=== PATIENT | male | born 1945 | race Caucasian/White ===

== ENCOUNTER 2017-01-11 13:09 | Inpatient (IN) | payer MEDICARE, MEDICAID ==
--- NOTE | 2017-01-11 13:17 | ED.PDOC ---
History of Present Illness - General Chief Complaint: General Stated Complaint: recurrent falls Time Seen by Provider: 01/11/17 13:16 Source: patient Exam Limitations: no limitations - History of Present Illness Initial Comments: Omid Castro 71 y/o male half-way resident at [facility] brought by ems after he fell on his left side at half-way and unable to get up ,He stated had fell 2-3 x this week at [facility].Denies head ,neck injuries.No weakness,no blurry vision but his arms had been twitching after he fell. Timing/Duration: 1-3 hours Severity: moderate Improving Factors: nothing Worsening Factors: nothing Associated Symptoms: shortness of breath Allergies/Adverse Reactions: Allergies Celecoxib [From Celebrex] Allergy (Verified 01/11/17 13:46) Metformin Allergy (Verified 01/11/17 13:46) NSAIDs Allergy (Verified 09/26/15 14:55) Home Medications: Ambulatory Orders Ascorbic Acid [Vitamin C] 500 mg PO BID 02/17/14 Furosemide [Lasix] 40 mg PO BID 02/17/14 HYDROcodone 7.5MG/APAP 325MG [[place] 7.5/325] 1 tab PO Q4H PRN 02/17/14 Metoprolol Tartrate 25 mg PO BID 02/17/14 Potassium Chloride [K-Tab] 40 meq PO DAILY 10/05/14 Albuterol Inhaler [Ventolin Hfa Inhaler] 2 puff INH Q6H PRN 09/26/15 Buspirone HCl 5 mg PO TID 09/26/15 Calcium Carbonate-Cholecalcife [Calcium 600+D3 600-400 mg-Unit] 1 tab PO DAILY 09/26/15 Ferrous Sulfate [Iron] 325 mg PO DAILY 09/26/15 Fluticasone-Salmeterol [Advair Hfa] 2 inh IN BID 09/26/15 Nitroglycerin 0.4 mg Tab [Nitrostat] 1 ea SL PRN 09/26/15 Warfarin Sodium [Coumadin] 4 mg PO MOTUWETHFR 09/26/15 Warfarin Sodium [Coumadin] 6 mg PO SUSA 09/26/15 predniSONE 10 mg PO QAM 09/26/15 Duloxetine HCl [Cymbalta] 60 mg PO BEDTIME 01/11/17 Gabapentin [Neurontin] 300 mg PO Q8H 01/11/17 Ipratropium/Albuterol [Duoneb] 3 ml NEB QID PRN 01/11/17 Lactobacillus [Acidophilus] 2 cap PO TID 01/11/17 Loperamide HCl 2 mg PO PRN 01/11/17 Urea 40 % EX DAILY 01/11/17 Review of Systems - Review of Systems Constitutional: States: no symptoms reported EENTM: States: no symptoms reported Respiratory: States: see HPI Cardiology: States: no symptoms reported Gastrointestinal/Abdominal: States: no symptoms reported Genitourinary: States: no symptoms reported Musculoskeletal: States: see HPI Skin: States: no symptoms reported Neurological: States: no symptoms reported Past Medical History (General) - Patient Medical History Hx Seizures: No Hx Stroke: No Hx Dementia: No Hx Asthma: No Hx of COPD: Yes Hx Cardiac Disorders: Yes - A-fib, heart failure Hx Congestive Heart Failure: No Hx Pacemaker: No Hx Hypertension: Yes Hx Thyroid Disease: No Hx Diabetes: No Hx Gastroesophageal Reflux: Yes Hx Renal Disease: No Hx Cancer: No Hx of HIV: No Hx Hepatitis C: No Hx MRSA: No Hx Other PMH: Yes - sleep apnea on cpap MRSA Source:: Wound Surgical History: cholecystectomy, other - cataracts;toe amputations both feet- frostbite - Vaccination History Hx Tetanus, Diphtheria Vaccination: Yes Hx Influenza Vaccination: Yes - 2013 Hx Pneumococcal Vaccination: Yes - 2013 - Social History Hx Tobacco Use: Yes Years Tobacco Use: 55 Cigarettes Packs Per Day: 20 Hx Chewing Tobacco Use: No - does not chew anymore Hx Alcohol Use: No Hx Substance Use: No Hx Substance Use Treatment: No Hx Depression: Yes Hx Physical Abuse: No Hx Emotional Abuse: No Hx Suspected Abuse: No - Female History Patient : No Family Medical History - Family History Mother Family History: No Known Name: mom Age (years): 56 Living Status: Still Living Cause of : cancer Hx Family Asthma: No Hx Family Congestive Heart Failure: No Hx Family Hypertension: No Hx Family Stroke: No Hx Cardiac Disease: No Hx Family Diabetes: No Hx Family Cancer: Yes Physical Exam - Physical Exam General Appearance: Alert, No apparent distress, Other - speech fluent Eye Exam: bilateral normal Ears, Nose, Throat: normal pharynx Neck: full range of motion Respiratory: no respiratory distress, decreased breath sounds Cardiovascular/Chest: normal peripheral pulses, no murmur, irregularly irregular Peripheral Pulses: radial,right: 2+, radial,left: 2+ Gastrointestinal/Abdominal: normal bowel sounds, non tender, soft, no organomegaly Extremity: non-tender, pedal edema, other - all toes amputated Neurologic: no motor/sensory deficits, alert, oriented x 3, other - negative pronator drift Skin Exam: warm/dry Lymphatic: no adenopathy Progress - Progress Progress: 01/11/17 13:39 Last Vital Signs Temp 99.5 F 01/11/17 13:20 Pulse 80 01/11/17 13:20 Resp 24 01/11/17 13:20 BP 134/70 01/11/17 13:20 Pulse Ox 73 L 01/11/17 13:20 - Results/Orders Results/Orders: Laboratory Tests 01/11/17 01/11/17 01/11/17 13:46 13:55 14:50 WBC 14.5 H RBC 5.97 Hgb 17.4 Hct 54.1 H MCV 90.6 MCH 29.1 MCHC 32.1 L RDW 14.8 H Plt Count 174 MPV 9.3 Absolute Neuts (auto) 12.20 H Absolute Lymphs (auto) 1.30 Absolute Monos (auto) 0.90 H Absolute Eos (auto) 0.00 Absolute Basos (auto) 0.10 Neutrophils % 83.8 H Lymphocytes % 9.0 L Monocytes % 6.4 Eosinophils % 0.2 L Basophils % 0.6 PT INR PTT (SP) D-Dimer, Quantitative Sodium Potassium Chloride Carbon Dioxide Anion Gap BUN Creatinine BUN/Creatinine Ratio Random Glucose Serum Osmolality Lactic Acid Uric Acid 7.4 H Calcium Magnesium 2.2 Total Bilirubin AST ALT Alkaline Phosphatase Troponin I B-Natriuretic Peptide Serum Total Protein Albumin Globulin Albumin/Globulin Ratio Urine Color Yellow Urine Appearance Clear Urine pH 5.0 Ur Specific [place] 1.015 Urine Protein Negative Urine Glucose (UA) Negative Urine Ketones Negative Urine Blood Trace-intact H Urine Nitrite Negative Urine Bilirubin Negative Urine Urobilinogen 0.2 Ur Leukocyte Esterase Negative Urine RBC 0-1 Urine WBC 0 Ur Epithelial Cells 1-3 Urine Bacteria 0 01/11/17 01/11/17 01/11/17 14:50 14:50 14:50 WBC RBC Hgb Hct MCV MCH MCHC RDW Plt Count MPV Absolute Neuts (auto) Absolute Lymphs (auto) Absolute Monos (auto) Absolute Eos (auto) Absolute Basos (auto) Neutrophils % Lymphocytes % Monocytes % Eosinophils % Basophils % PT 18.4 H INR 1.640 PTT (SP) 39.9 H D-Dimer, Quantitative 380 H* Sodium 143 Potassium 4.6 Chloride 102 Carbon Dioxide 36 H Anion Gap 9.6 L BUN 36 H Creatinine 2.13 H BUN/Creatinine Ratio 16.9 Random Glucose 112 H Serum Osmolality 294.1 Lactic Acid Uric Acid Calcium 9.5 Magnesium Total Bilirubin 0.3 AST 17 ALT 17 Alkaline Phosphatase 70 Troponin I 0.04 B-Natriuretic Peptide 95.0 Serum Total Protein 7.2 Albumin 3.9 Globulin 3.3 Albumin/Globulin Ratio 1.2 Urine Color Urine Appearance Urine pH Ur Specific [place] Urine Protein Urine Glucose (UA) Urine Ketones Urine Blood Urine Nitrite Urine Bilirubin Urine Urobilinogen Ur Leukocyte Esterase Urine RBC Urine WBC Ur Epithelial Cells Urine Bacteria 01/11/17 16:56 WBC RBC Hgb Hct MCV MCH MCHC RDW Plt Count MPV Absolute Neuts (auto) Absolute Lymphs (auto) Absolute Monos (auto) Absolute Eos (auto) Absolute Basos (auto) Neutrophils % Lymphocytes % Monocytes % Eosinophils % Basophils % PT INR PTT (SP) D-Dimer, Quantitative Sodium Potassium Chloride Carbon Dioxide Anion Gap BUN Creatinine BUN/Creatinine Ratio Random Glucose Serum Osmolality Lactic Acid 0.6 Uric Acid Calcium Magnesium Total Bilirubin AST ALT Alkaline Phosphatase Troponin I B-Natriuretic Peptide Serum Total Protein Albumin Globulin Albumin/Globulin Ratio Urine Color Urine Appearance Urine pH Ur Specific [place] Urine Protein Urine Glucose (UA) Urine Ketones Urine Blood Urine Nitrite Urine Bilirubin Urine Urobilinogen Ur Leukocyte Esterase Urine RBC Urine WBC Ur Epithelial Cells Urine Bacteria Allergies Celecoxib [From Celebrex] Allergy (Verified 01/11/17 13:46) Metformin Allergy (Verified 01/11/17 13:46) NSAIDs Allergy (Verified 09/26/15 14:55) Clinical Data Height 6 ft 1 in Weight 294 lb Visit Reason RECURRENT FALLS,HX COPD,A-FIB General Patient Data Advance Directives No Resuscitation Status Full Code Date of Arrival on Unit: Time of Arrival on Unit: Mode of Arrival Stretcher Accompanied By Alone Precaution/Isolation: Vital Signs Temp Pulse Resp BP Pulse Ox 99.5 F 79 22 132/84 92 L 01/11/17 13:20 01/11/17 17:00 01/11/17 17:00 01/11/17 17:00 01/11/17 17:00 I&O 01/10/17 01/11/17 01/12/17 06:59 06:59 06:59 Intake Total 50 Balance 50 Intake: IV 50 Rocephin 1 GM In NS 50ml 50 MINI-BAG+ 50 ML @ 100 mls /hr IVPB Q24H [facility] Rx#: [id number] Other: Weight 294 lb Weight Measurement Method Stated by Patient Nursing Care Orders 01/11/17 13:40 SVN/Updraft Therapy .ONCE 01/11/17 16:22 SVN/Updraft Therapy .ONCE Laboratory Orders 01/11/17 16:56 BLOOD CULTURE Stat Comment: ISIAH Source: Blood Quantity: 2 Specimen: Send someone from the department to collect Specimen Description: Respiratory Orders 01/11/17 16:00 ABG [Arterial Blood Gas] Stat Comment: Specimen: Send someone from the department to collect Site: Arterial CO-OX: Without CO-OX EKG STAT Comment: 01/11/17 17:58 ABG [Arterial Blood Gas] Stat Comment: Specimen: Send someone from the department to collect Site: Arterial CO-OX: With CO-OX 01/12/17 09:00 Updrafts Daily Comment: Medication(s): duoneb Updrafts Daily Comment: Medication(s): duoneb Medications Orders 01/11/17 16:30 cefTRIAXone SODIUM [Rocephin] 1 gm Sodium Chl 0.9% 50Ml Min-Bag+ [NS 50ml MINI -BAG+] 50 ml IVPB Q24H 01/11/17 13:40 SVN/Updraft Therapy .ONCE 01/11/17 16:00 ABG [Arterial Blood Gas] Stat EKG STAT 01/11/17 16:22 SVN/Updraft Therapy .ONCE 01/11/17 16:30 cefTRIAXone SODIUM [Rocephin] 1 gm Sodium Chl 0.9% 50Ml Min-Bag+ [NS 50ml MINI -BAG+] 50 ml IVPB Q24H 01/11/17 16:56 BLOOD CULTURE Stat 01/11/17 17:58 ABG [Arterial Blood Gas] Stat 01/12/17 09:00 Updrafts Daily Updrafts Daily Laboratory Results WBC 14.5 K/mm3 (4.8-10.8) H 01/11/17 14:50 RBC 5.97 M/mm3 (4.70-6.10) 01/11/17 14:50 Hgb 17.4 gm/dL (14.0-18.0) 01/11/17 14:50 Hct 54.1 % (42.0-52.0) H 01/11/17 14:50 MCV 90.6 fl (80.0-94.0) 01/11/17 14:50 MCH 29.1 pg (27.0-31.0) 01/11/17 14:50 MCHC 32.1 g/dL (33.0-37.0) L 01/11/17 14:50 RDW 14.8 % (11.5-14.5) H 01/11/17 14:50 Plt Count 174 K/mm3 (130-400) 01/11/17 14:50 MPV 9.3 fl (7.40-10.4) 01/11/17 14:50 Absolute Neuts (auto) 12.20 K/uL (1.8-6.8) H 01/11/17 14:50 Absolute Lymphs (auto) 1.30 K/uL (1.0-3.4) 01/11/17 14:50 Absolute Monos (auto) 0.90 K/uL (0.2-0.8) H 01/11/17 14:50 Absolute Eos (auto) 0.00 K/uL (0.0-0.4) 01/11/17 14:50 Absolute Basos (auto) 0.10 K/uL (0.0-0.1) 01/11/17 14:50 Neutrophils % 83.8 % (42.0-78.0) H 01/11/17 14:50 Lymphocytes % 9.0 % (20.0-50.0) L 01/11/17 14:50 Monocytes % 6.4 % (2.0-9.0) 01/11/17 14:50 Eosinophils % 0.2 % (1.0-5.0) L 01/11/17 14:50 Basophils % 0.6 % (0.0-2.0) 01/11/17 14:50 PT 18.4 SECONDS (9.4-12.5) H 01/11/17 14:50 INR 1.640 01/11/17 14:50 PTT (SP) 39.9 SECONDS (25.1-36.5) H 01/11/17 14:50 D-Dimer, Quantitative 380 ng/mL (0-230) H* 01/11/17 14:50 Sodium 143 mmol/L (135-145) 01/11/17 14:50 Potassium 4.6 mmol/L (3.6-5.0) 01/11/17 14:50 Chloride 102 mmol/L (101-111) 01/11/17 14:50 Carbon Dioxide 36 mmol/L (21-31) H 01/11/17 14:50 Anion Gap 9.6 (12-18) L 01/11/17 14:50 BUN 36 mg/dL (7-18) H 01/11/17 14:50 Creatinine 2.13 mg/dL (0.6-1.3) H 01/11/17 14:50 BUN/Creatinine Ratio 16.9 (10-20) 01/11/17 14:50 Random Glucose 112 mg/dL (70-105) H 01/11/17 14:50 Serum Osmolality 294.1 mOsm/L (275-295) 01/11/17 14:50 Lactic Acid 0.6 mmol/L (0.5-2.2) 01/11/17 16:56 Uric Acid 7.4 mg/dL (2.6-7.2) H 01/11/17 13:46 Calcium 9.5 mg/dL (8.4-10.2) 01/11/17 14:50 Magnesium 2.2 mg/dL (1.8-2.5) 01/11/17 13:46 Total Bilirubin 0.3 mg/dL (0.2-1.0) 01/11/17 14:50 AST 17 IU/L (10-42) 01/11/17 14:50 ALT 17 IU/L (10-60) 01/11/17 14:50 Alkaline Phosphatase 70 IU/L (42-121) 01/11/17 14:50 Troponin I 0.04 ng/mL (0.01-0.05) 01/11/17 14:50 B-Natriuretic Peptide 95.0 pg/ml (0-100) 01/11/17 14:50 Serum Total Protein 7.2 gm/dL (6.4-8.2) 01/11/17 14:50 Albumin 3.9 g/dl (3.2-5.5) 01/11/17 14:50 Globulin 3.3 gm/dL (2.3-3.5) 01/11/17 14:50 Albumin/Globulin Ratio 1.2 (1.1-1.9) 01/11/17 14:50 Urine Color Yellow (Yellow) 01/11/17 13:55 Urine Appearance Clear (Clear) 01/11/17 13:55 Urine pH 5.0 (4.5-7.8) 01/11/17 13:55 Ur Specific [place] 1.015 (1.005-1.030) 01/11/17 13:55 Urine Protein Negative mg/dL 01/11/17 13:55 Urine Glucose (UA) Negative mg/dL (Negative) 01/11/17 13:55 Urine Ketones Negative mg/dL (NEGATIVE) 01/11/17 13:55 Urine Blood Trace-intact (Negative) H 01/11/17 13:55 Urine Nitrite Negative 01/11/17 13:55 Urine Bilirubin Negative (NEGATIVE) 01/11/17 13:55 Urine Urobilinogen 0.2 mg/dL (0.2-1.0) 01/11/17 13:55 Ur Leukocyte Esterase Negative (Negative) 01/11/17 13:55 Urine RBC 0-1 /hpf 01/11/17 13:55 Urine WBC 0 /hpf 01/11/17 13:55 Ur Epithelial Cells 1-3 /hpf 01/11/17 13:55 Urine Bacteria 0 01/11/17 13:55 Abnormal Lab Results 01/11/17 01/11/17 01/11/17 13:46 13:55 14:50 WBC 14.5 H Hct 54.1 H MCHC 32.1 L RDW 14.8 H Absolute Neuts (auto) 12.20 H Absolute Monos (auto) 0.90 H Neutrophils % 83.8 H Lymphocytes % 9.0 L Eosinophils % 0.2 L PT PTT (SP) D-Dimer, Quantitative Carbon Dioxide Anion Gap BUN Creatinine Random Glucose Uric Acid 7.4 H Urine Blood Trace-intact H 01/11/17 01/11/17 14:50 14:50 WBC Hct MCHC RDW Absolute Neuts (auto) Absolute Monos (auto) Neutrophils % Lymphocytes % Eosinophils % PT 18.4 H PTT (SP) 39.9 H D-Dimer, Quantitative 380 H* Carbon Dioxide 36 H Anion Gap 9.6 L BUN 36 H Creatinine 2.13 H Random Glucose 112 H Uric Acid Urine Blood - EKG/XRAY/CT EKG: Sinus, nonspecific ST T wave Chg Comments: Heart rate-70;PAC,IRBBB,low voltage qrs XRAY: chest - interstitial prominence/infiltrate Departure - Departure Clinical Impression: COPD exacerbation, Renal insufficiency, CO2 retention Respiratory failure Qualifiers: Chronicity: acute on chronic Respiratory failure complication: hypoxia and hypercapnia Qualified Code(s): J96.21 - Acute and chronic respiratory failure with hypoxia Time of Disposition: 18:31 Disposition: Admit Patient Condition: Fair Departure Forms: Patient Portal Self Enrollment Referrals: Collin Correia MD [Family Provider] - 1-2 Weeks Home Medications: Ambulatory Orders Ascorbic Acid [Vitamin C] 500 mg PO BID 02/17/14 Furosemide [Lasix] 40 mg PO BID 02/17/14 HYDROcodone 7.5MG/APAP 325MG [[place] 7.5/325] 1 tab PO Q4H PRN 02/17/14 Metoprolol Tartrate 25 mg PO BID 02/17/14 Potassium Chloride [K-Tab] 40 meq PO DAILY 10/05/14 Albuterol Inhaler [Ventolin Hfa Inhaler] 2 puff INH Q6H PRN 09/26/15 Buspirone HCl 5 mg PO TID 09/26/15 Calcium Carbonate-Cholecalcife [Calcium 600+D3 600-400 mg-Unit] 1 tab PO DAILY 09/26/15 Ferrous Sulfate [Iron] 325 mg PO DAILY 09/26/15 Fluticasone-Salmeterol [Advair Hfa] 2 inh IN BID 09/26/15 Nitroglycerin 0.4 mg Tab [Nitrostat] 1 ea SL PRN 09/26/15 Warfarin Sodium [Coumadin] 4 mg PO MOTUWETHFR 09/26/15 Warfarin Sodium [Coumadin] 6 mg PO SUSA 09/26/15 predniSONE 10 mg PO QAM 09/26/15 Duloxetine HCl [Cymbalta] 60 mg PO BEDTIME 01/11/17 Gabapentin [Neurontin] 300 mg PO Q8H 01/11/17 Ipratropium/Albuterol [Duoneb] 3 ml NEB QID PRN 01/11/17 Lactobacillus [Acidophilus] 2 cap PO TID 01/11/17 Loperamide HCl 2 mg PO PRN 01/11/17 Urea 40 % EX DAILY 01/11/17 Decision To Admit - Decistion To Admit Decision to Admit Reason: Admit from ER Decision to Admit Date: 01/11/17 - D/W Ramy Scuhltz-ANP/Hospitalist Decision to Admit Time: 18:31
[2017-01-11] MEDS ORDERED: IPRATROPIUM/ALBUTEROL 3 ML VIAL NEB ONE ×2 (13:40→16:22)
--- NOTE | 2017-01-11 14:49 | RAD ---
EXAM DESCRIPTION: Pelvis CLINICAL HISTORY: 71 years Male, pain COMPARISON: None. FINDINGS: Single AP view the pelvis shows no displaced pelvic fracture. There are degenerative changes in both hips, but the hip joints are anatomically aligned. Degenerative disc disease is noted at L4-5. A small calcification projects over the left side of the sacrum. IMPRESSION: Degenerative changes, but no acute pelvic abnormality. Small left-sided pelvic calcification probably representing a phlebolith. If clinically suspicious of a ureteral calculus, noncontrast CT is suggested. Electronically signed by: Rios Flores MD 01/11/2017 2:48 PM [facility]
--- NOTE | 2017-01-11 14:50 | RAD ---
EXAM DESCRIPTION: Chest,1 View CLINICAL HISTORY: short of breath,low sats COMPARISON: September 26, 2015 FINDINGS: The heart is at the upper limits of normal size, stable. Mediastinal contours are otherwise unremarkable. Bilateral perihilar interstitial opacities are noted, extending into the lung bases. No airspace consolidation or pleural effusion. The bronchovascular markings are within normal limits, and the lungs are not hyperinflated. There is no pneumothorax or acute fracture. IMPRESSION: Bilateral interstitial prominence, nonspecific. Differential considerations include vascular congestion versus viral or other atypical infection. No additional abnormality to explain patient symptoms. Stable borderline heart size. Electronically signed by: Rios Flores MD 01/11/2017 2:49 PM [facility]
--- NOTE | 2017-01-11 14:52 | CT ---
EXAM DESCRIPTION: Head CLINICAL HISTORY: jerking in his arms,bilateral weakness COMPARISON: None Available. TECHNIQUE: Contiguous axial images of the brain were obtained without the administration of intravenous contrast. This exam was performed according to our departmental dose-optimization program, which includes automated exposure control, adjustment of the mA and/or kV according to patient size and/or use of iterative reconstruction technique. FINDINGS: Multiple images are degraded by motion which limits evaluation for a subtle intracranial hemorrhage. No gross intracranial hemorrhage is visualized. A repeat examination when patient is able to cooperate recommended if feasible. There is atherosclerosis. The ventricular system is nondilated. There is no midline shift. There is no discrete skull fracture. IMPRESSION: Multiple images are degraded by motion which limits evaluation for a subtle intracranial hemorrhage. No gross intracranial hemorrhage is visualized. A repeat examination when patient is able to cooperate recommended if feasible. Electronically signed by: Saul Reed MD 01/11/2017 2:50 PM [facility]
[2017-01-11] MEDS ORDERED: AZITHROMYCIN IV 500 MG in SODIUM CHLORIDE 0.9% 250ML 250 ML IVPB ONE (16:25)
[2017-01-11] MEDS ORDERED: PANTOPRAZOLE SODIUM TAB 40 MG PO ONE (16:26)
[2017-01-11] MEDS ORDERED: cefTRIAXone SODIUM 1 GM in SODIUM CHL 0.9% 50ML MIN-BAG+ 50 ML IVPB SCH (16:30)
[2017-01-11] MEDS ORDERED: cefTRIAXone SODIUM 1 GM VIAL ONE (16:51)
[2017-01-11] MEDS ORDERED: SODIUM CHL 0.9% 50ML MIN-BAG+ 50 ML IVPB ONE ×2 (16:51→21:55)
[2017-01-11] MEDS ORDERED: SODIUM CHLORIDE 0.9% 250ML 250 ML ONE (17:31)
[2017-01-11] MEDS ORDERED: AZITHROMYCIN IV 500 MG VIAL IVPB ONE (17:31)
--- NOTE | 2017-01-11 20:04 | HP ---
SUPERVISING PHYSICIAN: Buddy Gonzalez M.D. CHIEF COMPLAINT: Multiple falls. HISTORY OF PRESENT ILLNESS: Mr. Porras is a 71 year-old male patient that resides at [facility]. He was brought to the Emergency Department by EMS after he had sustained a same level fall on his left side and was unable to get up. He noted to the EMS that he had been falling 2 to 3 times a week. He denied any injuries, neck pain or back pain. He does have a history of obstructive sleep apnea as well as chronic obstructive pulmonary disease and multiple episodes of previous admissions for pneumonia. Initial workup in the E. R. included laboratory studies that showed a leukocytosis of 14,500 with a left shift. His coagulation studies showed an elevated carbon dioxide of 36 with renal function showing BUN of 36, creatinine 2.13. The patient does also have a history of stage IV chronic kidney disease. His lactic acid was within normal limits at 0.06, magnesium was normal at 2.2 as well as his troponin was within normal limits at 0.04 and BNP was 95. Due to the same level fall, he had multiple x-rays that included a pelvis x-ray and a CT of the head. Per radiology interpretation the pelvis x-ray showed small left sided calcifications representing phleboliths. Other than that, no acute pelvic abnormalities. The CT of the head without contrast was limited per radiology interpretation due to the patient's movement, but no gross intracranial hemorrhages were visualized. He had a chest x-ray that showed bilateral interstitial prominences per radiology interpretation. His initial vital signs in the Emergency Department showed that his O2 saturations were 70 on room air and improved somewhat, but only to 87% with nasal cannula. He was afebrile with temperature 99.5, but he was having some mild increased respiratory effort with respirations anywhere from 18 to 24. ABGs were then completed showing that he was in respiratory acidosis with a pH of 7.26, PCO2 of 76 and he was showing significant hypoxemia with a PO2 of 59 satting 88% and bicarb of 33.6 with his ABGs being collected on room air. He does wear a CPAP at night and apparently has not been wearing it as such as he is directed. Dr. Gregory yesterday started him on BiPAP and ABGs 30 minutes after being on BiPAP showed a pH of 7.3 with PCO2 that was somewhat improved down to 65 with PO2 up to 80 satting 95% with BiPAP at 50% FiO2. The patient showed good response to BiPAP and breathing treatments. Given that he was showing bilateral pneumonia was initiated on treatment for exacerbation of chronic obstructive pulmonary disease with healthcare acquired pneumonia suspected initially started on antibiotics to include Rocephin and Azithromycin as well as given breathing treatments. He did improve in his respiratory effort after which time Dr. Gregory requested the patient be admitted to the hospital for ongoing treatment of underlying pneumonia, aggressive pulmonary hygiene and respiratory support. The patient was admitted in stable condition. Most of the history of current illness and past medical history was obtained from previous medical records as the patient was unable to provide input into his health status while being on BiPAP. PAST MEDICAL HISTORY: 1. Atrial fibrillation on chronic anticoagulation therapy with Coumadin. 2. High blood pressure. 3. Chronic tobacco abuse. 4. History of stage IV chronic kidney disease. 5. Chronic obstructive pulmonary disease with chronic hypoxemia. 6. Multiple episodes of hospitalization secondary to pneumonia both in 2013 and 2013. 7. History of deep venous thrombosis in the left lower extremity. 8. History of cellulitis of both lower extremities. 9. 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 10. Obstructive sleep apnea on CPAP. PAST SURGICAL HISTORY: 1. Tonsillectomy. 2. Cholecystectomy. 3. Hemorrhoidectomy. 4. Amputation of multiple toes on both lower extremities secondary to frostbite. CURRENT MEDICATIONS: Please see updated list of medications from the half-way per electronic medical record and nurse review. Current medications listed at time of admission include: 1. Prednisone 10 mg daily. 2. Coumadin 6 mg Thursday and Thursday. 3. Coumadin 4 mg Thursday through Thursday. 4. Urea 40% daily. 5. K-Tab 40 mEq daily. 6. Nitroglycerin 1 sublingual p.r.n. 7. Metoprolol 25 mg b.i.d. 8. Loperamide 2 mg daily. 9. Acidophilus 2 tablets 3 times a day. 10. DuoNeb treatments q.i.d. as needed. 11. [place] 7.5/325 1 tablet every 4 hours as needed. 12. Gabapentin 300 mg every 8 hours. 13. Lasix 40 mg b.i.d. 14. Advair 2 puffs inhaled b.i.d. 15. Iron sulfate 325 mg daily. 16. Cymbalta 60 mg at bedtime. 17. Calcium supplement 1 caplet daily. 18. Buspirone 5 mg 3 times a day. 19. Vitamin C 500 mg twice daily. 20. Albuterol inhaler as needed. ALLERGIES: METFORMIN, NSAIDs AND CELEBREX. FAMILY HISTORY: Noncontributory. SOCIAL HISTORY: Mr. Porras lives at [facility]. He is having served in the [email or web address] and [employer]. He does have a history of 75 pack per year history of smoking. The patient is currently smoking heavily. He denies any alcohol or illicit drug use. REVIEW OF SYSTEMS: Unobtainable secondary to the patient's being noncooperative. PHYSICAL EXAMINATION: VITAL SIGNS: On admission to the Emergency Department showed temperature 99.5, pulse 80, satting 73% on room air, blood pressure 134/70, respirations was 18 to 24 with some labored noted. After breathing treatment and nasal cannula he was somewhat improved to 87% and then after placed on BiPAP with 50% showing 94% saturations. Admission weight 103.35 kg. GENERAL: The patient is very unkempt. He is resting comfortably on BiPAP. He will answer questions when prompted but easily goes back to sleep. Noted on admission prior to BiPAP placement, the patient was with normal speech pattern and cooperative. HEENT: Tympanic membranes were partially occluded with cerumen bilaterally. Oropharynx was pink and moist. There was notable bilateral conjunctival redness with drainage. NECK: Supple with full range of motion, non-tender with no jugular venous distention. CHEST: Lung sounds were distant and diminished bilaterally towards the bases, but no obvious wheezing or rhonchi were noted. The patient utilizing BiPAP was showing no distress. CARDIOVASCULAR: Heart was slightly irregular rate and rhythm but no appreciable murmurs, gallops, or rubs with heart tones being distant. ABDOMEN: Obese but soft, non-tender with positive bowel sounds. EXTREMITIES: There was no notable cyanosis, clubbing or edema. Lower extremities were notable for bilateral multiple toe amputations. NEUROLOGIC: Difficult to fully assess neurological assessment although the patient when taken off BiPAP will answer questions appropriately. Shows no obvious motor deficits but shows to be weak. He is alert and oriented times three but easily drifts off to sleep once placed back on BiPAP. LABORATORY: CBC showed a leukocytosis of 14,500 with hemoglobin 17.4, hematocrit 54.1, platelet count 174,000. Differential did show a left shift. Coagulation studies showed a PT of 18.4 with INR of 1.64, PTT was 39.9. D- dimer was 380. Chemistries showed normal electrolytes, although carbon dioxide was noted to be elevated at 36, BUN was 36, creatinine 2.13. Review of past laboratory studies show that he has a baseline creatinine of about 2 to 2.3, glucose 112, lactic acid was 0.6, calcium 9.5. Liver functions showed to be within normal limits. Magnesium 2.2, troponin 0.04. BNP was normal at 95. Urinalysis showed just a trace of intact blood, otherwise within normal limits. Initial blood gas on room air showed a pH of 7.26, PCO2 of 76.7, PO2 of 59, bicarb was 33.6, O2 was 88.2 on room air. Repeat ABG on room air after 30 minutes on 50% FiO2 on BiPAP showed a pH of 7.3 with PCO2 of 65, PO2 was 80, bicarb was 31.2, saturations were showing 95.8%. MICROBIOLOGY: Blood cultures are pending. RADIOLOGY: Pelvic x-ray shows a small left sided pelvic calcification probably representing a phlebolith per radiology interpretation. No acute pelvic abnormalities were noted. Chest x-ray single view chest shows bilateral perihilar interstitial opacities. Consideration for vascular congestion versus viral or other atypical infection per radiology interpretation. EKG 12-lead shows sinus arrhythmia with a right bundle branch block and a left anterior fascicular block with no acute changes compared to previous EKG on 05/08. ASSESSMENT: 1. Acute exacerbation of chronic obstructive pulmonary disease with hypercapnia and a moderate hypoxemia. 2. Respiratory acidosis requiring noninvasive ambulatory support with BiPAP secondary to #1. 3. Bilateral pneumonia healthcare acquired as the patient does reside at a snf care facility as evidenced by radiographic studies resulting in #1 and #2. 4. History of obstructive sleep apnea utilizing CPAP. 5. Bilateral conjunctivitis most likely viral felt to be secondary from CPAP usage. 6. Chronic kidney disease stage IV showing some exacerbation secondary to some mild dehydration. 7. Chronic tobacco abuse. 8. Hypertension. 9. History of atrial fibrillation on chronic Coumadin therapy with a subtherapeutic Coumadin level. 10. History of deep venous thrombosis of the left lower extremity. 11. History of multiple episodes of pneumonia in the past in 2013 and 2013 requiring hospitalization. 12. History of cellulitis of both lower extremities. 13. Obesity as noted by body mass index of 38.8. PLAN: The patient will be admitted to the hospital for initiation of antibiotic therapy and treatment of underlying pneumonia, and his exacerbation of chronic obstructive pulmonary disease with respiratory acidosis. He will be continued on BiPAP as tolerated and slowly titrated to nasal cannula if possible. Will utilize aggressive pulmonary hygiene with q.i.d. DuoNeb treatments. Will continue antibiotic therapy tonight given that he does have a history of previous pneumonia and resides in a extermination inspector care facility, will start him on Cefepime and Zyvox. He was given a dose of Rocephin and Azithromycin in the Emergency Department. Given his degree of respiratory failure, will utilize some Solu-Medrol as well, initially load him up with 125 mg and continue with 80 mg every 6 hours for 3 doses, and reevaluate tomorrow clinically. Review of his records does show that he is on chronic prednisone therapy. Will give him some IV fluids to help with dehydration with half normal saline at 80 an hour and monitor closely. He does have a normal BNP but given the findings on x-ray, cannot fully rule out underlying possible vascular congestion, although there is no mention of history of congestive heart failure in his history. Will plan to repeat laboratory studies in the morning as well as a chest x-ray. Will resume his home medications once those have been update and verified in the electronic medical records. Given his history of past DVTs , will start him on DVT prophylaxis despite him being on Coumadin as he is subtherapeutic, will go ahead and start him on some Lovenox as per protocol. Will anticipate his length of stay to be at least 2 to 3 days. Until clinically stable and able to be discharged to continue with outpatient treatment plan, will continue to follow the patient closely and treat appropriately. #[id number] and [id number] [facility]
[2017-01-11] MEDS ORDERED: ACETAMINOPHEN 325 MG TAB PO PRN (20:35)
[2017-01-11] MEDS ORDERED: ONDANSETRON INJ 4 MG/2 ML VIAL IV PRN (20:35)
[2017-01-11] MEDS ORDERED: ALBUTEROL SULFATE 2.5 MG/3 ML VIAL NEB PRN (20:35)
[2017-01-11] MEDS ORDERED: methylPREDNISolone SODIUM SUC 125 MG/2 ML VIAL IV ONE (20:41)
[2017-01-11] MEDS: IPRATROPIUM/ALBUTEROL 3 ML VIAL INH SCH (21:40)
[2017-01-11] MEDS ORDERED: LINEZOLID IV 300 ML IVPB ONE (21:52)
[2017-01-11] MEDS ORDERED: CEFEPIME 2 GM VIAL IVPB ONE (21:52)
[2017-01-11] MEDS: GENTAMICIN 0.3% OPHTH SOL 1 DROP BOTH_EYES SCH (22:01)
[2017-01-11] MEDS: SODIUM CHLORIDE 0.45% 1000ML 1,000 ML IVS PRN (22:02)
[2017-01-11] MEDS: CEFEPIME 2 GM in SODIUM CHL 0.9% 50ML MIN-BAG+ 50 ML IVPB SCH (22:02)
[2017-01-11] MEDS: ENOXAPARIN SODIUM 40 MG/0.4 ML SYG SUBCU SCH (22:03)
[2017-01-11] MEDS: IV SET AND CAP CHANGE INJ INJ SCH (22:12)
[2017-01-11] MEDS: LINEZOLID IV 600 MG in PREMIX BAG 1 BAG IVPB SCH (22:13)
--- NOTE | 2017-01-12 02:32 | PCM.CORE ---
Physician DVT/VTE - Prophylaxis Currently: Patient already on anticoagulation therapy - Nurse DVT Assessment & Total Each Risk Factor Represents 3 Points: Medical PT with Hx of ID, CHF, Severe infection/sepsis Each Risk Factor Represents 2 Points: Age 60-74 Each Risk Factor Represents 1 Point: Medical PT at Bed Rest Each Risk Factor is 1 Point: Obesity (BMI >25), Serious Lung disease (pnemonia < 1month, COPD, emphysema,etc) DVT Assessment Score: 8 - 5 or more Very High Risk Treatments: Early Ambulation *, Sequential Compression Device Pharmacological: Warfarin daily
[2017-01-12] MEDS ORDERED: PANTOPRAZOLE SODIUM IV 40 MG VIAL IV SCH (06:30)
--- NOTE | 2017-01-12 08:05 | RAD ---
EXAM DESCRIPTION: Chest,1 View CLINICAL HISTORY: 71 years,Male,Pneumonia COMPARISON: January 11, 2017 FINDINGS: Bilateral mild interstitial changes in indistinctness of the pulmonary vascularity. No focal consolidations or effusions. Heart size and pulmonary vascularity are normal. Bony elements are unremarkable for age. IMPRESSION: Stable exam demonstrating bilateral mild interstitial changes. This could be due to mild edema or pulmonary venous congestion. But could be baseline for the patient. Electronically signed by: Moses Denson MD 01/12/2017 8:04 AM [facility]
[2017-01-12] MEDS: IPRATROPIUM/ALBUTEROL 3 ML VIAL INH SCH ×4 (08:53→20:16)
[2017-01-12] MEDS ORDERED: methylPREDNISolone SODIUM SUC 125 MG/2 ML VIAL IV SCH (09:00)
[2017-01-12] MEDS ORDERED: CEFEPIME 2 GM VIAL IVPB ONE ×2 (09:02→20:15)
[2017-01-12] MEDS ORDERED: SODIUM CHL 0.9% 50ML MIN-BAG+ 50 ML IVPB ONE ×2 (09:02→20:14)
[2017-01-12] MEDS: GENTAMICIN 0.3% OPHTH SOL 1 DROP BOTH_EYES SCH ×4 (09:39→21:10)
[2017-01-12] MEDS: CEFEPIME 2 GM in SODIUM CHL 0.9% 50ML MIN-BAG+ 50 ML IVPB SCH ×2 (09:39→20:58)
[2017-01-12] MEDS ORDERED: LINEZOLID IV 600 MG in PREMIX BAG 1 BAG IVPB SCH (10:00)
[2017-01-12] MEDS ORDERED: LINEZOLID IV 300 ML IVPB ONE (10:20)
[2017-01-12] MEDS: LINEZOLID IV 600 MG in PREMIX BAG 1 BAG IVPB SCH (10:22)
[2017-01-12] MEDS: SODIUM CHLORIDE 0.45% 1000ML 1,000 ML IVS PRN (13:32)
[2017-01-12] MEDS ORDERED: NICOTINE PATCH 14 MG TD PRN (14:22)
[2017-01-12] MEDS ORDERED: NEPAFENAC 0.3% OP SCH (14:30)
[2017-01-12] MEDS ORDERED: DIFLUPREDNATE 0.05% OP SCH (14:30)
[2017-01-12] MEDS ORDERED: HYDROcodone 7.5MG/APAP 325MG 1 EA TAB PO PRN (14:32)
--- NOTE | 2017-01-12 14:47 | PN ---
DATE: 01/12/17 SUBJECTIVE: Earlier this morning after spending the night on BiPAP respiratory supplementation and assistance, the patient remained very lethargic and somewhat obtunded. The patient with a recent history of elevated C02 and borderline respiratory failure required continued rest and support in order to provide for adequate ventilation and improvement in his respiratory and metabolic status. He was unable to eat much breakfast this morning. At lunch time, he was much more alert and was taken off the BiPAP for a period of time so that he could eat. When he came off the BiPAP even on 5 liters of nasal cannula, he was still in the low 80s as far as percentage pulse oximetry. The patient's coloration did show some degree of cyanosis at that time as well. He improved again when he was placed back on the BiPAP and will require ongoing support while medications including antibiotics, bronchodilators, and anti- inflammatory medications and pulmonary hygiene will have a change to improve his respiratory condition. He admits to smoking and is having a zhang time committing to stopping smoking. He stopped smoking as he came into the hospital. Nicotine patch will be applied if he requests. OBJECTIVE: VITAL SIGNS: See vital signs. Pulse oximetry 95% on BiPAP. Blood pressure 112/70. Afebrile. Weight 132.2 kg. LUNGS: Diminished breath sounds. HEART: Tones are somewhat distant as well. Ventilatory effort is somewhat improved while BiPAP is being administered. LABORATORY: White count has dropped from 14,500 to 9,600. Hemoglobin 16.8. Repeat blood gas is pending. Blood gas this morning showed pH 7.23 with respiratory acidosis with PC02 79, P02 78, bicarb 31.9. Chemistries show BUN 34 , creatinine 2, potassium 4.7, lactic acid 0.6. Urinalysis showed a trace of hematuria. Blood cultures negative at this point. Chest x-ray does reveal severe chronic obstructive pulmonary disease with some residual changes, probable baseline, yet the possibility of pulmonary venous congestion or edema with some interstitial changes versus an inflammatory process to be observed and treated for. ASSESSMENT: 1. Acute exacerbation of chronic obstructive pulmonary disease with hypercapnia and a moderate hypoxemia. 2. Respiratory acidosis requiring noninvasive ambulatory support with BiPAP secondary to #1. 3. Bilateral pneumonia healthcare acquired as the patient does reside at a terminal press operator care facility as evidenced by radiographic studies resulting in #1 and #2. 4. History of obstructive sleep apnea utilizing CPAP. 5. Bilateral conjunctivitis most likely viral felt to be secondary from CPAP usage. 6. Chronic kidney disease stage IV showing some exacerbation secondary to some mild dehydration. 7. Chronic tobacco abuse. 8. Hypertension. 9. History of atrial fibrillation on chronic Coumadin therapy with a subtherapeutic Coumadin level. 10. History of deep venous thrombosis of the left lower extremity. 11. History of multiple episodes of pneumonia in the past in 2013 and 2013 requiring hospitalization. 12. History of cellulitis of both lower extremities. 13. Obesity as noted by body mass index of 38.8. PLAN: The patient did have his ABG performed this morning after being on BiPAP most of the night and even then, he was still with severe respiratory acidosis and hypercapnic and hypoxic state. Repeat evaluation at 4:30 this afternoon after an additional course of BiPAP therapy while the patient is more alert and having been able to eat his lunch will be checked again to see if there is any ongoing treatment through the treatment being offered. We will continue with basic supportive care. Try a nicotine patch if he feels like he needs it. He may need to be evaluated for candidacy for BiPAP administration instead of CPAP back at [facility]. [facility][id number] [facility]
[2017-01-12] MEDS: METOPROLOL SUCCINATE XL 25 MG TAB PO SCH (15:15)
[2017-01-12] MEDS: GABAPENTIN 300 MG CAP PO SCH ×2 (15:15→22:30)
[2017-01-12] MEDS: busPIRone HCL 5 MG TAB PO SCH ×2 (15:15→20:59)
[2017-01-12] MEDS: POTASSIUM CHLORIDE 20 MEQ TAB PO SCH (15:15)
[2017-01-12] MEDS: BIFIDOBACTERIUM INFANTIS 4 MG CAP PO SCH ×2 (15:15→20:59)
[2017-01-12] MEDS: WARFARIN SODIUM 5 MG TAB PO SCH (15:15)
[2017-01-12] MEDS: methylPREDNISolone SODIUM SUC 40 MG/ML VIAL IV SCH (16:45)
[2017-01-12] MEDS: FUROSEMIDE 40 MG TAB PO SCH (17:26)
[2017-01-12] MEDS: FLUTICASONE INH SCH (20:20)
[2017-01-12] MEDS: SALMETEROL INH SCH (20:20)
[2017-01-12] MEDS: [UNRECOGNIZED DRUG - OTHER] INH SCH (20:20)
[2017-01-12] MEDS: ENOXAPARIN SODIUM 40 MG/0.4 ML SYG SUBCU SCH ×2 (20:59→21:05)
[2017-01-12] MEDS: DULoxetine HCL 30 MG CAP PO SCH (20:59)
[2017-01-12] MEDS: ASCORBIC ACID 500 MG TAB PO SCH (21:00)
[2017-01-13] MEDS: SODIUM CHLORIDE 0.9% (FLUSH) 10 ML SYG IV PRN ×3 (00:28→16:04)
[2017-01-13] MEDS: methylPREDNISolone SODIUM SUC 40 MG/ML VIAL IV SCH ×3 (00:28→16:04)
[2017-01-13] MEDS: SODIUM CHLORIDE 0.45% 1000ML 1,000 ML IVS PRN (03:14)
[2017-01-13] MEDS ORDERED: PANTOPRAZOLE SODIUM TAB 40 MG PO ONE (05:08)
[2017-01-13] MEDS: GABAPENTIN 300 MG CAP PO SCH ×3 (06:30→21:45)
[2017-01-13] MEDS: PANTOPRAZOLE SODIUM TAB 40 MG PO SCH (06:30)
[2017-01-13] MEDS ORDERED: SODIUM CHL 0.9% 50ML MIN-BAG+ 50 ML IVPB ONE ×2 (08:13→20:10)
[2017-01-13] MEDS ORDERED: CEFEPIME 2 GM VIAL IVPB ONE ×2 (08:14→20:10)
[2017-01-13] MEDS: POTASSIUM CHLORIDE 20 MEQ TAB PO SCH (08:43)
[2017-01-13] MEDS: METOPROLOL SUCCINATE XL 25 MG TAB PO SCH (08:45)
[2017-01-13] MEDS: BIFIDOBACTERIUM INFANTIS 4 MG CAP PO SCH (08:46)
[2017-01-13] MEDS: busPIRone HCL 5 MG TAB PO SCH ×3 (08:46→21:44)
[2017-01-13] MEDS: GENTAMICIN 0.3% OPHTH SOL 1 DROP BOTH_EYES SCH ×4 (08:46→21:44)
[2017-01-13] MEDS: ASCORBIC ACID 500 MG TAB PO SCH ×2 (08:46→21:45)
[2017-01-13] MEDS: FUROSEMIDE 40 MG TAB PO SCH ×2 (08:46→16:05)
[2017-01-13] MEDS: CEFEPIME 2 GM in SODIUM CHL 0.9% 50ML MIN-BAG+ 50 ML IVPB SCH ×2 (08:47→21:46)
[2017-01-13] MEDS: IPRATROPIUM/ALBUTEROL 3 ML VIAL INH SCH ×4 (09:05→21:47)
[2017-01-13] MEDS: [UNRECOGNIZED DRUG - OTHER] INH SCH (09:05)
[2017-01-13] MEDS: FLUTICASONE INH SCH (09:05)
[2017-01-13] MEDS: SALMETEROL INH SCH (09:05)
--- NOTE | 2017-01-13 11:41 | PN ---
SUPERVISING PHYSICIAN: Jai Alarcon MD DATE: 01/13/17 SUBJECTIVE: The patients is sitting up in his bed. He drinking coffee. He has no complaints of chest pain, nausea, vomiting. He did say that he has shortness of breath, but the dyspnea is no worse than his baseline. We did talk about smoking cessation and he has agreed that as long as he has his coffee , he is going to stop smoking. OBJECTIVE: VITAL SIGNS: Afebrile. Pulse 82. Blood pressure 138/74. Respiratory rate 24. O2 saturation has dropped as low as 88%, but at rest, he typically runs around 90% on 2 liters nasal cannula. LUNGS: Expiratory wheezing throughout, but more prominent in the apices, somewhat diminished at the bases. He is slightly tachypneic. CARDIAC: Regular rate and rhythm. ABDOMEN: Rounded, but soft. He is obese. Bowel sounds are positive. EXTREMITIES: His toes have been amputated on both feet. He does have some eschar with no drainage or fluctuance at the distal portion of his left foot. NEUROLOGIC: Awake, alert and oriented times three. LABORATORY: WBC 14.6, hemoglobin 15.7, hematocrit 49. Neutrophils 94.7%. Sodium 136, potassium 5.1, chloride 100, carbon dioxide 29, anion gap 12.1, BUN 45, creatinine 2.49. His baseline creatinine is between 2.5 and 3. Glucose has been running between 112 and 146. Calcium 8.4. Preliminary blood cultures show no growth after 24 hours. All other labs and films have been reviewed via the EMR. ASSESSMENT: 1. Acute exacerbation of chronic obstructive pulmonary disease with hypercapnia and a moderate hypoxemia. 2. Respiratory acidosis requiring noninvasive support with BiPAP secondary to #1. 3. Bilateral pneumonia, healthcare acquired, as the patient does reside at a termite control service representative care facility. 4. History of obstructive sleep apnea, presently on BiPAP at the long term. 5. Bilateral conjunctivitis, most likely viral, felt to be secondary to CPAP usage. 6. Chronic kidney disease, stage IV, showing some exacerbation initially on admission, now improved. 7. Chronic tobacco abuse. 8. Hypertension. 9. History of atrial fibrillation on chronic Coumadin therapy. He was admitted with a subtherapeutic INR. 10. History of deep venous thrombosis of the left lower extremity. 11. History of multiple episodes of pneumonia in the past in 2013 and 2014 requiring hospitalization. 12. 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 13. Obesity as noted by body mass index of 38.8. PLAN: We will continue present supportive care. His creatinine has improved quite a bit and he is actually below his baseline creatinine. I have given him an extra dose of Coumadin today and we will recheck his INR in the morning along with his routine labs. His fluids have been discontinued as he is taking p.o. well. Initially, it was thought he had BiPAP at [facility], but the respiratory department at [facility] has informed us that he is on CPAP at [facility] we will continue that on discharge. We discussed smoking cessation and he is willing to quit at this time. I have also decreased his steroids so he can be tapered to p.o. steroids on discharge. His potassium was slightly elevated this morning and I held his potassium today. He also has quite a bit of eschar on his left distal foot and he sees Dr. Watters, streetsweeper operator, and he will followup with him after discharge. Otherwise, we will need to check his potassium in the morning and we will adjust his potassium dosage as needed. Otherwise, we will continue to monitor the patient closely and follow as needed. Dr. Alarcon is the collaborating physician and available for consultation. #[id number] [facility]
[2017-01-13] MEDS ORDERED: WARFARIN SODIUM 2.5 MG TAB PO ONE (12:00)
[2017-01-13] MEDS: WARFARIN SODIUM 5 MG TAB PO SCH (12:31)
[2017-01-13] MEDS: FLUTICASONE/SALMETEROL 250/50 14 PUFF/17 GM INH INH SCH ×2 (12:35→21:47)
[2017-01-13] MEDS: MOXIFLOXACIN HCL OP SCH ×2 (14:44→21:57)
[2017-01-13] MEDS: LACTOBACILLUS 1 TAB PO SCH ×2 (14:46→21:45)
[2017-01-13] MEDS ORDERED: SODIUM CHLORIDE 0.45% 1000ML 0 ML IVS ONE (15:44)
[2017-01-13] MEDS ORDERED: METOPROLOL TARTRATE 25 MG TAB PO SCH (21:00)
[2017-01-13] MEDS: DULoxetine HCL 30 MG CAP PO SCH (21:44)
[2017-01-13] MEDS: SODIUM CHLORIDE 0.9% (FLUSH) 10 ML SYG IV SCH (21:45)
[2017-01-13] MEDS: ENOXAPARIN SODIUM 40 MG/0.4 ML SYG SUBCU SCH (21:48)
[2017-01-14] MEDS: methylPREDNISolone SODIUM SUC 40 MG/ML VIAL IV SCH (00:17)
[2017-01-14] MEDS: SODIUM CHLORIDE 0.9% (FLUSH) 10 ML SYG IV PRN (00:18)
[2017-01-14] MEDS: PANTOPRAZOLE SODIUM TAB 40 MG PO SCH (06:48)
[2017-01-14] MEDS: GABAPENTIN 300 MG CAP PO SCH ×3 (06:48→22:40)
--- NOTE | 2017-01-14 07:20 | RAD ---
EXAM: Single view chest. INDICATION: COPD. COMPARISON: Chest x-ray: 01/12/2017. FINDINGS: There is pulmonary vascular congestion. The heart is at the upper limit of normal in size. There is no pneumothorax or pleural effusion. The bones are unchanged. IMPRESSION: Pulmonary vascular congestion Electronically signed by: Monroe Aldridge MD 01/14/2017 7:18 AM [employer] Workstation: [id number]
[2017-01-14] MEDS ORDERED: predniSONE 20 MG TAB ONE (07:32)
[2017-01-14] MEDS ORDERED: SODIUM CHL 0.9% 50ML MIN-BAG+ 50 ML IVPB ONE ×2 (07:32→20:10)
[2017-01-14] MEDS ORDERED: CEFEPIME 2 GM VIAL IVPB ONE ×2 (07:33→20:11)
[2017-01-14] MEDS: METOPROLOL TARTRATE 25 MG TAB PO SCH ×2 (07:58→18:10)
[2017-01-14] MEDS: IPRATROPIUM/ALBUTEROL 3 ML VIAL INH SCH ×4 (08:08→20:46)
[2017-01-14] MEDS: FLUTICASONE/SALMETEROL 250/50 14 PUFF/17 GM INH INH SCH ×2 (08:08→20:46)
[2017-01-14] MEDS: CEFEPIME 2 GM in SODIUM CHL 0.9% 50ML MIN-BAG+ 50 ML IVPB SCH ×2 (09:11→21:25)
[2017-01-14] MEDS: GENTAMICIN 0.3% OPHTH SOL 1 DROP BOTH_EYES SCH ×4 (09:12→21:24)
[2017-01-14] MEDS: SODIUM CHLORIDE 0.9% (FLUSH) 10 ML SYG IV SCH ×2 (09:12→21:26)
[2017-01-14] MEDS: busPIRone HCL 5 MG TAB PO SCH ×3 (09:12→21:23)
[2017-01-14] MEDS: predniSONE 20 MG TAB PO SCH (09:13)
[2017-01-14] MEDS: FUROSEMIDE 40 MG TAB PO SCH ×2 (09:13→18:09)
[2017-01-14] MEDS: LACTOBACILLUS 1 TAB PO SCH ×3 (09:13→21:24)
[2017-01-14] MEDS: MOXIFLOXACIN HCL OP SCH (09:13)
[2017-01-14] MEDS: ASCORBIC ACID 500 MG TAB PO SCH ×2 (09:14→21:27)
[2017-01-14] MEDS: NYSTATIN SUSPENSION 5 ML UD MT SCH ×3 (12:06→21:26)
[2017-01-14] MEDS: WARFARIN SODIUM 5 MG TAB PO SCH (12:07)
[2017-01-14] MEDS: DULoxetine HCL 30 MG CAP PO SCH (21:23)
[2017-01-14] MEDS: ENOXAPARIN SODIUM 40 MG/0.4 ML SYG SUBCU SCH (21:25)
[2017-01-14] MEDS: IV SET AND CAP CHANGE INJ INJ SCH (21:42)
[2017-01-15] MEDS: PANTOPRAZOLE SODIUM TAB 40 MG PO SCH (06:51)
[2017-01-15] MEDS: GABAPENTIN 300 MG CAP PO SCH (06:51)
--- NOTE | 2017-01-15 07:06 | RAD ---
EXAM: Single view chest. INDICATION: COPD. COMPARISON: Chest x-ray: 01/14/2017. FINDINGS: Cardiac silhouette: At the upper limit of normal in size Erum: Mild pulmonary vascular congestion Lobar consolidation: None. Pleural effusion: None. Pneumothorax: None. Other: None. Bones: Unremarkable. Other: None. IMPRESSION: Mild pulmonary vascular congestion Electronically signed by: Monroe Aldridge MD 01/15/2017 7:04 AM [facility] Workstation: [id number]
[2017-01-15] MEDS ORDERED: SODIUM CHL 0.9% 50ML MIN-BAG+ 50 ML IVPB ONE (07:21)
[2017-01-15] MEDS ORDERED: CEFEPIME 2 GM VIAL IVPB ONE (07:22)
[2017-01-15] MEDS: METOPROLOL TARTRATE 25 MG TAB PO SCH (07:47)
[2017-01-15] MEDS: FLUTICASONE/SALMETEROL 250/50 14 PUFF/17 GM INH INH SCH (08:16)
[2017-01-15] MEDS: IPRATROPIUM/ALBUTEROL 3 ML VIAL INH SCH ×2 (08:16→11:54)
[2017-01-15] MEDS: predniSONE 20 MG TAB PO SCH (08:55)
[2017-01-15] MEDS: busPIRone HCL 5 MG TAB PO SCH (08:55)
[2017-01-15] MEDS: ASCORBIC ACID 500 MG TAB PO SCH (08:55)
[2017-01-15] MEDS: LACTOBACILLUS 1 TAB PO SCH (08:56)
[2017-01-15] MEDS: NYSTATIN SUSPENSION 5 ML UD MT SCH ×2 (08:56→13:06)
[2017-01-15] MEDS: GENTAMICIN 0.3% OPHTH SOL 1 DROP BOTH_EYES SCH ×2 (08:56→12:24)
[2017-01-15] MEDS: FUROSEMIDE 40 MG TAB PO SCH (08:56)
[2017-01-15] MEDS: SODIUM CHLORIDE 0.9% (FLUSH) 10 ML SYG IV SCH (08:57)
[2017-01-15] MEDS: CEFEPIME 2 GM in SODIUM CHL 0.9% 50ML MIN-BAG+ 50 ML IVPB SCH (08:58)
--- NOTE | 2017-01-15 09:37 | PN ---
SUPERVISING PHYSICIAN: Jai Alarcon MD DATE: 01/14/17 SUBJECTIVE: The patient is doing much better than previous days, although he still requires ongoing aggressive pulmonary hygiene and BiPAP intermittently. He has had no chest pain, nausea, vomiting. He does continue to have some shortness of breath. Again, discussion about smoking cessation has taken place. . OBJECTIVE: VITAL SIGNS: Afebrile, temperature 98.2. Pulse 73. Blood pressure 131/72. Respiratory rate 21. saturation 93% on nasal cannula at rest on 4 liters. Weight 123.1 kg.. CHEST: Lung sounds remain diminished throughout but no rhonchi, rales, or wheezes noted. CARDIAC: Regular rate and rhythm. ABDOMEN: Obese, soft, non-tender with positive bowel sounds. EXTREMITIES: Toes [id number] on both feet with eschar noted on the left foot but no obvious drainage or fluctuation noted to the distal portion of the left foot. There is no obvious cyanosis, clubbing, or edema.. NEUROLOGIC: Awake, alert and oriented times three. LABORATORY: White count down to 12,800 with hemoglobin of 16.2, hematocrit 50.5 with platelet count 173,000. Differential continues to show a left shift. PT is up to 22.3 with INR 1.99. Chemistries show normal electrolytes with potassium 4.6, BUN 53, creatinine 2.56, calcium 8.4, magnesium 2.1 yesterday. MICROBIOLOGY: Sputum culture preliminary showed high growth of yeast. Blood cultures remain negative after 3 days. RADIOLOGY: Pulmonary vascular congestion is noted per radiology interpretation. ASSESSMENT: 1. Acute exacerbation of chronic obstructive pulmonary disease with hypercapnia and moderate hypoxemia requiring BiPAP assistance. 2. Respiratory acidosis requiring noninvasive support with BiPAP secondary to #1, showing improvement after initiation of parenteral antibiotics and aggressive pulmonary hygiene. 3. Bilateral pneumonia, healthcare acquired, as the patient does reside at a alf care facility on parenteral antibiotics to include Ceftin. 4. History of obstructive sleep apnea utilizing BiPAP at the senior living at night. 5. Bilateral conjunctivitis, most likely viral felt to be secondary to CPAP usage with the patient having recently had cataract removals. 6. Chronic kidney disease, stage IV, showing exacerbation admission but improving slightly but continues to be elevated secondary to negative fluid balance with loop diuretics. 7. Chronic tobacco abuse. 8. Hypertension. 9. History of atrial fibrillation on chronic Coumadin therapy with continues subtherapeutic INR showing improvement with continuation of Coumadin. 10. History of deep venous thrombosis of the left lower extremity. 11. History of multiple episodes of pneumonia in the past in 2013 and 2014 requiring hospitalization. 12. 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 13. Obesity as noted by body mass index of 38.8. PLAN: We will continue to utilize aggressive pulmonary hygiene with the chest physiotherapy as this is showing significant improvement in his respiratory effort. He is able to remain on BiPAP only at night and tolerating nasal cannula during the day. He will be on CPAP at discharge, therefore an additional night of CPAP only trialed to see how well he will do once discharge is warranted. His steroids have been tapered down to p.o. prednisone. Will anticipate discharge tomorrow if he does well on CPAP tonight with continuation of antibiotic therapy once discharged. Until discharge, we will continue to monitor closely and treat appropriately #[id number] [facility]
[2017-01-15 10:33] VITALS: O2SAT 92
[2017-01-15] MEDS: WARFARIN SODIUM 5 MG TAB PO SCH (12:23)
[2017-01-15 12:39] VITALS: BP 149/82; TEMP 98.4
== END 2017-01-15 13:46 | DRG 190 ==
LOC: ER 13:09 → MS 20:03 → OBSVTOIN 20:03
PROVIDERS: ADMIT Nurse Practitioner Family; ATTEND Nurse Practitioner Family
DX: J44.0 Chronic obstructive pulmonary disease with (acute) lower respiratory infection (principal); J18.9 Pneumonia, unspecified organism; E87.2 Acidosis; N18.4 Chronic kidney disease, stage 4 (severe); J44.1 Chronic obstructive pulmonary disease with (acute) exacerbation; R09.02 Hypoxemia; G47.33 Obstructive sleep apnea (adult) (pediatric); B30.9 Viral conjunctivitis, unspecified; T88.8XXA Other specified complications of surgical and medical care, not elsewhere classified, initial encounter; F17.210 Nicotine dependence, cigarettes, uncomplicated; I12.9 Hypertensive chronic kidney disease with stage 1 through stage 4 chronic kidney disease, or unspecified chronic kidney disease; E86.0 Dehydration; Z79.01 Long term (current) use of anticoagulants; E66.9 Obesity, unspecified; Y95 Nosocomial condition; Z86.718 Personal history of other venous thrombosis and embolism; Z68.38 Body mass index [BMI] 38.0-38.9, adult

== ENCOUNTER 2017-01-16 22:27 | Emergency (ER) | payer MEDICARE, MEDICAID ==
--- NOTE | 2017-01-16 23:16 | ED.PDOC ---
History of Present Illness - General Chief Complaint: Respiratory Problem Stated Complaint: shortness of breath Time Seen by Provider: 01/16/17 23:02 Source: patient Exam Limitations: no limitations - History of Present Illness Initial Comments: Omid Porras 71 y/o male recently discharged from this hospital for copd exacerbation was placed on bipap during his hospitalization [id number] stated that he is still SOB since he was discharge from the hospital.Has history of copd,chronic respiratory failure recently placed on home oxygen. Severity: moderate Worsening Factors: other - copd Associated Symptoms: shortness of breath, other - see hpi Allergies/Adverse Reactions: Allergies Celecoxib [From Celebrex] Allergy (Verified 01/11/17 13:46) Metformin Allergy (Verified 01/11/17 13:46) NSAIDs Allergy (Verified 09/26/15 14:55) Home Medications: Ambulatory Orders Ascorbic Acid [Vitamin C] 500 mg PO BID 02/17/14 Furosemide [Lasix] 40 mg PO BID 02/17/14 HYDROcodone 7.5MG/APAP 325MG [[place] 7.5/325] 1 tab PO Q4H PRN 02/17/14 Metoprolol Tartrate 25 mg PO BID 02/17/14 Potassium Chloride [K-Tab] 40 meq PO DAILY 10/05/14 Albuterol Inhaler [Ventolin Hfa Inhaler] 2 puff INH Q6H PRN 09/26/15 Buspirone HCl 5 mg PO TID 09/26/15 Calcium Carbonate-Cholecalcife [Calcium 600+D3 600-400 mg-Unit] 1 tab PO DAILY 09/26/15 Ferrous Sulfate [Iron] 325 mg PO DAILY 09/26/15 Fluticasone-Salmeterol [Advair Hfa 115-21 Mcg/Act] 2 inh IN BID 09/26/15 Nitroglycerin 0.4 mg Tab [Nitrostat] 1 ea SL PRN 09/26/15 Warfarin Sodium [Coumadin] 4 mg PO MOTUWETHFR 09/26/15 Warfarin Sodium [Coumadin] 6 mg PO SUSA 09/26/15 predniSONE 10 mg PO QAM 09/26/15 Balsam Ivette-Rill[place] Oil [Venelex] 1 oin EX DAILY 01/11/17 Duloxetine HCl [Cymbalta] 60 mg PO BEDTIME 01/11/17 Gabapentin [Neurontin] 300 mg PO Q8H 01/11/17 Ipratropium/Albuterol [Duoneb] 3 ml NEB QID PRN 01/11/17 Lactobacillus [Acidophilus] 2 cap PO TID 01/11/17 Loperamide HCl 2 mg PO PRN 01/11/17 Urea 40 % EX DAILY 01/11/17 Albuterol Sulfate Nebs [Proventil Nebs] 2.5 mg NEB PRN PRN vial 01/15/17 Cefdinir [Omnicef] 300 mg PO BID #20 cap 01/15/17 Gentamicin 0.3% Ophth Ana [Garamycin Opthalmic Solution] 2 drop BOTH_EYES QID drops 01/15/17 Nicotine Patch 14 mg [Habitrol Patch 14mg] 1 ea TD Q24H PRN #10 patch 01/15/17 Nystatin Suspension 5 ml MT QID ud 01/15/17 predniSONE 40 mg PO DAILY 5 Days tab 01/15/17 Review of Systems - Review of Systems Constitutional: States: no symptoms reported EENTM: States: no symptoms reported Respiratory: States: see HPI Cardiology: States: see HPI Gastrointestinal/Abdominal: States: no symptoms reported Genitourinary: States: no symptoms reported Musculoskeletal: States: no symptoms reported Skin: States: no symptoms reported Past Medical History (General) - Patient Medical History Hx Seizures: No Hx Stroke: No Hx Dementia: No Hx Asthma: No Hx of COPD: Yes Hx Cardiac Disorders: Yes - A-fib, heart failure Hx Congestive Heart Failure: Yes - Unspecified per history Hx Pacemaker: No Hx Hypertension: Yes Hx Thyroid Disease: No Hx Diabetes: No Hx Gastroesophageal Reflux: Yes Hx Renal Disease: No Hx Cancer: No Hx of HIV: No Hx Hepatitis C: No Hx MRSA: No MRSA Source:: Unknown Surgical History: cholecystectomy, other - cataracts,toe amputations both feet- frostbite - Vaccination History Hx Tetanus, Diphtheria Vaccination: Yes Hx Influenza Vaccination: Yes - 2013 Hx Pneumococcal Vaccination: Yes - 2013 - Social History Hx Tobacco Use: Yes - "quit 6 days ago" Hx Chewing Tobacco Use: No - does not chew anymore Hx Alcohol Use: No Hx Substance Use: No Hx Substance Use Treatment: No Hx Depression: Yes Hx Physical Abuse: No Hx Emotional Abuse: No Hx Suspected Abuse: No - Activities of Daily Living Jail/Assisted Living (if applicable):: [facility] - Female History Patient : No Family Medical History - Family History Mother Family History: No Known Name: mom Living Status: Cause of : cancer-brain Hx Family Asthma: No Hx Family Congestive Heart Failure: No Hx Family Hypertension: No Hx Family Stroke: No Hx Cardiac Disease: No Hx Family Diabetes: No Hx Family Cancer: Yes - mom-brain Father Living Status: Age at (years of age): 101 Cause of : old age Physical Exam - Physical Exam General Appearance: Alert, Anxious, No apparent distress Eye Exam: bilateral normal - with corrective glasses Ears, Nose, Throat: hearing grossly normal, normal ENT inspection, normal pharynx Neck: non-tender, supple, normal inspection Respiratory: no respiratory distress, decreased breath sounds Cardiovascular/Chest: no murmur, tachycardia, irregularly irregular Peripheral Pulses: radial,right: 1+, radial,left: 1+ Gastrointestinal/Abdominal: non tender, soft, no organomegaly Back Exam: no CVA tenderness, no vertebral tenderness Extremity: no calf tenderness, pedal edema - 2+, other - toe amputations Neurologic: alert, oriented x 3 Progress - Progress Progress: 01/17/17 03:01 Last Vital Signs Temp 99.4 F 01/16/17 23:00 Pulse 70 01/17/17 00:00 Resp 22 01/17/17 00:00 BP 140/66 01/17/17 00:00 Pulse Ox 93 L 01/17/17 00:00 Laboratory Tests 01/16/17 01/16/17 01/17/17 23:25 23:28 01:30 WBC 11.1 H RBC 6.04 Hgb 17.5 Hct 53.8 H MCV 89.0 MCH 28.9 MCHC 32.5 L RDW 14.9 H Plt Count 147 MPV 9.4 Absolute Neuts (auto) 9.00 H Absolute Lymphs (auto) 0.80 L Absolute Monos (auto) 1.20 H Absolute Eos (auto) 0.10 Absolute Basos (auto) 0.00 Neutrophils % 80.9 H Lymphocytes % 7.3 L Monocytes % 10.9 H Eosinophils % 0.6 L Basophils % 0.3 PT 39.8 H* INR 3.570 H* PTT (SP) 47.8 H Sodium 137 Potassium 4.3 Chloride 94 L Carbon Dioxide 35 H Anion Gap 12.3 BUN 40 H Creatinine 2.08 H BUN/Creatinine Ratio 19.2 Random Glucose 111 H Serum Osmolality 284.3 Calcium 8.5 Magnesium 2.2 Total Bilirubin 0.4 Direct Bilirubin 0.1 Indirect Bilirubin 0.3 AST 35 ALT 58 Alkaline Phosphatase 61 Creatine Kinase 159 CK-MB (CK-2) 3.1 CK-MB (CK-2) % Not Reportable Troponin I 0.06 H 0.07 H* B-Natriuretic Peptide 107.0 H Serum Total Protein 6.5 Albumin 3.5 Urine Color Yellow Urine Appearance Clear Urine pH 6.5 Ur Specific [place] 1.015 Urine Protein 30 Urine Glucose (UA) Negative Urine Ketones Negative Urine Blood Moderate H Urine Nitrite Negative Urine Bilirubin Negative Urine Urobilinogen 0.2 Ur Leukocyte Esterase Negative Urine RBC 1-3 Urine WBC 0 Ur Epithelial Cells 0-1 Urine Bacteria Rare - EKG/XRAY/CT EKG: Atrial, Fibrillation Comments: HR 91 irbb,pvc lae XRAY: chest - mild atelectasis Departure - Departure Clinical Impression: Acute and chronic respiratory failure with hypercapnia, NSTEMI (non-ST elevation myocardial infarction), Non compliance with medical treatment, COPD exacerbation, Renal insufficiency Time of Disposition: 03:23 Disposition: Transfer to Hospital Condition: Fair Departure Forms: Patient Portal Self Enrollment Referrals: CARLOS SALDANA [Primary Care Provider] - 1-2 Weeks Home Medications: Ambulatory Orders Ascorbic Acid [Vitamin C] 500 mg PO BID 02/17/14 Furosemide [Lasix] 40 mg PO BID 02/17/14 HYDROcodone 7.5MG/APAP 325MG [[place] 7.5/325] 1 tab PO Q4H PRN 02/17/14 Metoprolol Tartrate 25 mg PO BID 02/17/14 Potassium Chloride [K-Tab] 40 meq PO DAILY 10/05/14 Albuterol Inhaler [Ventolin Hfa Inhaler] 2 puff INH Q6H PRN 09/26/15 Buspirone HCl 5 mg PO TID 09/26/15 Calcium Carbonate-Cholecalcife [Calcium 600+D3 600-400 mg-Unit] 1 tab PO DAILY 09/26/15 Ferrous Sulfate [Iron] 325 mg PO DAILY 09/26/15 Fluticasone-Salmeterol [Advair Hfa 115-21 Mcg/Act] 2 inh IN BID 09/26/15 Nitroglycerin 0.4 mg Tab [Nitrostat] 1 ea SL PRN 09/26/15 Warfarin Sodium [Coumadin] 4 mg PO MOTUWETHFR 09/26/15 Warfarin Sodium [Coumadin] 6 mg PO SUSA 09/26/15 predniSONE 10 mg PO QAM 09/26/15 Balsam Ivette-Rill[place] Oil [Venelex] 1 oin EX DAILY 01/11/17 Duloxetine HCl [Cymbalta] 60 mg PO BEDTIME 01/11/17 Gabapentin [Neurontin] 300 mg PO Q8H 01/11/17 Ipratropium/Albuterol [Duoneb] 3 ml NEB QID PRN 01/11/17 Lactobacillus [Acidophilus] 2 cap PO TID 01/11/17 Loperamide HCl 2 mg PO PRN 01/11/17 Urea 40 % EX DAILY 01/11/17 Albuterol Sulfate Nebs [Proventil Nebs] 2.5 mg NEB PRN PRN vial 01/15/17 Cefdinir [Omnicef] 300 mg PO BID #20 cap 01/15/17 Gentamicin 0.3% Ophth Ana [Garamycin Opthalmic Solution] 2 drop BOTH_EYES QID drops 01/15/17 Nicotine Patch 14 mg [Habitrol Patch 14mg] 1 ea TD Q24H PRN #10 patch 01/15/17 Nystatin Suspension 5 ml MT QID ud 01/15/17 predniSONE 40 mg PO DAILY 5 Days tab 01/15/17 Transfer to Outside Facility - Transfer Information Accepting Provider:: D/W DR. Reese Mast Md Accepting Facility: [facility] Reason for Transfer: required specialist not available
[2017-01-16] MEDS ORDERED: IPRATROPIUM/ALBUTEROL 3 ML VIAL NEB ONE (23:21)
[2017-01-16] MEDS ORDERED: BUMETANIDE 0.25 MG/ML VIAL IV ONE (23:24)
--- NOTE | 2017-01-16 23:54 | RAD ---
EXAM DESCRIPTION: Chest,1 View CLINICAL HISTORY: 71 years Male pain COMPARISON: 01/15/2017. FINDINGS: Stable cardiomediastinal silhouette. Mild atelectasis or infiltrate at the lung bases greater on the right. No definite pleural effusions. No pneumothorax. IMPRESSION: Mild atelectasis or infiltrate at the lung bases greater on the right. Electronically signed by: Antoni Huynh MD 01/16/2017 11:53 PM LAY UP OPERATOR
[2017-01-17 00:25] VITALS: O2SAT 93
[2017-01-17] MEDS ORDERED: PROMETHAZINE HCL INJ 25 MG/ML VIAL IM ONE (02:44)
[2017-01-17 04:31] VITALS: BP 171/59; TEMP 99.2
== END 2017-01-17 03:50 | disposition short-term general hospital (02) ==
LOC: ER 22:27
DX: I21.4 Non-ST elevation (NSTEMI) myocardial infarction (principal); J96.22 Acute and chronic respiratory failure with hypercapnia; J44.1 Chronic obstructive pulmonary disease with (acute) exacerbation; N28.9 Disorder of kidney and ureter, unspecified; Z91.19 Patient's noncompliance with other medical treatment and regimen; I48.91 Unspecified atrial fibrillation; I11.0 Hypertensive heart disease with heart failure; I50.9 Heart failure, unspecified; Z87.891 Personal history of nicotine dependence; Z79.899 Other long term (current) drug therapy; Z79.01 Long term (current) use of anticoagulants
CPT/HCPCS: 36415; 71010; 80048; 80076; 81001; 82550; 82553; 83880; 84484; 85025; 85610; 85730; 93005; 94640; J3490; J7620

== ENCOUNTER 2017-01-31 15:51 | Emergency (ER) | payer MEDICARE, MEDICAID ==
--- NOTE | 2017-01-31 16:04 | ED.PDOC ---
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 IN 2013 Timing/Duration: days - 2 DAYS OF INTERMITTANT ANTERIOR CHEST PAIN WITH SOME RADIATION TOWARD THE NECK GOT SOME RELEIF FROM NITRO GIVEN BY EMT, changing over time Allergies/Adverse Reactions: Allergies Celecoxib [From Celebrex] Allergy (Verified 01/11/17 13:46) Metformin Allergy (Verified 01/11/17 13:46) NSAIDs Allergy (Verified 09/26/15 14:55) Home Medications: Ambulatory Orders Ascorbic Acid [Vitamin C] 500 mg PO BID 02/17/14 Furosemide [Lasix] 40 mg PO BID 02/17/14 HYDROcodone 7.5MG/APAP 325MG [[place] 7.5/325] 1 tab PO Q4H PRN 02/17/14 Metoprolol Tartrate 25 mg PO BID 02/17/14 Potassium Chloride [K-Tab] 40 meq PO DAILY 10/05/14 Albuterol Inhaler [Ventolin Hfa Inhaler] 2 puff INH Q6H PRN 09/26/15 Buspirone HCl 5 mg PO TID 09/26/15 Calcium Carbonate-Cholecalcife [Calcium 600+D3 600-400 mg-Unit] 1 tab PO DAILY 09/26/15 Ferrous Sulfate [Iron] 325 mg PO DAILY 09/26/15 Fluticasone-Salmeterol [Advair Hfa 115-21 Mcg/Act] 2 inh IN BID 09/26/15 Nitroglycerin 0.4 mg Tab [Nitrostat] 1 ea SL PRN 09/26/15 Warfarin Sodium [Coumadin] 4 mg PO MOTUWETHFR 09/26/15 Warfarin Sodium [Coumadin] 6 mg PO SUSA 09/26/15 predniSONE 10 mg PO QAM 09/26/15 Balsam Ivette-Hammon Oil [Venelex] 1 oin EX DAILY 01/11/17 Duloxetine HCl [Cymbalta] 60 mg PO BEDTIME 01/11/17 Gabapentin [Neurontin] 300 mg PO Q8H 01/11/17 Ipratropium/Albuterol [Duoneb] 3 ml NEB QID PRN 01/11/17 Lactobacillus [Acidophilus] 2 cap PO TID 01/11/17 Loperamide HCl 2 mg PO PRN 01/11/17 Urea 40 % EX DAILY 01/11/17 Albuterol Sulfate Nebs [Proventil Nebs] 2.5 mg NEB PRN PRN vial 01/15/17 Cefdinir [Omnicef] 300 mg PO BID #20 cap 01/15/17 Gentamicin 0.3% Ophth Ana [Garamycin Opthalmic Solution] 2 drop BOTH_EYES QID drops 01/15/17 Nicotine Patch 14 mg [Habitrol Patch 14mg] 1 ea TD Q24H PRN #10 patch 01/15/17 Nystatin Suspension 5 ml MT QID ud 01/15/17 predniSONE 40 mg PO DAILY 5 Days tab 01/15/17 Past Medical History (General) - Patient Medical History Hx Seizures: No Hx Stroke: No Hx Dementia: No Hx Asthma: No Hx of COPD: Yes Hx Cardiac Disorders: Yes - A-fib, heart failure Hx Congestive Heart Failure: Yes - Unspecified per history Hx Pacemaker: No Hx Hypertension: Yes Hx Thyroid Disease: No Hx Diabetes: No Hx Gastroesophageal Reflux: Yes Hx Renal Disease: No Hx Cancer: No Hx of HIV: No Hx Hepatitis C: No Hx MRSA: No MRSA Source:: Unknown - Vaccination History Hx Tetanus, Diphtheria Vaccination: Yes Hx Influenza Vaccination: Yes - 2013 Hx Pneumococcal Vaccination: Yes - 2013 - Social History Hx Tobacco Use: Yes - "quit 6 days ago" Hx Chewing Tobacco Use: No - does not chew anymore Hx Alcohol Use: No Hx Substance Use: No Hx Substance Use Treatment: No Hx Depression: Yes Hx Physical Abuse: No Hx Emotional Abuse: No Hx Suspected Abuse: No - Female History Patient : No Family Medical History - Family History Father Living Status: Age at (years of age): 101 Cause of : old age Mother Family History: No Known Name: mom Age (years): 56 Living Status: Cause of : cancer-brain Hx Family Asthma: No Hx Family Congestive Heart Failure: No Hx Family Hypertension: No Hx Family Stroke: No Hx Cardiac Disease: No Hx Family Diabetes: No Hx Family Cancer: Yes - mom-brain Physical Exam - Physical Exam General Appearance: Obvious distress Eyes, Ears, Nose, Throat Exam: normal ENT inspection, TMs normal Neck: non-tender, full range of motion, supple Respiratory: chest non-tender, rhonchi Cardiovascular/Chest: regular rate, rhythm, no edema, no gallop, no JVD, no murmur Peripheral Pulses: radial,right: 1+, radial,left: 1+, femoral,right: 1+, femoral ,left: 1+ Gastrointestinal/Abdominal: normal bowel sounds, non tender, soft - BRUISES NOTED IN THE RIGHT FLANK Extremity: normal range of motion, non-tender - BRUISES NOTED IN THE FLANK COUMADIN TOXICITY Progress - Results/Orders Results/Orders: RESULTS REVIEWED LEUCOCYTOSIS INFECTION VS STERIODS TROP NEG EKG NEG VS HYPOXIA BP LOW NO FEVER CHEST X RAY PATCHY INFILTRATE PT IS GETTING IV FLUIDS IV CEFEPIME IV STEROIDS DUO NEB WILL START VASOPRESSOR SUPPORT IF FLUID FAIL TO MAINTAIN PERFUSION PRESSURE EKG NSR RIGHT AXIS DEVIATION POOR R WAVE PROGRESSION IN ANTEROSEPTAL LEADS NO ACUTE INJURY OR ISCHEMIA NOTED CHEST X RAY LLL PATCHY CONSOLIDATION ALSO SOME IN THE RIGHT SIDE WELL PROBLEM LIST NON CARDIAC CHEST PAIN COUMADIN TOXICITY ACUTE ON CHRONIC KIDNEY INJURY HISTORY OF ATRIAL FIBRILLATION MULTILOBAR PNEUMONIA COPD HYPOXIA HYPOTENSION 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 Laboratory Tests 01/31/17 01/31/17 01/31/17 16:43 16:43 16:43 WBC 15.2 H RBC 4.65 L Hgb 13.1 L Hct 40.5 L MCV 87.2 MCH 28.1 MCHC 32.2 L RDW 15.0 H Plt Count 209 MPV 8.8 Absolute Neuts (auto) 12.20 H Absolute Lymphs (auto) 1.60 Absolute Monos (auto) 1.10 H Absolute Eos (auto) 0.10 Absolute Basos (auto) 0.20 H Neutrophils % 80.3 H Lymphocytes % 10.4 L Monocytes % 7.2 Eosinophils % 0.9 L Basophils % 1.2 PT 36.1 H* INR 3.230 PTT (SP) 42.5 H Sodium 142 Potassium 4.8 Chloride 105 Carbon Dioxide 27 Anion Gap 14.8 BUN 104 H* Creatinine 3.74 H BUN/Creatinine Ratio 27.8 H Random Glucose 99 Serum Osmolality 315.8 H Lactic Acid Calcium 8.6 Total Bilirubin 1.2 H AST 23 ALT 35 Alkaline Phosphatase 48 Troponin I Serum Total Protein 6.4 Albumin 2.9 L Globulin 3.5 Albumin/Globulin Ratio 0.8 L 01/31/17 01/31/17 16:44 17:31 WBC RBC Hgb Hct MCV MCH MCHC RDW Plt Count MPV Absolute Neuts (auto) Absolute Lymphs (auto) Absolute Monos (auto) Absolute Eos (auto) Absolute Basos (auto) Neutrophils % Lymphocytes % Monocytes % Eosinophils % Basophils % PT INR PTT (SP) Sodium Potassium Chloride Carbon Dioxide Anion Gap BUN Creatinine BUN/Creatinine Ratio Random Glucose Serum Osmolality Lactic Acid 0.8 Calcium Total Bilirubin AST ALT Alkaline Phosphatase Troponin I 0.06 H Serum Total Protein Albumin Globulin Albumin/Globulin Ratio Departure - Departure Clinical Impression: Chest pain, Pneumonia, Acute kidney failure Time of Disposition: 17:55 - DISCUSSED WITH DR HOGAN AT [facility] Disposition: Transfer to Hospital Departure Forms: ED Discharge - Pt. Copy, Patient Portal Self Enrollment Instructions: DI for Pneumonia -- Adult, DI for Chest Pain Referrals: CARLOS SALDANA [Primary Care Provider] - 1-2 Weeks Home Medications: Ambulatory Orders Ascorbic Acid [Vitamin C] 500 mg PO BID 02/17/14 Furosemide [Lasix] 40 mg PO BID 02/17/14 HYDROcodone 7.5MG/APAP 325MG [[place] 7.5/325] 1 tab PO Q4H PRN 02/17/14 Metoprolol Tartrate 25 mg PO BID 02/17/14 Potassium Chloride [K-Tab] 40 meq PO DAILY 10/05/14 Albuterol Inhaler [Ventolin Hfa Inhaler] 2 puff INH Q6H PRN 09/26/15 Buspirone HCl 5 mg PO TID 09/26/15 Calcium Carbonate-Cholecalcife [Calcium 600+D3 600-400 mg-Unit] 1 tab PO DAILY 09/26/15 Ferrous Sulfate [Iron] 325 mg PO DAILY 09/26/15 Fluticasone-Salmeterol [Advair Hfa 115-21 Mcg/Act] 2 inh IN BID 09/26/15 Nitroglycerin 0.4 mg Tab [Nitrostat] 1 ea SL PRN 09/26/15 Warfarin Sodium [Coumadin] 4 mg PO MOTUWETHFR 09/26/15 Warfarin Sodium [Coumadin] 6 mg PO SUSA 09/26/15 predniSONE 10 mg PO QAM 09/26/15 Balsam Ivette-Hammon Oil [Venelex] 1 oin EX DAILY 01/11/17 Duloxetine HCl [Cymbalta] 60 mg PO BEDTIME 01/11/17 Gabapentin [Neurontin] 300 mg PO Q8H 01/11/17 Ipratropium/Albuterol [Duoneb] 3 ml NEB QID PRN 01/11/17 Lactobacillus [Acidophilus] 2 cap PO TID 01/11/17 Loperamide HCl 2 mg PO PRN 01/11/17 Urea 40 % EX DAILY 01/11/17 Albuterol Sulfate Nebs [Proventil Nebs] 2.5 mg NEB PRN PRN vial 01/15/17 Cefdinir [Omnicef] 300 mg PO BID #20 cap 01/15/17 Gentamicin 0.3% Ophth Ana [Garamycin Opthalmic Solution] 2 drop BOTH_EYES QID drops 01/15/17 Nicotine Patch 14 mg [Habitrol Patch 14mg] 1 ea TD Q24H PRN #10 patch 01/15/17 Nystatin Suspension 5 ml MT QID ud 01/15/17 predniSONE 40 mg PO DAILY 5 Days tab 01/15/17
[2017-01-31] MEDS ORDERED: MORPHINE SULFATE INJ 10 MG/ML VIAL ONE (16:11)
[2017-01-31] MEDS ORDERED: MORPHINE SULFATE INJ 10 MG/ML VIAL IV ONE (16:14)
[2017-01-31] MEDS ORDERED: IPRATROPIUM/ALBUTEROL 3 ML VIAL NEB ONE ×3 (16:14→16:21)
--- NOTE | 2017-01-31 16:55 | RAD ---
EXAM DESCRIPTION: Chest,1 View CLINICAL HISTORY: 71 years, Male, CP COMPARISON: Chest x-ray dated 01/16/2017 FINDINGS: A single frontal portable chest radiograph was performed. The lungs are well expanded with airspace opacities in both lower lungs extending to the left mid lung. Airspace opacity in the left midlung has slightly increased since the prior study. The costophrenic sulci are sharp. The cardiac silhouette is upper normal in caliber. The hilar regions, trachea, soft tissues and bony structures are unremarkable. IMPRESSION: Multifocal pneumonia versus aspiration is suspected, slightly worsening in the left midlung the prior study. Electronically signed by: Taylor Michaud MD 01/31/2017 4:53 PM TRAFFIC SUPERVISOR
[2017-01-31] MEDS ORDERED: CEFEPIME 1 GM in SODIUM CHLORIDE 0.9% 50ML 50 ML IVPB ONE (17:21)
[2017-01-31] MEDS ORDERED: SODIUM CHLORIDE 0.9% 50ML 50 ML ONE (17:34)
[2017-01-31] MEDS ORDERED: CEFEPIME 2 GM VIAL IVPB ONE (17:34)
[2017-01-31] MEDS ORDERED: SODIUM CHLORIDE 0.9% 1000ML 1,000 ML IVS ONE (17:46)
[2017-01-31 18:19] VITALS: TEMP 98.4; O2SAT 90
[2017-01-31 19:05] VITALS: BP 135/73
== END 2017-01-31 18:45 | disposition short-term general hospital (02) ==
LOC: ER 15:51
DX: J18.9 Pneumonia, unspecified organism (principal); N17.9 Acute kidney failure, unspecified; I11.0 Hypertensive heart disease with heart failure; I50.9 Heart failure, unspecified; I48.91 Unspecified atrial fibrillation; K21.9 Gastro-esophageal reflux disease without esophagitis; Z79.01 Long term (current) use of anticoagulants; Z79.899 Other long term (current) drug therapy; Z88.8 Allergy status to other drugs, medicaments and biological substances
CPT/HCPCS: 36416; 71010; 80053; 83605; 84484; 85025; 85610; 85730; 87040; 93005; 94640; A4216; J0692; J2270; J7030; J7620

== ENCOUNTER 2017-02-11 13:12 | Observation (INO) | payer MEDICARE, MEDICAID ==
[2017-02-11] MEDS ORDERED: SODIUM CHLORIDE 0.9% 500ML 500 ML IVS ONE (13:26)
--- NOTE | 2017-02-11 13:50 | RAD ---
Study: Single Frontal View of the Chest. Indication:chest pain SOB Comparison: January 31, 2017. Impression: Cardiomegaly with slightly improved mild interstitial edema. Patchy consolidative changes in the left midlung and right lung base are slightly improved but not resolved. Continued follow-up recommended. Tiny left pleural effusion suspected. No pneumothorax. Electronically signed by: Shalom Loya MD 02/11/2017 1:49 PM SENIOR SALESFORCE DEVELOPER
--- NOTE | 2017-02-11 15:44 | ED.PDOC ---
History of Present Illness - General Chief Complaint: Cardiovascular Problem Stated Complaint: chest pain and sob Time Seen by Provider: 02/11/17 13:25 Source: patient, RN notes reviewed, Vital Signs reviewed, EMS notes reviewed Additional Information: Recently discharged from [facility] days ago to [facility]. Pt with multiple chronic medical problems and functional decline in general. He states today he felt worse compared to discharge in terms of chest pain, shortness of breath, and decreased functional capacity/weakness. - History of Present Illness Timing/Duration: 24 hours Severity: moderate Improving Factors: nothing Worsening Factors: movement Associated Symptoms: chest pain, shortness of breath, weakness Allergies/Adverse Reactions: Allergies Celecoxib [From Celebrex] Allergy (Verified 02/11/17 13:48) Metformin Allergy (Verified 02/11/17 13:48) NSAIDs Allergy (Verified 02/11/17 13:48) Home Medications: Ambulatory Orders Ascorbic Acid [Vitamin C] 500 mg PO BID 02/17/14 Furosemide [Lasix] 40 mg PO BID 02/17/14 HYDROcodone 7.5MG/APAP 325MG [[place] 7.5/325] 1 tab PO Q4H PRN 02/17/14 Metoprolol Tartrate 25 mg PO BID 02/17/14 Potassium Chloride [K-Tab] 40 meq PO DAILY 10/05/14 Albuterol Inhaler [Ventolin Hfa Inhaler] 2 puff INH Q6H PRN 09/26/15 Buspirone HCl 5 mg PO TID 09/26/15 Calcium Carbonate-Cholecalcife [Calcium 600+D3 600-400 mg-Unit] 1 tab PO DAILY 09/26/15 Ferrous Sulfate [Iron] 325 mg PO DAILY 09/26/15 Fluticasone-Salmeterol [Advair Hfa 115-21 Mcg/Act] 2 inh IN BID 09/26/15 Nitroglycerin 0.4 mg Tab [Nitrostat] 1 ea SL PRN 09/26/15 Warfarin Sodium [Coumadin] 4 mg PO MOTUWETHFR 09/26/15 Warfarin Sodium [Coumadin] 6 mg PO SUSA 09/26/15 predniSONE 10 mg PO QAM 09/26/15 Balsam [place] Oil [Venelex] 1 oin EX DAILY 01/11/17 Duloxetine HCl [Cymbalta] 60 mg PO BEDTIME 01/11/17 Gabapentin [Neurontin] 300 mg PO Q8H 01/11/17 Ipratropium/Albuterol [Duoneb] 3 ml NEB QID PRN 01/11/17 Lactobacillus [Acidophilus] 2 cap PO TID 01/11/17 Loperamide HCl 2 mg PO PRN 01/11/17 Urea 40 % EX DAILY 01/11/17 Albuterol Sulfate Nebs [Proventil Nebs] 2.5 mg NEB PRN PRN vial 01/15/17 Cefdinir [Omnicef] 300 mg PO BID #20 cap 01/15/17 Gentamicin 0.3% Ophth Ana [Garamycin Opthalmic Solution] 2 drop BOTH_EYES QID drops 01/15/17 Nicotine Patch 14 mg [Habitrol Patch 14mg] 1 ea TD Q24H PRN #10 patch 01/15/17 Nystatin Suspension 5 ml MT QID ud 01/15/17 predniSONE 40 mg PO DAILY 5 Days tab 01/15/17 Review of Systems - Review of Systems Constitutional: States: weakness EENTM: States: no symptoms reported Respiratory: States: see HPI, short of breath Cardiology: States: see HPI, chest pain Gastrointestinal/Abdominal: States: no symptoms reported Genitourinary: States: no symptoms reported Musculoskeletal: States: see HPI Skin: States: no symptoms reported Neurological: States: no symptoms reported Endocrine: States: no symptoms reported Hematologic/Lymphatic: States: no symptoms reported Past Medical History (General) - Patient Medical History Hx Seizures: No Hx Stroke: No Hx Dementia: No Hx Asthma: No Hx of COPD: Yes Hx Cardiac Disorders: Yes - A-fib, heart failure Hx Congestive Heart Failure: Yes - Unspecified per history Hx Pacemaker: No Hx Hypertension: Yes Hx Thyroid Disease: No Hx Diabetes: No Hx Gastroesophageal Reflux: Yes Hx Renal Disease: No Hx Cancer: No Hx of HIV: No Hx Hepatitis C: No Hx MRSA: No MRSA Source:: Unknown Surgical History: cholecystectomy, other - Vaccination History Hx Tetanus, Diphtheria Vaccination: Yes Hx Influenza Vaccination: Yes Hx Pneumococcal Vaccination: Yes - Social History Hx Tobacco Use: Yes Hx Chewing Tobacco Use: No - does not chew anymore Hx Alcohol Use: No Hx Substance Use: No Hx Substance Use Treatment: No Hx Depression: Yes Hx Physical Abuse: No Hx Emotional Abuse: No Hx Suspected Abuse: No - Activities of Daily Living Intermediate/Assisted Living (if applicable):: [facility] - Female History Patient : No Family Medical History - Family History Father Living Status: Age at (years of age): 101 Cause of : old age Mother Family History: No Known Name: mom Age (years): 56 Living Status: Cause of : cancer-brain Hx Family Asthma: No Hx Family Congestive Heart Failure: No Hx Family Hypertension: No Hx Family Stroke: No Hx Cardiac Disease: No Hx Family Diabetes: No Hx Family Cancer: Yes - mom-brain Physical Exam - Physical Exam General Appearance: Ill Appearing, Obese, Unkempt Eye Exam: bilateral normal Ears, Nose, Throat: hearing grossly normal Neck: non-tender, full range of motion, supple Respiratory: crackles, rales - diffuse Cardiovascular/Chest: regular rate, rhythm - borderline tachycardia, other - stable lower extremity edema bilaterally Gastrointestinal/Abdominal: non tender, soft 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 Hospitalist called and agreed to admit patient for ongoing antibiotics and observation for stability/improvement. - Results/Orders Results/Orders: CXR - Cardiomegaly with slighly improved mild interstitial edema, patchy consolidative changes in the left midlung and right lung base slightly improved , and tiny left pleural effusion. 02/11/17 13:30 EKG STAT 02/11/17 13:50 BLOOD CULTURE Stat 02/11/17 15:44 ED Intent to Admit Routine Laboratory Results - last 24 hr 02/11/17 02/11/17 02/11/17 13:50 13:50 13:50 WBC 12.5 H RBC 4.63 L Hgb 13.3 L Hct 40.3 L MCV 87.0 MCH 28.7 MCHC 32.9 L RDW 15.0 H Plt Count 172 MPV 8.7 Absolute Neuts (auto) 11.30 H Absolute Lymphs (auto) 0.40 L Absolute Monos (auto) 0.70 Absolute Eos (auto) 0.10 Absolute Basos (auto) 0.10 Neutrophils % 90.6 H Lymphocytes % 3.1 L Monocytes % 5.2 Eosinophils % 0.5 L Basophils % 0.6 D-Dimer, Quantitative 622 H* Sodium 146 H Potassium 4.3 Chloride 103 Carbon Dioxide 30 Anion Gap 17.3 BUN 89 H Creatinine 3.28 H BUN/Creatinine Ratio 27.1 H Random Glucose 122 H Serum Osmolality 319.1 H Calcium 9.3 Total Bilirubin 1.2 H AST 20 ALT 26 Alkaline Phosphatase 47 Creatine Kinase 72 CK-MB (CK-2) 6.3 H* CK-MB (CK-2) % Not Reportable Troponin I 0.07 H* C-Reactive Protein 2.5 H B-Natriuretic Peptide 114.0 H Serum Total Protein 6.1 L Albumin 3.3 Globulin 2.8 Albumin/Globulin Ratio 1.2 02/11/17 02/11/17 13:12 13:30 Temperature 98.3 F Pulse Rate [ 98 H pulse ox] Respiratory 24 24 Rate Blood Pressure 126/47 [Right Arm] O2 Sat by Pulse 95 Oximetry - EKG/XRAY/CT EKG: Sinus - 97 bpm with PACs and no ST elevation Departure - Departure Clinical Impression: Chronic renal disease, stage 3, moderately decreased glomerular filtration rate between 30-59 mL/min/1.73 square meter Chest pain Qualifiers: Chest pain type: unspecified Qualified Code(s): R07.9 - Chest pain, unspecified Dyspnea Qualifiers: Dyspnea type: shortness of breath Qualified Code(s): R06.02 - Shortness of breath Pneumonia Qualifiers: Pneumonia type: due to unspecified organism Laterality: bilateral Lung location : unspecified part of lung Qualified Code(s): J18.9 - Pneumonia, unspecified organism Disposition: Admit Patient Departure Forms: ED Discharge - Pt. Copy, Patient Portal Self Enrollment Instructions: DI for Chest Pain Referrals: CARLOS SALDANA [Primary Care Provider] - 1-2 Weeks Home Medications: Ambulatory Orders Ascorbic Acid [Vitamin C] 500 mg PO BID 02/17/14 Furosemide [Lasix] 40 mg PO BID 02/17/14 HYDROcodone 7.5MG/APAP 325MG [[place] 7.5/325] 1 tab PO Q4H PRN 02/17/14 Metoprolol Tartrate 25 mg PO BID 02/17/14 Potassium Chloride [K-Tab] 40 meq PO DAILY 10/05/14 Albuterol Inhaler [Ventolin Hfa Inhaler] 2 puff INH Q6H PRN 09/26/15 Buspirone HCl 5 mg PO TID 09/26/15 Calcium Carbonate-Cholecalcife [Calcium 600+D3 600-400 mg-Unit] 1 tab PO DAILY 09/26/15 Ferrous Sulfate [Iron] 325 mg PO DAILY 09/26/15 Fluticasone-Salmeterol [Advair Hfa 115-21 Mcg/Act] 2 inh IN BID 09/26/15 Nitroglycerin 0.4 mg Tab [Nitrostat] 1 ea SL PRN 09/26/15 Warfarin Sodium [Coumadin] 4 mg PO MOTUWETHFR 09/26/15 Warfarin Sodium [Coumadin] 6 mg PO SUSA 09/26/15 predniSONE 10 mg PO QAM 09/26/15 Balsam [place] Oil [Venelex] 1 oin EX DAILY 01/11/17 Duloxetine HCl [Cymbalta] 60 mg PO BEDTIME 01/11/17 Gabapentin [Neurontin] 300 mg PO Q8H 01/11/17 Ipratropium/Albuterol [Duoneb] 3 ml NEB QID PRN 01/11/17 Lactobacillus [Acidophilus] 2 cap PO TID 01/11/17 Loperamide HCl 2 mg PO PRN 01/11/17 Urea 40 % EX DAILY 01/11/17 Albuterol Sulfate Nebs [Proventil Nebs] 2.5 mg NEB PRN PRN vial 01/15/17 Cefdinir [Omnicef] 300 mg PO BID #20 cap 01/15/17 Gentamicin 0.3% Ophth Ana [Garamycin Opthalmic Solution] 2 drop BOTH_EYES QID drops 01/15/17 Nicotine Patch 14 mg [Habitrol Patch 14mg] 1 ea TD Q24H PRN #10 patch 01/15/17 Nystatin Suspension 5 ml MT QID ud 01/15/17 predniSONE 40 mg PO DAILY 5 Days tab 01/15/17 Decision To Admit - Decistion To Admit Decision to Admit Reason: Medical Nature Decision to Admit Date: 02/11/17 Decision to Admit Time: 15:44
--- NOTE | 2017-02-11 15:55 | HP ---
SUPERVISING PHYSICIAN: Jai Alarcon MD CHIEF COMPLAINT: Chest pain and dizziness. HISTORY OF PRESENT ILLNESS: This is a 71-year-old male patient who is a resident of [facility]. He was recently discharged from [facility] three days ago due to pneumonia. He was on oral steroids and cefdinir. He said this afternoon he got up, he was very dizzy and threw up and his chest pain was rated as 7 to 8 out of 10. He was brought to the Emergency Room due to chest pain, shortness of breath and weakness. In the Emergency Room, his sodium was 146, potassium 4.3, chloride 103, carbon dioxide 30. BUN 89, creatinine 3.28. His baseline creatinine is between 2.5 and 3.5. His total bilirubin was 1.2, CK-MB 6.3, initial troponin 0.07. Followup CK was 5.1 with troponin 0.06. C-reactive protein was 2.5. WBCs 12.5, hemoglobin 13.3 , hematocrit 40.3. His chest x-ray per radiologic interpretation shows cardiomegaly with slightly improved mild interstitial edema with patchy consolidative changes in the left midlung and right lung base that are slightly improved, but not resolved. Recommend followup. I was called for hospital admission. PAST MEDICAL HISTORY: 1. Atrial fibrillation on chronic anticoagulation therapy with Coumadin. 2. Hypertension. 3. Chronic tobacco abuse. 4. History of stage IV chronic kidney disease. 5. Chronic obstructive pulmonary disease with chronic hypoxemia. 6. Multiple episodes of hospitalization secondary to pneumonia. 7. History of deep venous thrombosis in the left lower extremity. 8. History of cellulitis of both lower extremities. 9. 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 10. Obstructive sleep apnea on CPAP. PAST SURGICAL HISTORY: 1. Tonsillectomy. 2. Cholecystectomy. 3. Hemorrhoidectomy. 4. Amputation of multiple toes on both lower extremities secondary to frostbite. CURRENT MEDICATIONS: Per the EMR and awaiting verification. ALLERGIES: METFORMIN, NSAIDs AND CELEBREX. SOCIAL HISTORY: Mr. Porras lives at [facility]. He is . He has a history of smoking since he was in his teens. He previously smoked 2 to 3 packs of cigarettes daily, but he is now presently smoking one-half pack of cigarettes per day. He denies any alcohol or illicit drug use. REVIEW OF SYSTEMS: GENERAL: Positive for weakness and fatigue. Negative for fever or weight changes. HEENT: Negative for sinus symptoms, ear pain, vision changes or sore throat. RESPIRATORY: Positive for productive cough with shortness of breath. Negative for wheezing. CARDIAC: Positive for chest pain. Negative for palpitations or tachycardia. GASTROINTESTINAL: Positive for vomiting times one at the alf, but since then negative for nausea, vomiting, diarrhea, constipation. GENITOURINARY: Negative for hematuria, dysuria or polyuria. NEUROLOGIC: Positive for weakness and dizziness. Negative for seizures. PHYSICAL EXAMINATION: VITAL SIGNS: Temperature 99.2. Heart rate 95. Blood pressure 114/72. Respiratory rate 20. O2 saturation 96% on 6 liters nasal cannula. He does wear 6 liters nasal cannula at all times at the alf. GENERAL: This is a 71-year-old, morbidly obese male patient who is lying in his hospital bed. He is in no acute distress. HEENT: Normocephalic, atraumatic. Pupils are equal and reactive. Oropharynx is clear. NECK: Supple without mass. No discernible jugular venous distention. RESPIRATORY: Diminished breath sounds throughout. There is no wheezing. He does have some scattered rhonchi throughout. CARDIOVASCULAR: Regular rate and irregular rhythm. ABDOMEN: Soft, nondistended, nontender. Bowel sounds are positive. EXTREMITIES: No cyanosis, clubbing. There is a trace of pedal edema and he has multiple toe amputations on both feet. NEUROLOGIC: Awake, alert and oriented times three. LABORATORY: Labs and films are as per the history of present illness. EKG shows sinus rhythm with occasional premature ventricular contraction. All other labs and films have been reviewed via the EMR. ASSESSMENT: 1. Chest pain, rule out myocardial infarction with a chronically high borderline troponin. 2. Bilateral pneumonia, recently hospitalized at [facility] on cefdinir and p.o. steroids. 3. History of atrial fibrillation on Coumadin. 4. Chronic renal failure, stage IV. 5. Morbid obesity. 6. Tobacco abuse. 7. Obstructive sleep apnea on CPAP. 8. Hypertension. 9. Generalized weakness, most likely secondary to frequent hospitalizations in the last month or so. PLAN: We will place the patient in observation. I will initiate the chest pain guidelines. I will order a nicotine patch and order physical therapy consult. He has had no chest pain since admission to the Floor. We will also need to get his CPAP or a CPAP setting so we can initiate that here at the hospital. I have restarted his home medications and I have also started him on cefdinir and oral steroids. I will recheck some labs in the morning as well as a chest x-ray. I will also check PT/INR in the morning as his Coumadin therapy as been restarted. He has Protonix for ulcer prophylaxis as well as Coumadin for DVT prophylaxis. We will continue to monitor the patient closely and follow as needed. Dr. Alarcon is the collaborating physician and available for consultation. #[id number] [facility]ITAL[facility]
[2017-02-11] MEDS ORDERED: MORPHINE SULFATE INJ 10 MG/ML VIAL IV PRN (18:47)
[2017-02-11] MEDS ORDERED: NITROGLYCERIN 0.4 MG 25 EA TAB SL PRN (18:47)
[2017-02-11] MEDS ORDERED: SODIUM CHLORIDE 0.9% (FLUSH) 10 ML SYG IV PRN (18:47)
[2017-02-11] MEDS ORDERED: ACETAMINOPHEN 325 MG TAB PO PRN (18:47)
[2017-02-11] MEDS ORDERED: HYDROcodone 7.5MG/APAP 325MG 1 EA TAB PO PRN (18:52)
[2017-02-11] MEDS ORDERED: IV SET AND CAP CHANGE INJ INJ SCH (19:00)
[2017-02-11] MEDS ORDERED: METOPROLOL TARTRATE 25 MG TAB PO SCH (21:00)
[2017-02-11] MEDS ORDERED: NON-FORMULARY MEDICATION 1 EA MIS (Duloxetine Hcl [Cymbalta] 60 MG) PO SCH (21:00)
[2017-02-11] MEDS: guaiFENesin ER TAB 600 MG TAB PO SCH (21:32)
[2017-02-11] MEDS ORDERED: DULoxetine HCL 30 MG CAP PO ONE (21:32)
[2017-02-11] MEDS: CEFDINIR 300 MG CAP PO SCH (21:33)
[2017-02-11] MEDS: GABAPENTIN 300 MG CAP PO SCH (21:34)
[2017-02-11] MEDS: busPIRone HCL 5 MG TAB PO SCH (21:34)
[2017-02-11] MEDS: SODIUM CHLORIDE 0.9% (FLUSH) 10 ML SYG IV SCH (21:34)
[2017-02-11] MEDS ORDERED: NICOTINE PATCH 21 MG TD SCH (22:00)
--- NOTE | 2017-02-11 22:03 | PCM.CORE ---
Physician DVT/VTE - Prophylaxis Currently: Patient already on anticoagulation therapy - Nurse DVT Assessment & Total Each Risk Factor Represents 3 Points: Medical PT with Hx of GA, CHF, Severe infection/sepsis Each Risk Factor Represents 1 Point: Hx of smoking past year Each Risk Factor is 1 Point: Obesity (BMI >25) DVT Assessment Score: 5 - 5 or more Very High Risk Treatments: Early Ambulation *, Sequential Compression Device
[2017-02-12] MEDS: IPRATROPIUM/ALBUTEROL 3 ML VIAL NEB SCH ×2 (00:45→06:19)
[2017-02-12] MEDS ORDERED: NICOTINE PATCH 14 MG TD ONE (03:45)
[2017-02-12] MEDS ORDERED: PANTOPRAZOLE SODIUM IV 40 MG VIAL ONE (05:41)
[2017-02-12] MEDS ORDERED: PANTOPRAZOLE SODIUM TAB 40 MG PO SCH (06:30)
--- NOTE | 2017-02-12 07:07 | RAD ---
EXAM: Single view chest. INDICATION: Pneumonia. COMPARISON: Chest x-ray: 02/11/2017. FINDINGS: There are bibasilar airspace opacities. The heart size is stable. There is no pneumothorax or pleural effusion. The bones are unchanged. IMPRESSION: Bibasilar airspace opacities, which may represent atelectasis or pneumonia. Electronically signed by: Monroe Aldridge MD 02/12/2017 7:06 AM [facility] Workstation: [id number]
[2017-02-12] MEDS ORDERED: POTASSIUM CHLORIDE 20 MEQ TAB PO SCH (07:30)
[2017-02-12] MEDS ORDERED: METOPROLOL TARTRATE 25 MG TAB PO SCH (07:30)
[2017-02-12] MEDS: guaiFENesin ER TAB 600 MG TAB PO SCH (08:34)
[2017-02-12] MEDS: busPIRone HCL 5 MG TAB PO SCH (08:35)
[2017-02-12] MEDS: SODIUM CHLORIDE 0.9% (FLUSH) 10 ML SYG IV SCH (08:35)
[2017-02-12] MEDS: GABAPENTIN 300 MG CAP PO SCH (08:35)
[2017-02-12] MEDS: CEFDINIR 300 MG CAP PO SCH (08:35)
[2017-02-12] MEDS ORDERED: FUROSEMIDE 40 MG TAB PO SCH (09:00)
[2017-02-12] MEDS ORDERED: ASPIRIN TABLET 325 MG TAB PO SCH (09:00)
[2017-02-12] MEDS ORDERED: predniSONE 20 MG TAB PO SCH (09:00)
[2017-02-12] MEDS ORDERED: WARFARIN SODIUM 5 MG TAB PO ONE (09:33)
[2017-02-12 10:38] VITALS: BP 100/68; TEMP 97.9; O2SAT 95
[2017-02-12] MEDS ORDERED: WARFARIN SODIUM 2 MG TAB PO SCH (12:00)
[2017-02-12] MEDS ORDERED: DULoxetine HCL 30 MG CAP PO SCH (21:00)
[2017-02-12] MEDS ORDERED: NICOTINE PATCH 21 MG TD SCH (21:00)
== END 2017-02-12 01:30 | disposition home or self-care (01) ==
LOC: ER 13:12 → MS 15:53
PROVIDERS: ADMIT Nurse Practitioner Acute Care; ATTEND Nurse Practitioner Family
DX: J18.9 Pneumonia, unspecified organism (principal); R07.89 Other chest pain; I48.91 Unspecified atrial fibrillation; I12.9 Hypertensive chronic kidney disease with stage 1 through stage 4 chronic kidney disease, or unspecified chronic kidney disease; N18.4 Chronic kidney disease, stage 4 (severe); E66.01 Morbid (severe) obesity due to excess calories; F17.210 Nicotine dependence, cigarettes, uncomplicated; G47.33 Obstructive sleep apnea (adult) (pediatric); R53.1 Weakness; J44.9 Chronic obstructive pulmonary disease, unspecified; R09.02 Hypoxemia; Z66 Do not resuscitate; Z68.37 Body mass index [BMI] 37.0-37.9, adult; Z79.01 Long term (current) use of anticoagulants; Z79.52 Long term (current) use of systemic steroids; Z79.899 Other long term (current) drug therapy; Z88.8 Allergy status to other drugs, medicaments and biological substances; Z86.718 Personal history of other venous thrombosis and embolism; Z89.422 Acquired absence of other left toe(s); Z89.421 Acquired absence of other right toe(s)
CPT/HCPCS: 36415 ×6; 71010 ×2; 80053; 80061; 82550 ×3; 82553 ×3; 83880; 84484 ×3; 85025 ×2; 85379; 85610; 86140; 87040; 93005 ×3; 94640 ×2; 94762; 99284; 99406; G0378; J7040; J7512; J7620 ×2

== ENCOUNTER 2017-04-26 05:34 | Emergency (ER) | payer MEDICARE, MEDICAID ==
[2017-04-26] MEDS ORDERED: FUROSEMIDE INJ 40 MG/4 ML VIAL ONE (05:38)
[2017-04-26] MEDS ORDERED: IPRATROPIUM/ALBUTEROL 3 ML VIAL NEB ONE ×2 (05:40→08:57)
[2017-04-26] MEDS ORDERED: methylPREDNISolone SODIUM SUC 40 MG/ML VIAL IV ONE (05:48)
[2017-04-26] MEDS ORDERED: FUROSEMIDE INJ 100 MG/10 ML VIAL IV ONE (05:49)
[2017-04-26] MEDS ORDERED: cefTRIAXone SODIUM 1 GM in SODIUM CHL 0.9% 50ML MIN-BAG+ 50 ML IVPB ONE (05:52)
[2017-04-26] MEDS ORDERED: cefTRIAXone SODIUM 1 GM VIAL ONE (05:54)
[2017-04-26] MEDS ORDERED: SODIUM CHL 0.9% 50ML MIN-BAG+ 50 ML IVPB ONE (05:55)
--- NOTE | 2017-04-26 06:05 | ED.PDOC ---
History of Present Illness - General Source: patient Exam Limitations: no limitations - History of Present Illness Initial Comments: the patient is a 72-year-old male presenting to emergency room secondary to severe shortness of breath. He reports that he's been having symptoms for the last 4-5 days. He does have a known history of congestive heart failure, chronic renal insufficiency and severe COPD. He has apparently been taking prednisone at 20 mg daily for the last few weeks. He has come off of Augmentin approximately 1 week ago. The patient is supposed to wear his CPAP however it does not appear that he has been doing that. Upon arrival the patient did revoke a previous advanced directive stating that he did not want intubation if necessary. He does want that at this time if it becomes necessary. He also does want all other initial resuscitative measures for now. The patient is a marked respiratory distress. He is alert and oriented. He says he has not really been coughing up much. No chest pain. He reports significant increase in his swelling. No real fevers. No real runny nose. No real sore throat. When EMS found him he was around 63% on his oxygen in his room. Nonrebreather to get him up to 85%. Timing/Duration: unsure Severity: severe Improving Factors: nothing Worsening Factors: nothing Associated Symptoms: cough, malaise, shortness of breath, weakness <Joaquín Alarcon - Last Filed: 04/26/17 06:46> <Corby Bains - Last Filed: 04/26/17 08:58> - General Chief Complaint: Respiratory Problem Stated Complaint: difficulty breathing Time Seen by Provider: 04/26/17 05:38 - History of Present Illness Allergies/Adverse Reactions: Allergies Celecoxib [From Celebrex] Allergy (Verified 04/26/17 05:57) Metformin Allergy (Verified 04/26/17 05:57) NSAIDs Allergy (Verified 04/26/17 05:57) Home Medications: Ambulatory Orders Albuterol Sulfate Nebs [Proventil Nebs] 2.5 mg INH Q6H PRN 02/11/17 Ascorbic Acid [Vitamin C] 500 mg PO BID 02/11/17 Buspirone HCl 5 mg PO TID 02/11/17 Calcium Acetate (Phosphate Bin [Calcium Acetate] 2 tablet PO TID 02/11/17 Calcium Carbonate-Cholecalcife [Calcium 600+D3 600-400 mg-Unit] 1 tab PO DAILY 02/11/17 Duloxetine HCl [Cymbalta] 60 mg PO BEDTIME 02/11/17 Furosemide [Lasix] 40 mg PO DAILY 02/11/17 Gabapentin [Neurontin] 300 mg PO TID 02/11/17 Guaifenesin [Mucinex] 600 mg PO BID 02/11/17 HYDROcodone 7.5MG/APAP 325MG [[place] 7.5/325] 1 tab PO Q4H PRN 02/11/17 Ipratropium/Albuterol [Duoneb] 3 ml NEB QID PRN 02/11/17 Metoprolol Tartrate 25 mg PO BID 02/11/17 Pantoprazole Tablet [Protonix] 40 mg PO ACBK 02/11/17 Potassium Chloride [Potassium Chloride ER] 20 meq PO DAILY 02/11/17 Warfarin Sodium [Coumadin] 2 mg PO DAILY 02/11/17 predniSONE 40 mg PO DAILY 02/11/17 Cefdinir [Omnicef] 300 mg PO BID 10 Days cap 02/12/17 Nitroglycerin 0.4 mg Tab [Nitrostat] 1 ea SL Q5MIN PRN bttl 02/12/17 Review of Systems - Review of Systems Constitutional: States: malaise, weakness EENTM: States: no symptoms reported Respiratory: States: cough, orthopnea, short of breath, wheezing Cardiology: States: edema Gastrointestinal/Abdominal: States: no symptoms reported Genitourinary: States: no symptoms reported Musculoskeletal: States: no symptoms reported Skin: States: no symptoms reported Neurological: States: no symptoms reported Endocrine: States: no symptoms reported All other Systems: No Change from Baseline <Joaquín Alarcon - Last Filed: 04/26/17 06:46> Past Medical History (General) - Patient Medical History Hx Seizures: No Hx Stroke: No Hx Dementia: No Hx Asthma: No Hx of COPD: Yes Hx Cardiac Disorders: Yes - AFib Hx Congestive Heart Failure: Yes - Unspecified per history Hx Pacemaker: No Hx Hypertension: Yes Hx Thyroid Disease: No Hx Diabetes: No Hx Gastroesophageal Reflux: Yes Hx Renal Disease: No Hx Cancer: No Hx of HIV: No Hx Hepatitis C: No Hx MRSA: No MRSA Source:: Unknown Surgical History: noncontributory - Vaccination History Hx Tetanus, Diphtheria Vaccination: Yes Hx Influenza Vaccination: Yes Hx Pneumococcal Vaccination: Yes - Social History Hx Tobacco Use: Yes Hx Chewing Tobacco Use: No - does not chew anymore Hx Alcohol Use: No Hx Substance Use: No Hx Substance Use Treatment: No Hx Depression: Yes Hx Physical Abuse: No Hx Emotional Abuse: No Hx Suspected Abuse: No - Activities of Daily Living Longterm/Assisted Living (if applicable):: [facility] - Female History Patient : No <DorianJoaquín Harrell - Last Filed: 04/26/17 06:46> Family Medical History - Family History Father Living Status: Age at (years of age): 101 Cause of : old age Mother Family History: No Known Name: mom Age (years): 56 Living Status: Cause of : cancer-brain Hx Family Asthma: No Hx Family Congestive Heart Failure: No Hx Family Hypertension: No Hx Family Stroke: No Hx Cardiac Disease: No Hx Family Diabetes: No Hx Family Cancer: Yes - mom-brain <DorianJoaquín Harrell - Last Filed: 04/26/17 06:46> Physical Exam - Physical Exam General Appearance: Alert, Obvious distress, Ill Appearing - the patient is in obvious respiratory distress with impending failure without further intervention Eye Exam: bilateral normal Ears, Nose, Throat: hearing grossly normal, normal ENT inspection, normal pharynx Neck: full range of motion, supple Respiratory: chest non-tender, respiratory distress, decreased breath sounds, accessory muscle use, crackles - cattered, rales - cattered, rhonchi - scattered , wheezing - scattered Cardiovascular/Chest: tachycardia - a sinus rhythm with occasional PACs and PVCs on telemetry monitoring Peripheral Pulses: radial,right: 2+, radial,left: 2+ Gastrointestinal/Abdominal: non tender - obese, soft Rectal Exam: deferred Back Exam: no CVA tenderness, no vertebral tenderness Extremity: normal range of motion, pedal edema - he has 3+ edema to bilateral lower extremities. This is apparently more than what is normal for him. The patient also has chronic irritation sites to bilateral lower extremities from previous frostbite Neurologic: expense analyst II-XII nml as tested, alert, oriented x 3, other - the patient is obviously anxious Skin Exam: normal color Comments: Vital Signs - 24 hr 04/26/17 04/26/17 05:37 05:39 Temperature 99.4 F Pulse Rate [ 105 H Right] Pulse Rate [ 110 H monitor] Respiratory 25 H 28 H Rate Blood Pressure 165/80 [right arm] O2 Sat by Pulse 91 L Oximetry <Joaquín Alarcon - Last Filed: 04/26/17 06:46> Progress - Progress Progress: 04/26/17 06:26 patient is a 72-year-old male presenting after 4-5 days of progressive symptoms of shortness of breath, arriving in severe respiratory distress almost requiring immediate intubation. While this is most likely primarily a severe COPD exacerbation, there does appear to be a significant CHF component and an infectious component behind that can not yet be ruled out. The patient is responding clinically to higher flow oxygen along with BiPAP. He has been placed on low-flow IV nitroglycerin for now to target a systolic blood pressure of 110. He has received 1 dose of IV Lasix. ABG was taken after 10-15 minutes of BiPAP. A repeat will need to be performed to make sure the pH is correcting with correction of respiratory status. He has received several DuoNeb breathing treatments and will need a few more over the next few hours. He has received a dose of IV Solu-Medrol. He has received a dose of IV Rocephin. Blood cultures have been performed. The patient will need to be monitored for the next few hours with some repeat testing and repeat administration of some medications. If he continues to improve then an admission here at this facility may be appropriate, if not, then he will need to be transferred for higher level of care. The patient did revoke his DO NOT INTUBATE order. He was capable of making that decision at his time of arrival. Dr bains will be assuming care of the patient. 40 minutes of critical care time spent by me so far in the management respiratory distress with impending failure in this patient. 04/26/17 06:43 after about an hour and 10 minutes of time since his last nebulizer treatment and he has started to tighten back up a little bit. The patient will be receiving 2 more albuterol nebulizers. - Results/Orders Results/Orders: 04/26/17 05:39 Laboratory Results - last 24 hr 04/26/17 04/26/17 04/26/17 05:25 05:25 06:00 PT 12.0 INR 1.060 PTT (SP) 27.1 D-Dimer, Quantitative 298 H* pCO2 76 H pO2 74 L HCO3 33.2 ABG pH 7.260 L* ABG O2 Saturation 95.4 ABG Base Excess 4.3 ABG Deoxyhemoglobin 4.3 Oxyhemoglobin % 89.6 L Carboxyhemoglobin % 4.7 H Methemoglobin % Sat 1.4 Calc Total Hemoglobin 12.4 L Sodium 141 Potassium 4.1 Chloride 99 L Carbon Dioxide 34 H Anion Gap 12.1 BUN 46 H Creatinine 2.50 H BUN/Creatinine Ratio 18.4 Random Glucose 129 H Serum Osmolality 294.9 Calcium 9.3 Magnesium 2.2 Total Bilirubin 0.7 AST 15 ALT 11 Alkaline Phosphatase 65 Creatine Kinase 24 L CK-MB (CK-2) 3.5 CK-MB (CK-2) % Not Reportable Troponin I 0.05 B-Natriuretic Peptide 408.0 H* Serum Total Protein 7.2 Albumin 3.7 Globulin 3.5 Albumin/Globulin Ratio 1.1 chest x-ray shows increased lower lobe infiltrates bilaterally as well as a small effusion and some cardiomegaly. no obvious entirely new pneumonias. telemetry monitoring shows sinus tachycardia with occasional PACs and PVCs. <Joaquín Alarcon - Last Filed: 04/26/17 06:46> - Progress Progress: 04/26/17 08:53 Patient's repeate ABG showed pCO2 78 which was unchanged. pH 7.26 which as unchanged. He had no urinary output at this point. wbc 20.1. Patient was somnolent but arousable. He was given Azithromycin 500 mg IV. Due to his unchanged respiratory status after stablization, he was transferred to ICU at [facility] to Dr. Evans. 120 minutes critical care time spent managing this patient. <Corby Bains - Last Filed: 04/26/17 08:58> Departure <Joaquín Alarcon - Last Filed: 04/26/17 06:46> - Departure Diet: other - as per hospitalist Activity: as per physical therapy <Corby Bains - Last Filed: 04/26/17 08:58> - Departure Clinical Impression: Respiratory distress, acute, COPD with exacerbation CHF exacerbation Qualifiers: Congestive heart failure type: unspecified congestive heart failure type Qualified Code(s): I50.9 - Heart failure, unspecified Disposition: Transfer to Hospital Condition: Fair Referrals: CARLOS SALDANA [Primary Care Provider] - 1-2 Weeks Home Medications: Ambulatory Orders Albuterol Sulfate Nebs [Proventil Nebs] 2.5 mg INH Q6H PRN 02/11/17 Ascorbic Acid [Vitamin C] 500 mg PO BID 02/11/17 Buspirone HCl 5 mg PO TID 02/11/17 Calcium Acetate (Phosphate Bin [Calcium Acetate] 2 tablet PO TID 02/11/17 Calcium Carbonate-Cholecalcife [Calcium 600+D3 600-400 mg-Unit] 1 tab PO DAILY 02/11/17 Duloxetine HCl [Cymbalta] 60 mg PO BEDTIME 02/11/17 Furosemide [Lasix] 40 mg PO DAILY 02/11/17 Gabapentin [Neurontin] 300 mg PO TID 02/11/17 Guaifenesin [Mucinex] 600 mg PO BID 02/11/17 HYDROcodone 7.5MG/APAP 325MG [[place] 7.5/325] 1 tab PO Q4H PRN 02/11/17 Ipratropium/Albuterol [Duoneb] 3 ml NEB QID PRN 02/11/17 Metoprolol Tartrate 25 mg PO BID 02/11/17 Pantoprazole Tablet [Protonix] 40 mg PO ACBK 02/11/17 Potassium Chloride [Potassium Chloride ER] 20 meq PO DAILY 02/11/17 Warfarin Sodium [Coumadin] 2 mg PO DAILY 02/11/17 predniSONE 40 mg PO DAILY 02/11/17 Cefdinir [Omnicef] 300 mg PO BID 10 Days cap 02/12/17 Nitroglycerin 0.4 mg Tab [Nitrostat] 1 ea SL Q5MIN PRN bttl 02/12/17 Addendum entered and electronically signed by Joaquín Alarcon MD 04/26/17 06:46 : Departure - Departure Clinical Impression: Respiratory distress, acute, COPD with exacerbation CHF exacerbation Qualifiers: Congestive heart failure type: unspecified congestive heart failure type Qualified Code(s): I50.9 - Heart failure, unspecified Disposition: Admit Patient Referrals: CARLOS SALDANA [Primary Care Provider] - 1-2 Weeks Home Medications: Ambulatory Orders Albuterol Sulfate Nebs [Proventil Nebs] 2.5 mg INH Q6H PRN 02/11/17 Ascorbic Acid [Vitamin C] 500 mg PO BID 02/11/17 Buspirone HCl 5 mg PO TID 02/11/17 Calcium Acetate (Phosphate Bin [Calcium Acetate] 2 tablet PO TID 02/11/17 Calcium Carbonate-Cholecalcife [Calcium 600+D3 600-400 mg-Unit] 1 tab PO DAILY 02/11/17 Duloxetine HCl [Cymbalta] 60 mg PO BEDTIME 02/11/17 Furosemide [Lasix] 40 mg PO DAILY 02/11/17 Gabapentin [Neurontin] 300 mg PO TID 02/11/17 Guaifenesin [Mucinex] 600 mg PO BID 02/11/17 HYDROcodone 7.5MG/APAP 325MG [[place] 7.5/325] 1 tab PO Q4H PRN 02/11/17 Ipratropium/Albuterol [Duoneb] 3 ml NEB QID PRN 02/11/17 Metoprolol Tartrate 25 mg PO BID 02/11/17 Pantoprazole Tablet [Protonix] 40 mg PO ACBK 02/11/17 Potassium Chloride [Potassium Chloride ER] 20 meq PO DAILY 02/11/17 Warfarin Sodium [Coumadin] 2 mg PO DAILY 02/11/17 predniSONE 40 mg PO DAILY 02/11/17 Cefdinir [Omnicef] 300 mg PO BID 10 Days cap 02/12/17 Nitroglycerin 0.4 mg Tab [Nitrostat] 1 ea SL Q5MIN PRN bttl 02/12/17 ED Addendum - ED Addendum Addendum: EKG shows a sinus rhythm at a rate of 100 bpm. He does have occasional PVCs and PACs. There is an incomplete right bundle branch block with poor R-wave progression in anterior leads. No other ST segment changes consistent with ischemia.
--- NOTE | 2017-04-26 06:05 | RAD ---
Chest single view on 04/26/2017 CLINICAL INDICATION: Severe shortness of breath COMPARISON: 04/01/2017 FINDINGS: There are mild worsening bilateral lower lung opacities consistent with atelectasis and/or pneumonia. There is a small left pleural effusion. Heart is upper limits normal for size. Vascular calcification is noted in the aorta. IMPRESSION: Mild worsening bilateral lower lung atelectasis and/or pneumonia. Electronically signed by: Philip Dang 04/26/2017 6:03 AM [employer]
[2017-04-26] MEDS ORDERED: NITROGLYCERIN/D5W IV 50,000 MCG in PREMIX BOTTLE 1 BOTTLE IVS SCH (06:30)
[2017-04-26] MEDS: ALBUTEROL SULFATE 2.5 MG/3 ML VIAL NEB ONE (06:55)
[2017-04-26] MEDS ORDERED: AZITHROMYCIN IV 500 MG in SODIUM CHLORIDE 0.9% 250ML 250 ML IVPB ONE (08:39)
[2017-04-26 09:09] VITALS: TEMP 98.2
[2017-04-26 09:10] VITALS: BP 123/72
[2017-04-26] MEDS ORDERED: AZITHROMYCIN IV 500 MG VIAL IVPB ONE (09:10)
[2017-04-26] MEDS ORDERED: SODIUM CHLORIDE 0.9% 250ML 250 ML ONE (09:11)
[2017-04-26 10:03] VITALS: O2SAT 91
== END 2017-04-26 09:35 | disposition short-term general hospital (02) ==
LOC: ER 05:34
DX: J44.1 Chronic obstructive pulmonary disease with (acute) exacerbation (principal); R06.03 Acute respiratory distress; I11.0 Hypertensive heart disease with heart failure; I50.9 Heart failure, unspecified; I48.91 Unspecified atrial fibrillation; I45.10 Unspecified right bundle-branch block; Z87.891 Personal history of nicotine dependence; Z79.01 Long term (current) use of anticoagulants; Z79.899 Other long term (current) drug therapy
CPT/HCPCS: 36415; 36600; 71045; 80053; 81001; 82550; 82553; 82803; 82805; 83605; 83735; 83880; 84484; 85025; 85379; 85610; 85730; 87040; 93005; 94640; 94660; J0456; J0696; J1030; J1940; J7050; J7611; J7620

== ENCOUNTER 2017-05-05 03:16 | Inpatient (IN) | payer MEDICARE, MEDICAID ==
--- NOTE | 2017-05-05 03:23 | ED.PDOC ---
History of Present Illness - General Chief Complaint: Respiratory Problem Stated Complaint: shortness of breath Time Seen by Provider: 05/05/17 03:20 Source: EMS Exam Limitations: no limitations - History of Present Illness Initial Comments: Omid Porras 72 y/o male brought by EMS after he was found to have low Sao2, sob,fever-T 102 and redness/pain right leg swelling tonight.No cough,no abdominal pains ,chest pains ,N/V.He was recently hospitalized in for respiratory distress and chf nos one week ago. Timing/Duration: 4-6 hours Severity: moderate Activities at Onset: none Possible Cause: no prior episodes Improving Factors: other - o2/nc Worsening Factors: nothing Associated Symptoms: other - see hpi Respiratory Risk Factors: other - smoking Allergies/Adverse Reactions: Allergies Celecoxib [From Celebrex] Allergy (Verified 04/26/17 05:57) Metformin Allergy (Verified 04/26/17 05:57) NSAIDs Allergy (Verified 04/26/17 05:57) Home Medications: Ambulatory Orders Albuterol Sulfate Nebs [Proventil Nebs] 2.5 mg INH Q6H PRN 02/11/17 Ascorbic Acid [Vitamin C] 500 mg PO BID 02/11/17 Buspirone HCl 5 mg PO TID 02/11/17 Calcium Acetate (Phosphate Bin [Calcium Acetate] 2 tablet PO TID 02/11/17 Calcium Carbonate-Cholecalcife [Calcium 600+D3 600-400 mg-Unit] 1 tab PO DAILY 02/11/17 Duloxetine HCl [Cymbalta] 60 mg PO BEDTIME 02/11/17 Furosemide [Lasix] 40 mg PO DAILY 02/11/17 Gabapentin [Neurontin] 300 mg PO TID 02/11/17 Guaifenesin [Mucinex] 600 mg PO BID 02/11/17 HYDROcodone 7.5MG/APAP 325MG [[place] 7.5/325] 1 tab PO Q4H PRN 02/11/17 Ipratropium/Albuterol [Duoneb] 3 ml NEB QID PRN 02/11/17 Metoprolol Tartrate 25 mg PO BID 02/11/17 Pantoprazole Tablet [Protonix] 40 mg PO ACBK 02/11/17 Potassium Chloride [Potassium Chloride ER] 20 meq PO DAILY 02/11/17 Warfarin Sodium [Coumadin] 2 mg PO DAILY 02/11/17 predniSONE 40 mg PO DAILY 02/11/17 Cefdinir [Omnicef] 300 mg PO BID 10 Days cap 02/12/17 Nitroglycerin 0.4 mg Tab [Nitrostat] 1 ea SL Q5MIN PRN bttl 02/12/17 Review of Systems - Review of Systems Constitutional: States: no symptoms reported EENTM: States: no symptoms reported Respiratory: States: see HPI Cardiology: States: no symptoms reported Gastrointestinal/Abdominal: States: no symptoms reported Genitourinary: States: no symptoms reported Musculoskeletal: States: other - leg pain/swelling Skin: States: see HPI Neurological: States: no symptoms reported All other Systems: Reviewed and Negative, No Change from Baseline Past Medical History (General) - Patient Medical History Hx Seizures: No Hx Stroke: No Hx Dementia: No Hx Asthma: No Hx of COPD: Yes Hx Cardiac Disorders: Yes - AFib Hx Congestive Heart Failure: Yes - Unspecified per history Hx Pacemaker: No Hx Hypertension: Yes Hx Thyroid Disease: No Hx Diabetes: No Hx Gastroesophageal Reflux: Yes Hx Renal Disease: No Hx Cancer: No Hx of HIV: No Hx Hepatitis C: No Hx MRSA: No MRSA Source:: Unknown Surgical History: cholecystectomy, other - cataracts,toe amputations-frostbite - Vaccination History Hx Tetanus, Diphtheria Vaccination: Yes Hx Influenza Vaccination: Yes Hx Pneumococcal Vaccination: Yes - Social History Hx Tobacco Use: Yes Hx Chewing Tobacco Use: No - does not chew anymore Hx Alcohol Use: No Hx Substance Use: No Hx Substance Use Treatment: No Hx Depression: Yes Hx Physical Abuse: No Hx Emotional Abuse: No Hx Suspected Abuse: No - Female History Patient : No Family Medical History - Family History Father Living Status: Age at (years of age): 101 Cause of : old age Mother Family History: No Known Name: mom Age (years): 56 Living Status: Cause of : cancer-brain Hx Family Asthma: No Hx Family Congestive Heart Failure: No Hx Family Hypertension: No Hx Family Stroke: No Hx Cardiac Disease: No Hx Family Diabetes: No Hx Family Cancer: Yes - mom-brain Physical Exam - Physical Exam General Appearance: Alert, Anxious, Comfortable, No apparent distress Eyes, Ears, Nose, Throat Exam: normal ENT inspection Neck: non-tender, full range of motion, supple Respiratory: chest non-tender, no accessory muscle use, decreased breath sounds Cardiovascular/Chest: no gallop, no murmur, tachycardia Peripheral Pulses: radial,right: 2+, radial,left: 2+ Gastrointestinal/Abdominal: non tender, soft, other - obese Extremity: calf tenderness - right leg, inflammation - right leg, swelling - redness right leg Neurologic: oriented x 3, sensory deficit - both feet Skin Exam: warm/dry, other - thickened crusted stump both feet with amptated toes Progress - Progress Progress: 05/05/17 04:44 Vital Signs - 8 hr 05/05/17 05/05/17 03:24 03:25 Temperature 102.3 F H Pulse Rate [ 119 H Right] Respiratory 40 H 40 H Rate Blood Pressure 119/60 [Left Arm] O2 Sat by Pulse 90 L Oximetry - Results/Orders Results/Orders: 05/05/17 03:24 IV Care:Saline Lock per Protoc QSHIFT EKG Assessment DAILY 05/05/17 03:30 EKG STAT 05/05/17 04:48 Vancomycin HCl Inj 1,000 mg Sodium Chloride 0.9% 250Ml [NS 250ml] 250 ml IVPB ONCE 05/05/17 04:54 BiPAP/CPAP Treatment DAILY 05/05/17 04:55 BLOOD CULTURE Stat 05/05/17 05:21 Magnesium Sulfate Premix 2Gm 2 gm Premix Bag 1 bag IVPB ONCE 05/05/17 05:31 CRP [C-REACTIVE PROTEIN] Stat 05/05/17 09:00 BiPAP Daily Laboratory Results - last 24 hr 05/05/17 05/05/17 05/05/17 03:30 03:30 03:36 WBC 17.8 H RBC 4.88 Hgb 13.6 L Hct 43.7 MCV 89.5 MCH 27.8 MCHC 31.2 L RDW 18.9 H Plt Count 191 MPV 9.3 Absolute Neuts (auto) 16.60 H Absolute Lymphs (auto) 0.90 L Absolute Monos (auto) 0.20 Absolute Eos (auto) 0.00 Absolute Basos (auto) 0.00 Neutrophils % 93.0 H Lymphocytes % 5.2 L Monocytes % 1.4 L Eosinophils % 0.2 L Basophils % 0.2 PT 14.3 H INR 1.270 PTT (SP) 27.7 D-Dimer, Quantitative 1577 H* Sodium 146 H Potassium 4.4 Chloride 107 Carbon Dioxide 28 Anion Gap 15.4 BUN 47 H Creatinine 2.49 H BUN/Creatinine Ratio 18.9 Random Glucose 116 H Serum Osmolality 303.8 H Lactic Acid Calcium 8.7 Magnesium 1.3 L Total Bilirubin 0.5 Direct Bilirubin < 0.1 Indirect Bilirubin 0.4 AST 19 ALT 23 Alkaline Phosphatase 54 Creatine Kinase 23 L CK-MB (CK-2) 3.1 CK-MB (CK-2) % Not Reportable Troponin I 0.05 B-Natriuretic Peptide 272.0 H* Serum Total Protein 6.5 Albumin 3.3 Urine Color Yellow Urine Appearance Clear Urine pH 5.5 Ur Specific [place] 1.015 Urine Protein 100 H Urine Glucose (UA) 100 H Urine Ketones Negative Urine Blood Small H Urine Nitrite Negative Urine Bilirubin Negative Urine Urobilinogen 0.2 Ur Leukocyte Esterase Negative Urine RBC 1-3 Urine WBC 0-1 Ur Epithelial Cells 0-1 Urine Bacteria Rare 05/05/17 04:55 WBC RBC Hgb Hct MCV MCH MCHC RDW Plt Count MPV Absolute Neuts (auto) Absolute Lymphs (auto) Absolute Monos (auto) Absolute Eos (auto) Absolute Basos (auto) Neutrophils % Lymphocytes % Monocytes % Eosinophils % Basophils % PT INR PTT (SP) D-Dimer, Quantitative Sodium Potassium Chloride Carbon Dioxide Anion Gap BUN Creatinine BUN/Creatinine Ratio Random Glucose Serum Osmolality Lactic Acid 1.5 Calcium Magnesium Total Bilirubin Direct Bilirubin Indirect Bilirubin AST ALT Alkaline Phosphatase Creatine Kinase CK-MB (CK-2) CK-MB (CK-2) % Troponin I B-Natriuretic Peptide Serum Total Protein Albumin Urine Color Urine Appearance Urine pH Ur Specific [place] Urine Protein Urine Glucose (UA) Urine Ketones Urine Blood Urine Nitrite Urine Bilirubin Urine Urobilinogen Ur Leukocyte Esterase Urine RBC Urine WBC Ur Epithelial Cells Urine Bacteria - EKG/XRAY/CT EKG: Sinus, Tachy Comments: HR-106 IRBB,LAFB XRAY: chest - bilateral infiltrates with retrocardiac opacification Xray Comments: Venous Sono-no dvt right leg Departure - Departure Clinical Impression: Sleep apnea, obstructive Cellulitis Qualifiers: Site of cellulitis: extremity Site of cellulitis of extremity: lower extremity Laterality: right Qualified Code(s): L03.115 - Cellulitis of right lower limb Chronic respiratory failure Qualifiers: Respiratory failure complication: unspecified whether with hypoxia or hypercapnia Qualified Code(s): J96.10 - Chronic respiratory failure, unspecified whether with hypoxia or hypercapnia Renal failure Qualifiers: Renal failure chronicity: chronic Chronic kidney disease stage: stage 3 ( moderate) Qualified Code(s): N18.3 - Chronic kidney disease, stage 3 (moderate) Time of Disposition: 06:00 Disposition: Admit Patient Condition: Fair Departure Forms: Patient Portal Self Enrollment Referrals: CARLOS SALDANA [Primary Care Provider] - 1-2 Weeks Home Medications: Ambulatory Orders Albuterol Sulfate Nebs [Proventil Nebs] 2.5 mg INH Q6H PRN 02/11/17 Ascorbic Acid [Vitamin C] 500 mg PO BID 02/11/17 Buspirone HCl 5 mg PO TID 02/11/17 Calcium Acetate (Phosphate Bin [Calcium Acetate] 2 tablet PO TID 02/11/17 Calcium Carbonate-Cholecalcife [Calcium 600+D3 600-400 mg-Unit] 1 tab PO DAILY 02/11/17 Duloxetine HCl [Cymbalta] 60 mg PO BEDTIME 02/11/17 Furosemide [Lasix] 40 mg PO DAILY 02/11/17 Gabapentin [Neurontin] 300 mg PO TID 02/11/17 Guaifenesin [Mucinex] 600 mg PO BID 02/11/17 HYDROcodone 7.5MG/APAP 325MG [[place] 7.5/325] 1 tab PO Q4H PRN 02/11/17 Ipratropium/Albuterol [Duoneb] 3 ml NEB QID PRN 02/11/17 Metoprolol Tartrate 25 mg PO BID 02/11/17 Pantoprazole Tablet [Protonix] 40 mg PO ACBK 02/11/17 Potassium Chloride [Potassium Chloride ER] 20 meq PO DAILY 02/11/17 Warfarin Sodium [Coumadin] 2 mg PO DAILY 02/11/17 predniSONE 40 mg PO DAILY 02/11/17 Cefdinir [Omnicef] 300 mg PO BID 10 Days cap 02/12/17 Nitroglycerin 0.4 mg Tab [Nitrostat] 1 ea SL Q5MIN PRN bttl 02/12/17 Decision To Admit - Decistion To Admit Decision to Admit Reason: Admit from ER Decision to Admit Date: 05/05/17 - D/W Jayjay Schultz-ANP/Hospitalist Decision to Admit Time: 05:58
[2017-05-05] MEDS ORDERED: ACETAMINOPHEN 325 MG TAB ONE (04:20)
[2017-05-05] MEDS ORDERED: ACETAMINOPHEN 325 MG TAB PO ONE (04:23)
--- NOTE | 2017-05-05 04:33 | RAD ---
Examination: XR CHEST 1 VIEW dated 05/05/2017 3:24 AM CDT History: sob Comparison: 04/26/2017 Technique: 1 view chest Findings: Prominence of interstitial markings bilaterally. Retrocardiac opacification. Probable left pleural effusion. The cardiac silhouette projects enlarged. Impression: Findings of CHF. Retrocardiac opacification may be secondary to atelectasis or pneumonia. Electronically signed by: Buddy Keane MD 05/05/2017 4:32 AM CDT
--- NOTE | 2017-05-05 04:35 | US ---
EXAM DESCRIPTION: Venous,Lower Extremity RT CLINICAL HISTORY: 72 years, Male, pain swelling/right LE COMPARISON: None. TECHNIQUE: Duplex imaging of the deep venous system of the right lower extremity was performed. FINDINGS: The right common femoral, femoral, and popliteal veins demonstrate normal compression, augmentation and color flow without thrombus. The right peroneal and posterior tibial veins appear patent as well. Right lower extremity subcutaneous edema. IMPRESSION: No right lower extremity DVT. Electronically signed by: Buddy Keane MD 05/05/2017 4:34 AM CDT
[2017-05-05] MEDS ORDERED: VANCOMYCIN HCL INJ 1,000 MG in SODIUM CHLORIDE 0.9% 250ML 250 ML IVPB ONE (04:48)
[2017-05-05] MEDS ORDERED: VANCOMYCIN HCL INJ 1,000 MG VIAL IVPB ONE (04:52)
[2017-05-05] MEDS ORDERED: SODIUM CHLORIDE 0.9% 250ML 250 ML ONE (04:53)
[2017-05-05] MEDS ORDERED: MAGNESIUM SULFATE PREMIX 2GM 2 GM in PREMIX BAG 1 BAG IVPB ONE (05:21)
[2017-05-05] MEDS ORDERED: MAGNESIUM SULFATE PREMIX 2GM 50 ML IVPB ONE (07:01)
--- NOTE | 2017-05-05 08:43 | HP ---
SUPERVISING PHYSICIAN: Jai Alarcon MD CHIEF COMPLAINT: Respiratory distress. HISTORY OF PRESENT ILLNESS: Mr. Porras is a 72 year-old male patient that resides at [facility] where he was found to have a low 02 saturation, short of breath with a fever of 102 after EMS was called for increase in dyspnea. It was also noted that he had severe pain in his right lower extremity that was reddened and swollen. He had just recently been hospitalized for respiratory distress week previous at [facility] and just recently was discharged. In the Emergency Department he was found to be lethargic at which time ABGs were completed and showed there was a pH of 7.24, PC02 of 67, P02 of 75, bicarb 27. He was showing a 94% saturation on BiPAP. CBC showed a leukocytosis of 17,800 with a hemoglobin of 13.6 and hematocrit 43.7. Platelet count 191,000. Differential did show a left shift. Coagulation studies showed an elevated D-dimer of 1577 with a PT of 14.3 and PTT of 27.7. Chemistries showed he was having significant renal dysfunction with a creatinine of 2.49. His magnesium was low at 1.3 as well as showed an elevated BNP of 272. Lactic acid was normal at 1.5 as well as a C-reaction protein was slightly elevated at 1.8. Initial urinalysis showed 100 of protein , 100 of glucose with a small amount of blood. Otherwise, within normal limits. Chest x-ray in the Emergency Department showed findings of congestive heart failure with retrocardiac opacification from a secondary atelectasis or pneumonia. It was also found on examination that his right lower extremity from the knee was significantly edematous and reddened with evidence of cellulitis. Ultrasound was completed at that time to rule out DVT and per radiology interpretation there was no right lower extremity DVT noted. The patient does have a history of chronic atrial fibrillation and on Coumadin. Given the patient's significant hypoxemia along with findings concerning for pneumonia which is more likely a hospital acquired presentation with the patient having recently been in respiratory failure and treated at [facility] along with the developing cellulitis and leukocytosis, there were concerns for early sepsis process secondary to a pneumonia and the cellulitis. Therefore, the patient was to be admitted to the medical/surgical floor for further treatment and evaluation. Initially in the Emergency Department, he was started on Vancomycin 1000 mg, given 2 grams of magnesium. He was admitted in stable condition. PAST MEDICAL HISTORY: 1. Atrial fibrillation, chronic, on chronic anticoagulation therapy with Coumadin. 2. High blood pressure. 3. Chronic tobacco abuse. 4. History of stage IV chronic kidney disease. 5. Chronic obstructive pulmonary disease with chronic hypoxemia. 6. Multiple episodes of hospitalization secondary to pneumonia both in 2013 and 2013, 2017, 2018. 7. History of deep venous thrombosis in the left lower extremity. 8. History of cellulitis of both lower extremities. 9. 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 10. Obstructive sleep apnea on CPAP. PAST SURGICAL HISTORY: 1. Tonsillectomy. 2. Cholecystectomy. 3. Hemorrhoidectomy. 4. Amputation of multiple toes on both lower extremities secondary to frostbite. CURRENT MEDICATIONS: Please refer to updated list of medications from the nursing. There are verified in electronic medical records. Medications listed at time of admission included: 1. Prednisone 40 mg daily. 2. Warfarin 2 mg daily. 3. Potassium chloride extended release 20 mg daily. 4. Protonix 40 mg at breakfast. 5. Nitrostat 0.4 mg sublingual as needed. 6. Metoprolol 25 mg b.i.d.. 7. DuoNeb q.i.d. as needed. 8. [place] 7.5/325 1 tablet every 4 hours as needed. 9. Mucinex 10 mg daily. 10. Neurontin 300 mg t.i.d. 11. Cymbalta 60 mg at bedtime. 13. Potassium acetate 2 tablets 3 times a day. 14. Calcium supplement, again 600+ D3 600-400, 1 tablet daily. 15. Buspirone Hydrochloride 5 mg t.i.d. 16. Ascorbic acid 500 mg b.i.d. 17. Proventil nebs 2.5 mg every 6 hours as needed for wheezing or shortness of breath p.r.n. ALLERGIES: METFORMIN, NSAIDs AND CELEBREX. FAMILY HISTORY: Noncontributory. SOCIAL HISTORY: Mr. Porras lives at [facility]. He is a and served in the [employer]. He has a history of a 75 pack per year smoking history. The patient in the recent past was a heavy smoker. He denied any alcohol or illicit drug use. REVIEW OF SYSTEMS: Unobtainable secondary to patient's decreased responsiveness and being uncooperative. PHYSICAL EXAMINATION: VITAL SIGNS: T-max 102.3 in the Emergency Room with pulse of 119, saturation 90% on nasal cannula at 5 liters with blood pressure 119/60 with respirations in the 40s. After initiation of BiPAP, once again a treatment and admission to medical/surgical floor, temperature was down to 99.2, pulse 91, blood pressure 104/53, respirations 20, saturation 91 to 94% on BiPAP at 40% FI02. I&O: Positive balance of 120 with 370 in and 650 out. GENERAL: The patient is on BiPAP, minimally responsive but will open his eyes to loud noise. He verbalizes his current location. Cranial nerves II as able to be assessed grossly intact. Facial features appear to be symmetrical. Extraocular movements within normal limits. There is no notable nystagmus. On admission to the medical/surgical floor the patient showed to be comfortable on BiPAP, somewhat lethargic but responded to loud stimuli and answering questions appropriately. HEENT: Tympanic membranes clear. Bilateral oropharynx is pink with mucous membranes being dry. There are no lesions. NECK: Supple, non-tender with full range of motion. CHEST: Lung sounds were significantly decreased throughout without any notable rhonchi, wheezing or rales. HEART: Recovery Room without appreciable murmurs, rubs, or gallops. ABDOMEN: Obese, soft, non-tender, positive bowel sounds. EXTREMITIES: Right lower leg shows a large amount of erythema and edema up to 3 + extending from about mid leg to distal stump. No areas of consolidation or loculation indicating a localized abscess. There was no draining wound, no abrasions. Pulses were weak but palpable. Right leg is extensively swollen compared to the left. NEUROLOGIC: Once awake, he appears to be oriented to self. place and time with no reported neurological deficits. INTEGUMENT: Skin is warm and dry with notable big, crusty appearance to the stump of both feet where amputated toes were but no drainage noted. Laboratory showed a leukocytosis of 17,800 with hemoglobin 13.6, hematocrit 43.7 , platelet count 191,000, differential did show an early left shift. Coagulation studies showed an elevated PT of 14.3, D-dimer was elevated at 1577 with normal PTT of 27.7. Blood gas analysis showed a pH of 7.24 with a PC02 of 67, PO2 of 75, bicarb 27.8, saturation 94% on BiPAP. Chemistries showed a mild hyponatremia with sodium of 146, potassium 4.4, liver functions showed to be within normal limits. Creatinine 2.49, BUN 47. Lactic acid 1.5, troponin 0.05, BNP 272. Urinalysis showed 100 of protein, 100 of glucose with a small amount of blood. Microscopic within normal limits. MICROBIOLOGY: Two sets of blood cultures remain pending as well as two wound cultures of both lower extremities. RADIOLOGY: Venous studies showed no evidence of DVT. His arterial studies showed essentially minimal stenosis but a questionable inflow issue possibly iliac or aortic origin, possibly contributing to his underlying chronic stasis and poor wound healing. Chest x-ray in the Emergency Department per radiology interpretation showed findings of congestive heart failure with a retrocardiac opacification may be secondary to atelectasis or pneumonia. Venous and ultrasound Dopplers on the right lower extremity with no DVT demonstrated per radiology interpretation showed essentially normal velocities and patent vessels throughout the right lower extremity but monophasic wave pattern suggesting the possibility of inflow disease with right iliac vessels. ASSESSMENT: 1. Acute exacerbation of chronic obstructive pulmonary disease with hypercapnia/ hypoxemia respiratory failure requiring BiPap. 2. Respiratory acidosis without a compensation utilizing biPAP for respiratory assistance as noted in #1. 3. Right lower lobe pneumonia, likely health care acquired as patient has recently been in the hospital at [facility] and resides at [facility]. 4. History of obstructive sleep apnea utilizing CPAP and BiPAP. 5. Chronic kidney disease stage 4 with some exacerbation secondary to dehydration and prerenal azotemia state. 6. Chronic tobacco abuse. 7. Hypertension. 8. History of atrial fibrillation on chronic Coumadin therapy with a subtherapeutic Coumadin level and INR. 9. History of previous deep venous thrombosis to left lower extremity with right lower extremity showing to be without any evidence of a thrombus. 10. History of multiple episodes of pneumonia in the past, 2012, 2013 with hospitalizations including the last one being in the last 2 weeks at [facility]. 11. Obesity with noted body mass index of 36.8. 12. Right lower extremity cellulitis likely due to chronic stasis ulcers and advanced peripheral vascular disease with concerns for possible fungal infection as noted on the distal ends of both stumps of his feet with cultures having been collected and pending. PLAN: The patient is to be admitted to the medical/surgical floor for ongoing treatment of underlying health care acquired left lower lobe pneumonia. He was started on parenteral antibiotics to include Unasyn as well as vancomycin treatment for underlying cellulitis of right lower extremity. He is instructed to keep his leg elevated. Will plan to closely monitor his renal function given his degree of renal failure. He will be on BiPAP and FiO2 titrated down as he shows clinical improvement. Plan to repeat labs in the morning as well as ABG if needed considering his significant decreased responsiveness need for non-invasive ventilatory management.. Until discharge, we will continue to monitor him closely and treat appropriately. #[id number] #[id number] [facility]
[2017-05-05] MEDS ORDERED: ALBUTEROL SULFATE 2.5 MG/3 ML VIAL NEB PRN (09:29)
[2017-05-05] MEDS ORDERED: GLUCAGON INJ 1 MG VIAL SUBCU PRN (09:29)
[2017-05-05] MEDS ORDERED: ACETAMINOPHEN 325 MG TAB PO PRN (09:29)
[2017-05-05] MEDS ORDERED: DEXTROSE 50% 25 GM/50 ML SYG IV PRN (09:29)
[2017-05-05] MEDS ORDERED: VANCOMYCIN PER PHARMACY INJ SCH (10:00)
[2017-05-05] MEDS ORDERED: SODIUM CHLORIDE 0.9% 50ML 50 ML ONE ×4 (10:51→19:53)
[2017-05-05] MEDS ORDERED: PIPERACILLIN/TAZOBACTAM 2.25 GM VIAL IVPB ONE ×4 (10:51→19:53)
[2017-05-05] MEDS: IV SET AND CAP CHANGE INJ INJ SCH (11:09)
[2017-05-05] MEDS: SODIUM CHLORIDE 0.45% 1000ML 1,000 ML IVS PRN (11:11)
[2017-05-05] MEDS: PIPERACILLIN/TAZOBACTAM 2.25 GM in SODIUM CHLORIDE 0.9% 50ML 50 ML IVPB SCH ×3 (11:14→22:44)
[2017-05-05] MEDS: INSULIN LISPRO 100 UNITS/ML PEN SUBCU SCH ×2 (13:00→18:55)
--- NOTE | 2017-05-05 13:10 | US ---
EXAM DESCRIPTION: Extremity,Lower RT Arteries CLINICAL HISTORY: 72 years Male, RLE cellulitis COMPARISON: None. TECHNIQUE: Right lower extremity arterial duplex examination with grayscale, color Doppler, and spectral pulse Doppler evaluation. FINDINGS: Attenuation of the right lower extremity demonstrates essentially normal velocities throughout the right lower extremity from the common femoral through the superficial femoral popliteal and trifurcation vessels with normal velocities between 60 and 100 cm/s throughout. Mildly accelerated flow in the proximal SFA at 126 cm/s is noted. Most importantly the wave pattern suggest a monophasic wave pattern which is typically indicative of proximal stenosis in the possibility of inflow disease from the aorta or iliac vessels on the right should be considered. Correlation with a right lower extremity BENNY also recommended. IMPRESSION: Essentially normal velocities and patency of the vessels throughout the right lower extremity but monophasic wave pattern suggests the possibility of inflow disease within the aorta or right iliac vessels. Consider an BENNY and if symptomatic in the right lower extremity and MRA or CTA of the right lower extremity runoff vessels. Electronically signed by: Jai Godfrey MD 05/05/2017 1:09 PM CDT
[2017-05-05] MEDS: IPRATROPIUM/ALBUTEROL 3 ML VIAL INH SCH ×3 (13:35→20:19)
[2017-05-05] MEDS ORDERED: HYDROcodone 7.5MG/APAP 325MG 1 EA TAB PO PRN (19:10)
--- NOTE | 2017-05-05 19:14 | PCM.CORE ---
Physician DVT/VTE - Prophylaxis Currently: Patient already on anticoagulation therapy - Nurse DVT Assessment & Total Each Risk Factor Represents 3 Points: Medical PT with Hx of MD, CHF, Severe infection/sepsis Each Risk Factor Represents 2 Points: Age 60-74, Confined to bed >72 hours Each Risk Factor is 1 Point: Obesity (BMI >25) DVT Assessment Score: 8 - 5 or more Very High Risk Treatments: Early Ambulation *, Sequential Compression Device Pharmacological: Warfarin daily
[2017-05-05] MEDS ORDERED: DULoxetine HCL 30 MG CAP PO ONE (19:51)
[2017-05-05] MEDS: METOPROLOL TARTRATE 25 MG TAB PO SCH ×2 (20:45→21:00)
[2017-05-05] MEDS: GABAPENTIN 300 MG CAP PO SCH (20:46)
[2017-05-05] MEDS: guaiFENesin ER TAB 600 MG TAB PO SCH (20:46)
[2017-05-05] MEDS ORDERED: NON-FORMULARY MEDICATION 1 EA MIS (Duloxetine Hcl [Cymbalta] 60 MG) PO SCH (21:00)
[2017-05-05] MEDS ORDERED: busPIRone HCL 5 MG TAB PO SCH (21:00)
[2017-05-06] MEDS: INSULIN LISPRO 100 UNITS/ML PEN SUBCU SCH ×4 (00:11→20:52)
[2017-05-06] MEDS: SODIUM CHLORIDE 0.45% 1000ML 1,000 ML IVS PRN (00:48)
[2017-05-06] MEDS: PIPERACILLIN/TAZOBACTAM 2.25 GM in SODIUM CHLORIDE 0.9% 50ML 50 ML IVPB SCH ×5 (05:18→23:02)
[2017-05-06] MEDS: PANTOPRAZOLE SODIUM TAB 40 MG PO SCH (06:31)
[2017-05-06] MEDS: CALCIUM ACETATE PO SCH ×3 (06:31→16:11)
[2017-05-06] MEDS: IPRATROPIUM/ALBUTEROL 3 ML VIAL INH SCH ×4 (08:14→20:08)
--- NOTE | 2017-05-06 08:17 | RAD ---
EXAM DESCRIPTION: Chest,1 View CLINICAL HISTORY: Pneumonia COMPARISON: Portable chest 05/05/2017. TECHNIQUE: AP portable taken at 649 hours, upright position. FINDINGS: Decreasing consolidation bilaterally with residual interstitial densities bilaterally. Also thickening of the horizontal fissure on the right. Heart is not enlarged. Pulmonary vascularity is not increased. No pleural effusions.. IMPRESSION: Decreasing airspace infiltrate. Interstitial edema or infiltrate remains. Fluid in the horizontal fissure on the right. Electronically signed by: Everett Solis MD 05/06/2017 8:16 AM CDT
[2017-05-06] MEDS ORDERED: VANCOMYCIN HCL INJ 500 MG VIAL ONE (08:54)
[2017-05-06] MEDS ORDERED: SODIUM CHLORIDE 0.9% 250ML 250 ML ONE (08:54)
[2017-05-06] MEDS ORDERED: VANCOMYCIN HCL INJ 1,000 MG VIAL IVPB ONE (08:55)
[2017-05-06] MEDS: VANCOMYCIN HCL INJ 1,000 MG, VANCOMYCIN HCL INJ 250 MG in SODIUM CHLORIDE 0.9% 250ML 25... IVPB SCH (09:21)
[2017-05-06] MEDS: predniSONE 20 MG TAB PO SCH (09:23)
[2017-05-06] MEDS: guaiFENesin ER TAB 600 MG TAB PO SCH ×2 (09:23→20:39)
[2017-05-06] MEDS: GABAPENTIN 300 MG CAP PO SCH ×3 (09:23→20:39)
[2017-05-06] MEDS: POTASSIUM CHLORIDE 20 MEQ TAB PO SCH (09:23)
[2017-05-06] MEDS: FUROSEMIDE 40 MG TAB PO SCH (09:23)
[2017-05-06] MEDS ORDERED: DEX 5% W/NACL 0.45% 1000ML 1,000 ML IVS ONE (10:00)
[2017-05-06] MEDS ORDERED: PIPERACILLIN/TAZOBACTAM 2.25 GM VIAL IVPB ONE ×4 (10:48→19:22)
[2017-05-06] MEDS ORDERED: SODIUM CHLORIDE 0.9% 50ML 50 ML ONE ×4 (10:48→19:22)
[2017-05-06] MEDS: busPIRone HCL 5 MG TAB PO SCH ×2 (12:06→16:11)
[2017-05-06] MEDS: WARFARIN SODIUM 5 MG TAB PO SCH (12:06)
--- NOTE | 2017-05-06 13:37 | PN ---
SUPERVISING PHYSICIAN: Raymond Malhotra MD DATE: 05/06/17 SUBJECTIVE: The patient is sitting in his hospital bed. He complains of his lower legs hurting. Otherwise, no complaints of shortness of breath, chest pain , nausea, vomiting, diarrhea. OBJECTIVE: VITAL SIGNS: Afebrile. Heart rate 98. Blood pressure 113/63. Respiratory rate 22. It has been as high as 25. O2 saturation has been as low as 89% and is now 91%. RESPIRATORY: Diminished breath sounds throughout with a few scattered rhonchi. CARDIAC: Regular rate and rhythm. GASTROINTESTINAL: Obese. Abdomen is rounded. Bowel sounds are positive. Nontender. EXTREMITIES: Bilateral feet have all toes amputated. There is some fungal type growth along the previous incision line. Both feet are swollen, warm with +2 edema. There is no drainage or fluctuance. Pulses are very weak, but palpable. The right lower leg is much more swollen than the left leg with some venous stasis changes to the lower extremities. Both feet and legs are extremely tender to palpation. NEUROLOGIC: Awake, alert and oriented times three. LABORATORY: Sodium 141, potassium 4.9, carbon dioxide 106, BUN 56, creatinine 2.74 with a baseline creatinine between 2.5 and 3. Serum osmolality 298. C- reactive protein 1.8. WBCs have increased to 24,600 with a hemoglobin 11.7, hematocrit 37.9. INR 1.81. Preliminary wound cultures shows no growth after 24 hours. Preliminary blood cultures showed no growth after 24 hours. Chest x- ray shows decreasing airspace infiltrate, interstitial edema or infiltrate remains, fluid in the horizontal fissure on the right. All other labs and films have been reviewed via the EMR. ASSESSMENT: 1. Acute exacerbation of chronic obstructive pulmonary disease with hypercapnia/ hypoxemia respiratory failure requiring BiPAP. 2. Respiratory acidosis without compensation, utilizing BiPAP for respiratory assistance as noted in #1. 3. Right lower lobe pneumonia, likely health care acquired as patient has been in the hospital at [facility] and resides at [facility]. 4. History of obstructive sleep apnea utilizing CPAP and BiPAP. 5. Chronic kidney disease, stage 4, with some exacerbation secondary to dehydration and prerenal azotemia. 6. Chronic tobacco abuse. 7. Hypertension. 8. History of atrial fibrillation on chronic Coumadin therapy with a subtherapeutic Coumadin level and INR. 9. History of previous deep venous thrombosis to left lower extremity and right lower extremity without any evidence of a thrombus. 10. History of multiple episodes of pneumonia in the past even with recent hospitalizations [facility] within the last 2 weeks. 11. Obesity with noted body mass index of 36.6. 12. Right lower extremity cellulitis likely due to chronic stasis ulcers and advanced peripheral vascular disease with concerns for possible fungal infection as noted on the distal ends of both stumps of his feet with preliminary cultures showing no growth. PLAN: We will continue present supportive care. We will recheck his INR in the morning as it is still subtherapeutic and we will give him 5 mg of Coumadin today. I will also take an x-ray of his bilateral lower extremities to see if further testing needs to be done on his extremities plus we may need to do a scan. I am not sure why his WBCs are continuing to increase. I will also do another chest x-ray. We will monitor his cultures and continue him on his vancomycin and Zosyn. I may need to call Dr. Tenorio, infectious disease, tomorrow to help with his antibiotic therapy. I have given him 1 liter of fluids as he is slightly dehydrated. I encouraged good pulmonary hygiene. He will continue with his BiPAP. We will continue to monitor the patient closely and follow as needed. Dr. Malhotra is the collaborating physician and available for consultation. #[id number] [facility]
[2017-05-06] MEDS ORDERED: METOPROLOL TARTRATE 25 MG TAB ONE (14:56)
--- NOTE | 2017-05-06 15:02 | RAD ---
EXAM DESCRIPTION: Foot,Left 2 Views CLINICAL HISTORY: ?osteomyelitis foot pain COMPARISON: None. IMPRESSION: 2 views of the left foot show evidence of amputation of the toes and distal portion of the metatarsals. Mild bone hypertrophy and periosteal thickening around the distal portion of the metatarsals is seen without evidence of bone destructive changes. No evidence of fracture or dislocation. Small plantar enthesophyte of the calcaneus is seen. Electronically signed by: Jack Pichardo MD 05/06/2017 3:01 PM CDT
--- NOTE | 2017-05-06 15:05 | RAD ---
EXAM DESCRIPTION: Foot,Right 2 Views CLINICAL HISTORY: ?osteomyelitis foot pain COMPARISON: None. IMPRESSION: 3 views of the right foot show evidence of amputation of the toes and distal portion of the metatarsals. Callus formation and periosteal thickening of the resected distal metatarsals is noted without evidence of bone destructive changes or cortical lucency. Soft tissues show diffuse edema in the distal portion of the foot without obvious soft tissue defect or soft tissue emphysema. Moderate plantar enthesophyte of the calcaneus is seen. No fracture or dislocation is seen. Electronically signed by: Jack Pichardo MD 05/06/2017 3:04 PM CDT
[2017-05-06] MEDS: METOPROLOL TARTRATE 25 MG TAB PO SCH (16:12)
[2017-05-06] MEDS: DULoxetine HCL 30 MG CAP PO SCH (20:39)
[2017-05-07] MEDS: PIPERACILLIN/TAZOBACTAM 2.25 GM in SODIUM CHLORIDE 0.9% 50ML 50 ML IVPB SCH ×4 (05:22→22:58)
[2017-05-07] MEDS: busPIRone HCL 5 MG TAB PO SCH ×3 (06:18→16:30)
[2017-05-07] MEDS: PANTOPRAZOLE SODIUM TAB 40 MG PO SCH (06:19)
[2017-05-07] MEDS: CALCIUM ACETATE PO SCH ×3 (06:19→16:31)
[2017-05-07] MEDS: INSULIN LISPRO 100 UNITS/ML PEN SUBCU SCH ×4 (07:14→21:12)
--- NOTE | 2017-05-07 07:35 | RAD ---
EXAM DESCRIPTION: Chest,1 View CLINICAL HISTORY: 72 years Male, pna COMPARISON: Previous study May 06, 2017 TECHNIQUE: AP portable chest. FINDINGS: Heart size is increased with prominent central pulmonary vascularity. Near complete atelectasis of the right upper lobe has developed since the previous study. This may be related to mucus plugging. In addition, partial volume loss or patchy infiltrate is seen in the left lung base. This area appears similar to previous study. No pulmonary mass or worrisome nodule. No pneumothorax or pleural effusion. Bones are unremarkable. IMPRESSION: Right upper lobe atelectasis. Patchy infiltrate in the left lung base. Electronically signed by: Yvon Spanglre MD 05/07/2017 7:34 AM CDT
[2017-05-07] MEDS: IPRATROPIUM/ALBUTEROL 3 ML VIAL INH SCH ×4 (08:10→20:15)
[2017-05-07] MEDS: POTASSIUM CHLORIDE 20 MEQ TAB PO SCH (08:39)
[2017-05-07] MEDS: METOPROLOL TARTRATE 25 MG TAB PO SCH ×2 (08:40→17:39)
[2017-05-07] MEDS: FUROSEMIDE 40 MG TAB PO SCH (09:11)
[2017-05-07] MEDS: predniSONE 20 MG TAB PO SCH (09:11)
[2017-05-07] MEDS: guaiFENesin ER TAB 600 MG TAB PO SCH ×2 (09:11→21:11)
[2017-05-07] MEDS: GABAPENTIN 300 MG CAP PO SCH ×3 (09:11→21:11)
--- NOTE | 2017-05-07 11:05 | US ---
EXAM DESCRIPTION: Extremity,Lower LT Arteries CLINICAL HISTORY: 72 years Male, cellulitis COMPARISON: None. TECHNIQUE: 2-D grayscale and color arterial duplex Doppler analysis of the left lower extremity are obtained. FINDINGS: There is mild to moderate scattered calcified plaque throughout the arterial vasculature. Normal triphasic waveform flow from proximal to distal seen with no elevated velocities or arterial occlusion. IMPRESSION: [id number] atherosclerotic disease of the left lower extremity seen without ultrasound evidence of high-grade arterial stenosis or occlusion. Electronically signed by: Jack Pichardo MD 05/07/2017 11:05 AM CDT
[2017-05-07] MEDS ORDERED: WARFARIN SODIUM 2 MG TAB PO ONE (12:08)
[2017-05-07] MEDS ORDERED: SODIUM CHLORIDE 0.9% 50ML 50 ML ONE ×4 (12:10→19:55)
[2017-05-07] MEDS ORDERED: PIPERACILLIN/TAZOBACTAM 2.25 GM VIAL IVPB ONE ×4 (12:10→19:55)
[2017-05-07] MEDS: WARFARIN SODIUM 5 MG TAB PO SCH (12:20)
--- NOTE | 2017-05-07 13:34 | PN ---
SUPERVISING PHYSICIAN: Raymond Malhotra MD DATE: 05/07/17 SUBJECTIVE: The patient was reported unresponsive this morning for a few minutes. His blood sugar was 88. He did eventually wake up. I saw the patient shortly thereafter and he was somewhat lethargic, but could answer questions appropriately. Actually upon examination, the patient answered questions appropriately. He denied any chest pain, shortness of breath, nausea , vomiting or diarrhea. He did say his feet still continue to hurt. Other than that, he felt somewhat better. OBJECTIVE: VITAL SIGNS: Afebrile. Heart rate has been as high as 107 and is 91. Blood pressure is 106/67. Respiratory rate has been as high as 35. It also has been 27 and is now 16. O2 saturation during his episode this morning was in the low 80s. It is now 95%. RESPIRATORY: Distant breath sounds throughout all lung field with some scattered rhonchi. CARDIAC: Regular rate and rhythm. GASTROINTESTINAL: Abdomen is rounded. He is obese. Bowel sounds are positive. Nontender. EXTREMITIES: Bilateral lower extremities are somewhat edematous and erythematous. His right is much worse than the left. It is also more edematous than the left. His pulses are very faintly palpable. He does have some fungal looking tissue along the stump incision line. They are very tender to palpation. He has some venous stasis changes to the lower legs. His right lower foot is very warm although it is very marginally improved since yesterday. NEUROLOGIC: He is somewhat lethargic, but oriented times three. LABORATORY: White count is slightly improved to 22,000 with hemoglobin 10.7, hematocrit 34.3, platelet count 132, neutrophils 89.8%. INR 1.65. Blood sugars have run between 88 and 207. Sodium 143, potassium 4.9, chloride 106, carbon dioxide 27, BUN 65, creatinine 3.24. Serum osmolality 303.4. Wound cultures show no growth after 48 hours. His preliminary blood cultures show no growth after 48 hours. Chest x-ray shows right upper lobe atelectasis with a patchy infiltrate in the left lung base. Left lower extremity arterial Doppler shows mild to moderate atherosclerotic disease of the left lower extremity without ultrasound evidence of of high grade arterial stenosis or occlusion. Right lower extremity Doppler shows essentially normal velocities and patency of the vessel throughout the right lower extremity, but monophasic wave pattern suggests the possibility of inflow disease within the aorta of the right iliac vessels. Consider BENNY, MRA or CTA with runoff. 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 Soft tissue shows diffuse edema in the distal portion of the foot without obvious soft tissue defect or soft tissue emphysema. No fracture or dislocations is seen. 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 No evidence of fracture or dislocation. All other labs and films have been reviewed via the EMR. ASSESSMENT: 1. Right lower lobe pneumonia, likely healthcare acquired as the patient has been in the hospital at [facility] and resides at [facility], presently on Zosyn and vancomycin. 2. Acute exacerbation of chronic obstructive pulmonary disease with hypercapnic/ hypoxemic respiratory failure requiring BiPAP. 3. Right lower extremity cellulitis, likely due to chronic stasis ulcers and advanced peripheral vascular disease with concerns for a possible fungal infection noted in the distal ends of both stumps of his feet with his wound cultures showing no growth. 4. Respiratory acidosis on admission without compensation. He utilizes BiPAP for respiratory assistance. 5. History of obstructive sleep apnea utilizing CPAP and BiPAP. 6. Chronic kidney disease, stage 4, with somewhat worsening, may be secondary to dehydration and/or vancomycin administration. 7. Chronic tobacco abuse. 8. Hypertension. 9. History of atrial fibrillation on chronic Coumadin therapy with a subtherapeutic Coumadin level and INR. 10. History of previous deep venous thrombosis to left lower extremity and right lower extremity without any evidence of a thrombus. 11. History of multiple episodes of pneumonia in the past even with recent hospitalizations [facility] within the last 2 weeks. 12. Obesity with noted body mass index of 36.3. PLAN: We will continue present supportive care. At this point, he needs to remain on vancomycin and we will continue with the Zosyn. I contacted Dr. Tenorio , infectious disease, today and she will be out of the office until Thursday, but after a lengthy discussion with Dr. Russell Malhotra, we decided to continue with the present care. The patient will need several more days of IV antibiotic therapy. It may even been a consideration at some point that we will need to discharge him from the Acute Care setting and continue on Swing Bed admission for IV antibiotics therapy. I have given him 7 mg of Coumadin today. Hopefully, his INR will be therapeutic tomorrow. I will also repeat his labs. We will continue to monitor the patient closely and follow as needed. Dr. Malhotra is the collaborating physician and available for consultation. #[id number] [facility]
[2017-05-07] MEDS ORDERED: FUROSEMIDE INJ 40 MG/4 ML VIAL IV ONE (16:30)
[2017-05-07] MEDS ORDERED: VANCOMYCIN HCL INJ 500 MG VIAL ONE (20:53)
[2017-05-07] MEDS ORDERED: VANCOMYCIN HCL INJ 1,000 MG VIAL IVPB ONE (20:53)
[2017-05-07] MEDS ORDERED: SODIUM CHLORIDE 0.9% 250ML 250 ML ONE (20:53)
[2017-05-07] MEDS: VANCOMYCIN HCL INJ 1,000 MG, VANCOMYCIN HCL INJ 250 MG in SODIUM CHLORIDE 0.9% 250ML 25... IVPB SCH (21:00)
[2017-05-07] MEDS: SODIUM CHLORIDE 0.9% (FLUSH) 10 ML SYG IV PRN (21:11)
[2017-05-07] MEDS: DULoxetine HCL 30 MG CAP PO SCH (21:11)
[2017-05-08] MEDS: PIPERACILLIN/TAZOBACTAM 2.25 GM in SODIUM CHLORIDE 0.9% 50ML 50 ML IVPB SCH (05:13)
[2017-05-08] MEDS: busPIRone HCL 5 MG TAB PO SCH ×3 (06:20→17:02)
[2017-05-08] MEDS: PANTOPRAZOLE SODIUM TAB 40 MG PO SCH (06:20)
[2017-05-08] MEDS: CALCIUM ACETATE PO SCH ×3 (06:27→17:03)
[2017-05-08] MEDS: INSULIN LISPRO 100 UNITS/ML PEN SUBCU SCH ×4 (08:48→21:17)
[2017-05-08] MEDS: POTASSIUM CHLORIDE 20 MEQ TAB PO SCH (08:49)
[2017-05-08] MEDS: FUROSEMIDE 40 MG TAB PO SCH (08:50)
[2017-05-08] MEDS: predniSONE 20 MG TAB PO SCH (08:50)
[2017-05-08] MEDS: guaiFENesin ER TAB 600 MG TAB PO SCH ×2 (08:50→20:46)
[2017-05-08] MEDS: IV SET AND CAP CHANGE INJ INJ SCH (08:50)
[2017-05-08] MEDS: GABAPENTIN 300 MG CAP PO SCH ×3 (08:50→20:46)
[2017-05-08] MEDS: IPRATROPIUM/ALBUTEROL 3 ML VIAL INH SCH ×4 (08:50→20:00)
[2017-05-08] MEDS: METOPROLOL TARTRATE 25 MG TAB PO SCH ×2 (08:50→17:03)
[2017-05-08] MEDS ORDERED: SODIUM CHL 0.9% 50ML MIN-BAG+ 50 ML IVPB ONE ×2 (10:53→19:35)
[2017-05-08] MEDS ORDERED: MEROPENEM 1 GM VIAL IVPB ONE ×2 (10:54→19:36)
[2017-05-08] MEDS: MEROPENEM 1 GM in SODIUM CHL 0.9% 50ML MIN-BAG+ 50 ML IVPB SCH ×2 (11:00→22:54)
[2017-05-08] MEDS: NICOTINE PATCH 14 MG TD SCH (11:00)
[2017-05-08] MEDS: WARFARIN SODIUM 5 MG TAB PO SCH (11:00)
[2017-05-08] MEDS ORDERED: WARFARIN SODIUM 3 MG TAB PO ONE (11:14)
[2017-05-08] MEDS: BIFIDOBACTERIUM INFANTIS 4 MG CAP PO SCH ×2 (12:15→20:46)
--- NOTE | 2017-05-08 13:12 | PN ---
SUPERVISING PHYSICIAN: Buddy Gonzalez MD DATE: 05/08/17 SUBJECTIVE: The patient is lying in bed. He has no complaints of shortness of breath, nausea, vomiting, diarrhea. His foot hurts less than it has in the past several days, but the swelling continues and he requested a nicotine patch. We discussed at length his plan of care that includes discharging from the Acute Care setting and to continue with ten total days of IV antibiotics to hopefully decrease his frequent admissions. He agreed to staying for his IV antibiotic therapy. OBJECTIVE: VITAL SIGNS: Afebrile. Heart rate 72. Blood pressure 128/80. Respiratory rate 22. O2 saturation 97% on 4 liters nasal cannula. RESPIRATORY: Diminished breath sounds throughout, especially in the bases. A few scattered rhonchi. No wheezing noted. CARDIAC: Regular rate and rhythm. GASTROINTESTINAL: Obese. Abdomen is rounded. Bowel sounds are positive. Nontender. EXTREMITIES: His lower extremities continue to be swollen. The right lower leg is much less swollen than yesterday. There is no drainage or fluctuance. Left lower extremity is unchanged from yesterday. NEUROLOGIC: Awake, alert and oriented times three. LABORATORY: WBCs have improved to 17,000 with stable hemoglobin of 10.2 and hematocrit 32.1. Platelet count 125. Neutrophils 91.6%. Sodium 145, potassium 5.3, chloride 108, carbon dioxide 30, BUN 70, creatinine 3.34. Glucose has run between 112 and 207. Magnesium is 2.2. He had two blood gasses run yesterday that showed a PCO2 of 75 and 71 with PO2 of 63 and 64. His ABGs have run 7.2. Wound cultures and preliminary blood cultures show no growth after 72 hours. His left lower extremity arterial Doppler from yesterday shows mild to moderate atherosclerotic disease of the left lower extremity without ultrasound evidence of high-grade arterial stenosis or occlusion. All other labs and films have been reviewed via the EMR. ASSESSMENT: 1. Right lower lobe pneumonia, likely healthcare acquired as the patient has been in the hospital at [facility] [place] and resides at [facility], presently on Zosyn and vancomycin. 2. Acute exacerbation of chronic obstructive pulmonary disease with hypercapnic/ hypoxemic respiratory failure requiring BiPAP. 3. Right lower extremity cellulitis, likely due to chronic stasis ulcers and advanced peripheral vascular disease with concerns for a possible fungal infection noted in the distal ends of both stumps of his feet with his wound cultures showing no growth. 4. Respiratory acidosis on admission without compensation. He utilizes BiPAP for respiratory assistance. 5. History of obstructive sleep apnea utilizing CPAP and BiPAP. 6. Chronic kidney disease, stage 4, with somewhat worsening, may be secondary to dehydration and/or vancomycin administration. 7. Chronic tobacco abuse. 8. Hypertension. 9. History of atrial fibrillation on chronic Coumadin therapy with a subtherapeutic Coumadin level and INR. 10. History of previous deep venous thrombosis to left lower extremity and right lower extremity without any evidence of a thrombus. 11. History of multiple episodes of pneumonia in the past even with recent hospitalizations [facility] [place] within the last 2 weeks. 12. Obesity with noted body mass index of 36.3. PLAN: We will continue present supportive care. I have ordered a nicotine patch for him. It may be beneficial at some point to clarify his code status due to his chronic medical conditions that have poor outcomes. He agreed to stay in the hospital to be discharged from the Acute Care setting and readmitted to Swing Bed for IV antibiotics therapy. His INR was 2 today, so I will give him 6 mg of Coumadin today and recheck his INR tomorrow. Per recommendations of the pharmacist, we have stopped the Zosyn and we will start him on Merrem due to his worsening renal function. We will continue with the vancomycin. We will plan to admit him to Swing Bed tomorrow or the next day for his IV antibiotic therapy. We will need to try to get in touch with Dr. Tenorio, infectious disease, Thursday when she returns from vacation. I discussed his plan of care at length with his primary care physician, Dr. Collin Correia, and he agrees with the present plan. Dr. Gonzalez is the collaborating physician and available for consultation. #[id number] [facility]
[2017-05-08] MEDS: DULoxetine HCL 30 MG CAP PO SCH (20:46)
[2017-05-08] MEDS: SODIUM CHLORIDE 0.9% (FLUSH) 10 ML SYG IV PRN ×2 (20:48→22:53)
[2017-05-09] MEDS: PANTOPRAZOLE SODIUM TAB 40 MG PO SCH (06:31)
[2017-05-09] MEDS: busPIRone HCL 5 MG TAB PO SCH ×3 (06:31→17:19)
[2017-05-09] MEDS: CALCIUM ACETATE PO SCH ×3 (07:12→16:32)
[2017-05-09] MEDS: IPRATROPIUM/ALBUTEROL 3 ML VIAL INH SCH ×4 (07:24→19:40)
[2017-05-09] MEDS: INSULIN LISPRO 100 UNITS/ML PEN SUBCU SCH ×4 (07:34→21:10)
[2017-05-09] MEDS ORDERED: VANCOMYCIN HCL INJ 500 MG VIAL ONE (07:37)
[2017-05-09] MEDS ORDERED: SODIUM CHLORIDE 0.9% 250ML 250 ML ONE (07:38)
[2017-05-09] MEDS ORDERED: VANCOMYCIN HCL INJ 1,000 MG VIAL IVPB ONE (07:39)
[2017-05-09] MEDS: METOPROLOL TARTRATE 25 MG TAB PO SCH ×2 (07:46→17:19)
[2017-05-09] MEDS: BIFIDOBACTERIUM INFANTIS 4 MG CAP PO SCH ×2 (09:10→20:36)
[2017-05-09] MEDS: predniSONE 20 MG TAB PO SCH (09:10)
[2017-05-09] MEDS: FUROSEMIDE 40 MG TAB PO SCH (09:10)
[2017-05-09] MEDS: GABAPENTIN 300 MG CAP PO SCH ×3 (09:10→20:36)
[2017-05-09] MEDS: guaiFENesin ER TAB 600 MG TAB PO SCH ×2 (09:10→20:36)
[2017-05-09] MEDS: NICOTINE PATCH 14 MG TD SCH (09:10)
[2017-05-09] MEDS: VANCOMYCIN HCL INJ 1,000 MG, VANCOMYCIN HCL INJ 250 MG in SODIUM CHLORIDE 0.9% 250ML 25... IVPB SCH (09:11)
[2017-05-09] MEDS ORDERED: MEROPENEM 1 GM VIAL IVPB ONE ×2 (11:03→19:01)
[2017-05-09] MEDS ORDERED: SODIUM CHL 0.9% 50ML MIN-BAG+ 50 ML IVPB ONE ×2 (11:03→19:00)
[2017-05-09] MEDS: SODIUM CHLORIDE 0.9% (FLUSH) 10 ML SYG IV PRN ×3 (11:31→22:37)
[2017-05-09] MEDS: MEROPENEM 1 GM in SODIUM CHL 0.9% 50ML MIN-BAG+ 50 ML IVPB SCH ×2 (11:32→22:37)
--- NOTE | 2017-05-09 14:50 | PN ---
DATE: 05/09/17 SUPERVISING PHYSICIAN: Buddy Gonzalez M.D. SUBJECTIVE: The patient is lying in his hospital bed. He is asleep. He awakens easily. He has no complaints of shortness of breath, nausea, vomiting, diarrhea or constipation. No chest pain. He does say his feet continue to hurt but they continue to improve. OBJECTIVE: VITAL SIGNS: He is afebrile, heart rate 93, blood pressure 142/90, respiratory rate 20. It has been as high as 24. O2 sat is 93% on 4 liters nasal cannula. He does wear BiPAP at night. RESPIRATORY: Diminished breath sounds throughout, especially at the bases. No wheezing noted. CARDIAC: Regular rate, slightly irregular rhythm with distant heart sounds. GASTROINTESTINAL: He is obese. Abdomen is rounded. It is soft, nondistended, non-tender. Bowel sounds are positive. EXTREMITIES: Continue to have the erythema and swelling in his lower extremities. The right is much worse than the left. It continues to improve daily. It is tender to palpation. Pedal pulses are +1 and palpable. There is no drainage or new lesions noted. NEUROLOGIC: He is awake, alert and oriented times three. LABORATORY: Sodium 144, potassium 4.9, chloride 106, carbon dioxide 29. BUN 74 , creatinine 3.32, serum osmolality 308, magnesium 2. WBCs have improved greatly to 11.5 with hemoglobin and hematocrit that are stable at 10.4 and 32.8. Platelets 143. Preliminary blood cultures show no growth after 4 days. All other labs and films have been reviewed via the EMR. ASSESSMENT: 1. Right lower lobe pneumonia, likely healthcare acquired as the patient has been in the hospital at [facility] and resides at [facility], presently on Merrem and vancomycin. 2. Acute exacerbation of chronic obstructive pulmonary disease with hypercapnic/ hypoxemic respiratory failure requiring BiPAP. 3. Right lower extremity cellulitis, likely due to chronic stasis ulcers and advanced peripheral vascular disease with concerns for a possible fungal infection noted in the distal ends of both stumps of his feet with his wound cultures showing no growth. 4. Respiratory acidosis on admission without compensation. He utilizes BiPAP for respiratory assistance. 5. History of obstructive sleep apnea utilizing CPAP and BiPAP. 6. Chronic kidney disease, stage 4, with somewhat worsening, may be secondary to dehydration and/or vancomycin administration. 7. Chronic tobacco abuse. 8. Hypertension. 9. History of atrial fibrillation on chronic Coumadin therapy with a supratherapeutic INR of >4. 10. History of previous deep venous thrombosis to left lower extremity and right lower extremity without any evidence of a thrombus. 11. History of multiple episodes of pneumonia in the past even with recent hospitalizations [facility] within the last 2 weeks. 12. Obesity with noted body mass index of 36.3. PLAN: We will continue present supportive care. The patient is clinically improving daily and I believe that we need to discharge him from the Acute Care setting to Swing Bed admission in the next couple of days. I am going to make sure that his white count stabilizes as well as his kidney function as his cultures have shown no growth, but most likely because he had previous antibiotic use. I was unable to touch base with Dr. Tenorio, Infectious Diseases specialist in [place] due to her being out of the office. It may be beneficial to contact her on Thursday, but I expect that we will discharge him tomorrow or Thursday from Acute Care to Swing Bed. I have ordered lab for in the morning as well as a chest x-ray. Will continue to monitor him closely and follow as needed. Dr. Gonzalez is the collaborating physician available for consultation. #[id number] [facility]
[2017-05-09] MEDS: DULoxetine HCL 30 MG CAP PO SCH (20:36)
[2017-05-10] MEDS: busPIRone HCL 5 MG TAB PO SCH ×3 (06:12→17:24)
[2017-05-10] MEDS: PANTOPRAZOLE SODIUM TAB 40 MG PO SCH (06:12)
[2017-05-10] MEDS: CALCIUM ACETATE PO SCH ×3 (06:12→16:56)
[2017-05-10] MEDS: POTASSIUM CHLORIDE 20 MEQ TAB PO SCH (07:33)
[2017-05-10] MEDS: METOPROLOL TARTRATE 25 MG TAB PO SCH ×2 (07:33→17:45)
[2017-05-10] MEDS: INSULIN LISPRO 100 UNITS/ML PEN SUBCU SCH ×4 (07:34→21:30)
[2017-05-10] MEDS: IPRATROPIUM/ALBUTEROL 3 ML VIAL INH SCH ×4 (07:58→20:09)
--- NOTE | 2017-05-10 08:14 | RAD ---
Procedure: XR CHEST 1 VIEW Exam Date: 05/10/2017 5:00 AM CDT Ordering Provider: CHAD PANG Clinical Indication: copd Comparison: None Findings: There is bilateral perihilar groundglass opacification. No significant pleural effusion or pneumothorax is present. Size is upper limits of normal. Impression: Bilateral perihilar extensive groundglass opacification possibly from pulmonary edema, atypical infectious process, or interstitial lung disease. Electronically signed by: Shan Nicholson MD 05/10/2017 8:13 AM CDT
[2017-05-10] MEDS ORDERED: POTASSIUM CHLORIDE 20 MEQ TAB ONE (08:31)
[2017-05-10] MEDS: predniSONE 20 MG TAB PO SCH (08:34)
[2017-05-10] MEDS: BIFIDOBACTERIUM INFANTIS 4 MG CAP PO SCH ×2 (08:34→20:42)
[2017-05-10] MEDS: NICOTINE PATCH 14 MG TD SCH (08:35)
[2017-05-10] MEDS: FUROSEMIDE 40 MG TAB PO SCH (08:35)
[2017-05-10] MEDS: GABAPENTIN 300 MG CAP PO SCH ×3 (08:35→20:42)
[2017-05-10] MEDS: guaiFENesin ER TAB 600 MG TAB PO SCH (09:08)
[2017-05-10] MEDS ORDERED: SODIUM CHL 0.9% 50ML MIN-BAG+ 50 ML IVPB ONE ×2 (11:33→19:52)
[2017-05-10] MEDS ORDERED: MEROPENEM 1 GM VIAL IVPB ONE ×2 (11:33→19:53)
[2017-05-10] MEDS: MEROPENEM 1 GM in SODIUM CHL 0.9% 50ML MIN-BAG+ 50 ML IVPB SCH ×2 (11:36→23:10)
[2017-05-10] MEDS: guaiFENesin 100 MG/5 ML 10 ML UD PO SCH ×3 (13:53→20:41)
--- NOTE | 2017-05-10 14:13 | PN ---
DATE: 05/10/17 SUPERVISING PHYSICIAN: Buddy Gonzalez M.D. SUBJECTIVE: The patient is asleep in his hospital bed. He awakens easily. Has no complaints of shortness of breath, nausea, vomiting, diarrhea or chest pain. He feels like the nicotine patch is helping. His foot feels much improved. We discussed his discharge from the Acute Care setting to Swing Bed for IV antibiotic administration and again he agreed. OBJECTIVE: VITAL SIGNS: He is afebrile, heart rate 64, blood pressure 135/78, respiratory rate 20, O2 sat is 91%. RESPIRATORY: Diminished breath sounds throughout. No wheezing, rhonchi or crackles. CARDIAC: Regular rate and rhythm. EXTREMITIES: Left lower extremity is unchanged from previous examinations. His right lower extremity continues to be erythematous and edematous but continues to improve daily. NEUROLOGIC: He is awake, alert and oriented times three. LABORATORY: Electrolytes are basically within normal limits. BUN and creatinine have improved to 69 and 2.93. Magnesium 2. WBCs have normalized to 7.5 with a stable hemoglobin and hematocrit at 10.7 and 35.3. Coumadin was held yesterday but his INR is elevated today at 4.74. RADIOLOGY: Chest x-ray per radiology interpretation shows bilateral perihilar extensive ground glass opacifications possibly from pulmonary edema, atypical infectious process, or interstitial lung disease. All other labs and films have been reviewed via the EMR. ASSESSMENT: 1. Right lower lobe pneumonia, likely healthcare acquired as the patient has been in the hospital at [facility] and resides at [facility], presently on Merrem and vancomycin. 2. Acute exacerbation of chronic obstructive pulmonary disease with hypercapnic/ hypoxemic respiratory failure requiring BiPAP. 3. Right lower extremity cellulitis, likely due to chronic stasis ulcers and advanced peripheral vascular disease with concerns for a possible fungal infection noted in the distal ends of both stumps of his feet with his wound cultures showing no growth. 4. Respiratory acidosis on admission without compensation. He utilizes BiPAP for respiratory assistance. 5. History of obstructive sleep apnea utilizing CPAP and BiPAP. 6. Chronic kidney disease, stage 4, with somewhat worsening, may be secondary to dehydration and/or vancomycin administration. 7. Chronic tobacco abuse. 8. Hypertension. 9. History of atrial fibrillation on chronic Coumadin therapy with a supratherapeutic INR of >4. 10. History of previous deep venous thrombosis to left lower extremity and right lower extremity without any evidence of a thrombus. 11. History of multiple episodes of pneumonia in the past even with recent hospitalizations [facility] within the last 2 weeks. 12. Obesity with noted body mass index of 36.3. PLAN: We will continue present supportive care. Initially had planned to discharge him from the Acute Care setting to Swing Bed for administration of IV antibiotics, but I was asked to wait until tomorrow so they can review his Swing Bed days per his insurance. I have actually discontinued his Coumadin given the fact that his INR has been elevated and will do daily INRs until he reaches a therapeutic level and we can restart it. When he is discharged from the Acute Care setting to Swing Bed, he will need to check those. He continues to improve clinically. We will continue to monitor him closely and follow as needed. Dr. Gonzalez is the collaborating physician available for consultation. #[id number] [facility]
[2017-05-10] MEDS ORDERED: VANCOMYCIN HCL INJ 500 MG VIAL ONE (19:51)
[2017-05-10] MEDS ORDERED: SODIUM CHLORIDE 0.9% 250ML 0 ML ONE (19:52)
[2017-05-10] MEDS ORDERED: VANCOMYCIN HCL INJ 1,000 MG VIAL IVPB ONE (19:53)
[2017-05-10] MEDS: DULoxetine HCL 30 MG CAP PO SCH (20:41)
[2017-05-10] MEDS: SODIUM CHLORIDE 0.9% (FLUSH) 10 ML SYG IV PRN ×2 (20:42→23:10)
[2017-05-11] MEDS: busPIRone HCL 5 MG TAB PO SCH ×3 (06:24→16:30)
[2017-05-11] MEDS: CALCIUM ACETATE PO SCH ×3 (06:24→16:30)
[2017-05-11] MEDS: PANTOPRAZOLE SODIUM TAB 40 MG PO SCH (06:25)
[2017-05-11] MEDS ORDERED: POTASSIUM CHLORIDE 20 MEQ TAB ONE (07:18)
[2017-05-11] MEDS: INSULIN LISPRO 100 UNITS/ML PEN SUBCU SCH ×4 (07:32→21:00)
[2017-05-11] MEDS: IPRATROPIUM/ALBUTEROL 3 ML VIAL INH SCH ×4 (08:08→22:32)
[2017-05-11] MEDS ORDERED: VANCOMYCIN HCL INJ 1,000 MG, VANCOMYCIN HCL INJ 250 MG in SODIUM CHLORIDE 0.9% 250ML 25... IVPB SCH (09:00)
[2017-05-11] MEDS ORDERED: SODIUM CHLORIDE 0.9% 250ML 250 ML ONE (09:36)
[2017-05-11] MEDS ORDERED: VANCOMYCIN HCL INJ 500 MG VIAL ONE (09:36)
[2017-05-11] MEDS ORDERED: VANCOMYCIN HCL INJ 1,000 MG VIAL IVPB ONE (09:36)
[2017-05-11] MEDS: SODIUM CHLORIDE 0.45% 1000ML 1,000 ML IVS PRN (09:55)
[2017-05-11] MEDS: GABAPENTIN 300 MG CAP PO SCH ×3 (10:16→21:23)
[2017-05-11] MEDS: guaiFENesin 100 MG/5 ML 10 ML UD PO SCH ×4 (10:16→21:24)
[2017-05-11] MEDS: FUROSEMIDE 40 MG TAB PO SCH (10:16)
[2017-05-11] MEDS: METOPROLOL TARTRATE 25 MG TAB PO SCH ×2 (10:17→17:00)
[2017-05-11] MEDS: POTASSIUM CHLORIDE 20 MEQ TAB PO SCH (10:17)
[2017-05-11] MEDS: predniSONE 20 MG TAB PO SCH (10:17)
[2017-05-11] MEDS: BIFIDOBACTERIUM INFANTIS 4 MG CAP PO SCH ×2 (10:18→21:23)
[2017-05-11] MEDS: NICOTINE PATCH 14 MG TD SCH (10:18)
[2017-05-11] MEDS: IV SET AND CAP CHANGE INJ INJ SCH (10:30)
[2017-05-11] MEDS ORDERED: MEROPENEM 1 GM VIAL IVPB ONE ×2 (11:42→19:37)
[2017-05-11] MEDS ORDERED: SODIUM CHL 0.9% 50ML MIN-BAG+ 50 ML IVPB ONE ×2 (11:42→19:37)
[2017-05-11] MEDS: MEROPENEM 1 GM in SODIUM CHL 0.9% 50ML MIN-BAG+ 50 ML IVPB SCH ×2 (12:27→22:30)
--- NOTE | 2017-05-11 12:28 | CT ---
EXAM DESCRIPTION: Head: Computed Tomography. CLINICAL HISTORY: acute onset expressive aphasia COMPARISON: CT scan of the head noncontrast 01/11/2017. TECHNIQUE: Non-helical axial scans through the skull and brain, at 2.5 intervals, non-contrast. 2.0 reconstructions. Total Exam DLP: 859.97 mGy-cm. This exam was performed according to our departmental dose-optimization program which includes automated exposure control, adjustment of the mA and/or kV according to patient size and/or use of iterative reconstruction technique; to reduce radiation dose to as low as reasonably achievable (ALARA). FINDINGS: No hemorrhage, no mass-effect, and no midline shift. Minimal periventricular white matter low-density in the frontal lobes and the hager radiata. Density not quite as low in the bilateral occipital lobes. Stable since the prior study. Bilateral calcifications in the basal ganglia are stable. Vascular calcifications anterior and posterior circulations; physiologic calcifications in the pineal gland and choroid plexus. No effacement or displacement of the ventricles, CSF spaces, or subdural spaces. Bases are age-related. No extra axial fluid collection or hemorrhage. No gross abnormalities of the bony calvarium. Included paranasal sinuses and mastoid air cells are well - aerated. IMPRESSION: 1. No hemorrhage, no mass effect, no midline shift. Periventricular leukomalacia more prominent in the frontal lobes and in the occipital lobes. Most likely related to cerebral microvascular disease. Stable since the prior study. 2. CT scans are insensitive for detecting small CVAs in the first 24 hours after onset. Evaluation of the brain stem is also limited. If symptoms persist, consider MRI scan of the brain with diffusion imaging. Electronically signed by: Everett Solis MD 05/11/2017 12:27 PM CDT
--- NOTE | 2017-05-11 14:52 | US ---
EXAM DESCRIPTION: Carotid Duplex CLINICAL HISTORY: expressive aphasia - ? TIA COMPARISON: None Available. TECHNIQUE: Carotid Doppler ultrasound FINDINGS: Carotid Doppler ultrasound is normal. There is no plaque formation. Presystolic velocity right ICA 89 cm a second. Peak systolic velocity left ICA 60 cm a second. All duplex waveforms and flow velocities are within normal limits on both sides. Both vertebrals are patent with antegrade flow. IMPRESSION: Normal Electronically signed by: Randy Lopez MD 05/11/2017 2:51 PM CDT
--- NOTE | 2017-05-11 17:36 | PN ---
DATE: 05/11/17 SUPERVISING PHYSICIAN: Jai Alarcon M.D. SUBJECTIVE: The patient this morning is alert, but when he woke up he was having some issues with some expressive aphasia-like symptoms which were very transient. He denied any chest pains, palpitations or shortness of breath. He was alert and oriented and showed no other neurological deficits. He was in no acute distress. OBJECTIVE: VITAL SIGNS: He remains afebrile, temperature 98.2, pulse 70, blood pressure 143/65, respirations 20, satting 93% on nasal cannula at 4 liters at rest. I's and O's show a balance of -874 with 1026 in, 1900 out. Weight is 124.2 kg which is actually down from admission initially of 126.9 kg. CHEST: Lungs are just slightly diminished towards the bases but no rhonchi, wheezing or rales are noted. HEART: Slightly irregular rate and rhythm. ABDOMEN: Obese but soft, non-tender. Positive bowel sounds. EXTREMITIES: Right lower extremity shows no edema but continues with some mild erythema, but is much improved since admission. NEUROLOGIC: He is alert and oriented times three with some mild expressive aphasia which was very transient. Facial features were symmetrical. Extraocular movements are within normal limits. There was no notable nystagmus. Cranial nerves II-XII are grossly intact. There was no other obvious neurological lateralizing or focalizing neurologic deficits. He was alert and oriented times three. LABORATORY: White count 8,500, hemoglobin 11.5, hematocrit 35.9, platelet count 171,000. Differential shows continued left shift. Coagulation studies today showed an INR at 3.35 compared to 4.74 yesterday. Chemistries today showed an elevated sodium up to 150 with normal chloride, potassium 4.7, BUN 64 , creatinine 2.58. Blood sugars range from 72 to 142. Osmolality showed to be elevated at 316. Calcium was normal at 9.2, magnesium was normal at 2.1. Liver functions all showed to be within normal limits. MICROBIOLOGY: Blood cultures remain negative after 5 days. Wound culture on right and left foot shows no growth. RADIOLOGY: CT of the head without contrast and carotid artery studies are pending. ASSESSMENT: 1. Right lower lobe pneumonia, likely healthcare acquired as the patient has been in the hospital at [facility] and resides at [facility], currently on Merrem and vancomycin with anticipation of a total course of 14 days. 2. Acute exacerbation of chronic obstructive pulmonary disease with hypercapnic/ hypoxemic respiratory failure without compensation utilizing chronic BiPAP but improving and tolerating nasal cannula since admission. 3. Right lower extremity cellulitis, likely due to chronic stasis ulcers and advanced peripheral vascular disease with concerns for a possible fungal infection noted in the distal ends of both stumps of his feet with his wound cultures showing no growth currently. 4. Questionable transient ischemic attack with the patient having a mild expressive aphasia with CT of the head and carotid studies pending. 5. History of obstructive sleep apnea utilizing CPAP. 6. Respiratory acidosis, chronic on admission showing to be without any compensation as he utilizes BiPAP on a chronic basis. 7. Chronic kidney disease, stage 4, with some improvement with fluids but with the patient having been previously on vancomycin. 8. Chronic tobacco abuse. 9. Hypertension. 10. Electrolyte imbalance with hypernatremia possibly contributing to some of his neurologic changes this morning felt to be secondary to aggressive diuresis with the patient showing an elevated osmolality requiring initiation of IV fluids. 11. History of atrial fibrillation on chronic Coumadin therapy with a supratherapeutic INR previously showing some improvement as Coumadin is being held and plans to initiate tomorrow morning. 12. History of previous deep venous thrombosis to left lower extremity and right lower extremity without any evidence of a thrombus. 13. History of multiple episodes of pneumonia in the past with recent hospitalizations [facility] within the last 2 weeks. 14. Obesity with body mass index of 36.3. PLAN: Will await further studies with a CT without contrast and the carotids to further assess the possibility of recent acute TIA, although the patient's symptoms have resolved spontaneously with no residual effects noted. He will continue on Meropenem and vancomycin with the patient having at least a total course of 14 day treatment for both underlying healthcare acquired pneumonia and the right lower extremity cellulitis. Will recheck his INR in the morning and if more therapeutic, will resume his Coumadin. Will anticipate hopefully being able to discharge back to [facility] tomorrow to continue with IV antibiotics including vancomycin and Meropenem. Until discharge, he will continue to be monitored closely and treated appropriately. #[id number] [facility]
[2017-05-11] MEDS: DULoxetine HCL 30 MG CAP PO SCH (21:23)
[2017-05-12] MEDS: SODIUM CHLORIDE 0.45% 1000ML 1,000 ML IVS PRN (01:29)
[2017-05-12] MEDS: busPIRone HCL 5 MG TAB PO SCH ×2 (06:25→10:33)
[2017-05-12] MEDS: PANTOPRAZOLE SODIUM TAB 40 MG PO SCH (06:25)
[2017-05-12] MEDS ORDERED: POTASSIUM CHLORIDE 20 MEQ TAB ONE (07:30)
[2017-05-12] MEDS: IPRATROPIUM/ALBUTEROL 3 ML VIAL INH SCH ×2 (07:40→12:01)
[2017-05-12] MEDS: CALCIUM ACETATE PO SCH ×2 (08:46→11:56)
[2017-05-12] MEDS: INSULIN LISPRO 100 UNITS/ML PEN SUBCU SCH ×2 (08:46→11:54)
[2017-05-12] MEDS: POTASSIUM CHLORIDE 20 MEQ TAB PO SCH (08:49)
[2017-05-12] MEDS: FUROSEMIDE 40 MG TAB PO SCH (08:49)
[2017-05-12] MEDS: METOPROLOL TARTRATE 25 MG TAB PO SCH (08:49)
[2017-05-12] MEDS: NICOTINE PATCH 14 MG TD SCH (08:49)
[2017-05-12] MEDS: guaiFENesin 100 MG/5 ML 10 ML UD PO SCH (08:49)
[2017-05-12] MEDS: predniSONE 20 MG TAB PO SCH (08:49)
[2017-05-12] MEDS: GABAPENTIN 300 MG CAP PO SCH (08:49)
[2017-05-12] MEDS: BIFIDOBACTERIUM INFANTIS 4 MG CAP PO SCH (08:49)
[2017-05-12] MEDS ORDERED: NON-FORMULARY MEDICATION 1 EA MIS (Fluticasone Furoate-Vilanterol [Breo Ellipta 200-25 Mcg INH SCH (09:00)
[2017-05-12 10:23] VITALS: BP 163/85; TEMP 97.7
[2017-05-12] MEDS: POLYETHYLENE GLYCOL 3350 17 GM PCKT PO SCH ×2 (10:25→10:45)
[2017-05-12] MEDS ORDERED: SODIUM CHL 0.9% 50ML MIN-BAG+ 50 ML IVPB ONE (10:29)
[2017-05-12] MEDS ORDERED: MEROPENEM 1 GM VIAL IVPB ONE (10:30)
[2017-05-12] MEDS: MEROPENEM 1 GM in SODIUM CHL 0.9% 50ML MIN-BAG+ 50 ML IVPB SCH (10:33)
[2017-05-12] MEDS ORDERED: WARFARIN SODIUM 5 MG TAB PO SCH (12:00)
[2017-05-12 12:02] VITALS: O2SAT 97
--- NOTE | 2017-05-17 20:50 | DS ---
SUPERVISING PHYSICIAN: Jai Alarcon M.D. DISCHARGE DIAGNOSIS: 1. Right lower lobe pneumonia healthcare acquired with the patient having been previously in the hospital at [facility] and currently residing at [facility] having been on Merrem and vancomycin during hospitalization showing good response requiring completion of course of 14 days at discharge. 2. Acute exacerbation of chronic obstructive pulmonary disease with hypercapnic/ hypoxemic respiratory failure without compensation utilizing chronic BiPAP and improving and tolerating nasal cannula prior to discharge. 3. Right lower extremity cellulitis due to chronic stasis ulcers and advanced peripheral vascular disease with culture results showing no growth at current discharge. 4. Questionable transient ischemic attack with the patient having a mild expressive aphasia with CT of the head and carotid studies showing no significant findings with the patient's symptoms resolving prior to discharge. 5. History of obstructive sleep apnea utilizing CPAP and BiPAP. 6. Respiratory acidosis, chronic on admission showing to be without any compensation as he utilizes BiPAP on a chronic basis. 7. Chronic kidney disease, stage 4, with some improvement with IV fluids with the patient continuing to be on vancomycin prior to discharge. 8. Chronic tobacco abuse. 9. Hypertension. 10. Electrolyte imbalance with hypernatremia possibly contributing to some of his neurologic changes secondary to aggressive diuresis but showing elevated osmolality requiring initiation of IV fluids, improving prior to discharge. 11. History of atrial fibrillation on chronic Coumadin therapy with a supratherapeutic INR previously showing improvement on Coumadin as it was held and more therapeutic at discharge with the patient having a controlled ventricular rate. 12. History of previous deep venous thrombosis to left lower extremity and right lower extremity without any evidence of a thrombus on current admission or ultrasound. 13. History of multiple episodes of pneumonia in the past with recent hospitalization at [facility] prior to this admission within the last 2 weeks. 14. Obesity with body mass index of 36.3. REASON FOR HOSPITALIZATION: Mr. Porras is a 72 year-old male patient that resides at [facility]. On 05/05/17, he was found to have a low 02 saturation, shortness of breath with a fever of 102. After EMS was called, it was noted he had increased dyspnea. It was also noted that he had severe pain in his right lower extremity that had started to become reddened and swollen. He had just recently been hospitalized for respiratory distress a week previous at [facility] and just had been discharged. In the Emergency Department today he was found to be lethargic at which time his ABGs showed there was a pH of 7.24, PC02 of 67, P02 of 75, bicarb 27. He was satting 94% on BiPAP. He had a leukocytosis of 17, 800. Chemistries show a significant worsening renal dysfunction with creatinine 2.49 with a low magnesium at 1.3 and elevated BNP of 272. Lactic acid was within normal limits with C reactive protein showing to be slightly elevated. Chest x-ray in the Emergency Department suggested findings of congestive heart failure with retrocardiac opacification from a secondary atelectasis or pneumonia. It was also found on examination that the right lower extremity from the knee was significantly edematous and reddened with evidence of cellulitis. Ultrasound was completed to rule out DVT and per radiology interpretation there was no right lower extremity DVT noted. The patient does have a history of chronic atrial fibrillation on Coumadin. Given the patient's significant hypoxemia along with findings concerning for pneumonia which is more likely a hospital acquired presentation and the patient having recently been in respiratory failure and treated at [facility] and developing cellulitis and leukocytosis, there were concerns for early sepsis process secondary to a pneumonia and the cellulitis. The patient was then admitted to the medical/surgical floor for further treatment and evaluation. He was started on Vancomycin initially 1000 mg along with 2 grams of magnesium prior to admission. He was admitted in stable condition. LABORATORY STUDIES: Initial white count on admission was 17,800. It did go up to a maximum of 24,600 and prior to discharge it normalized down to 7,500. Hemoglobin and hematocrit stabilized, at discharge was 10.7 and 33.5 with platelet count of 155,000. Differential did show a left leg shift initially on admission as well as bands increased at 19% which had resolved prior to discharge. Coagulation studies initially showed he was subtherapeutic with an INR of 1.65. After reinitiation of his Coumadin level, he became supratherapeutic with an INR of 4.7 but after further management at discharge his INR had normalized and was therapeutic at 2.47 prior to that. His blood gas analysis indicated respiratory acidosis which was persistent with a pH of 7.24 with PCO2 of 67, PO2 of 75 with bicarb 27 and satting 94%. He did have multiple ABGs that showed minimal improvement but was showing clinically to be stabilized and improved prior to discharge. His chemistries initially on admission showed sodium 146, all other electrolytes were within normal limits. BUN was initially 47, creatinine 2.49, at discharge creatinine was 2.26, BUN was 56. Blood sugars were fairly well controlled ranging from 88 to 207, magnesium was low initially on admission at 1.3, had normalized at discharge was 2.1. He had an elevated BNP of 272 initially on admission, at discharge was down to 188. He had a C reactive protein that was slightly elevated at 1.8. All liver functions showed to be within normal limits. Troponin was 0.05 initially. Urinalysis initially on admission prior to placement of Velázquez catheter showed 100 protein, 100 glucose, small amount of blood, otherwise within normal limits, just rare bacteria on microscopic. Repeat urinalysis after admission showed to be within normal limits. MICROBIOLOGY: Wound cultures of both feet showed no growth at 72 hours. Left foot showed probable skin contaminant. Blood cultures remain negative after 5 days. RADIOLOGY: He had multiple radiographic studies completed initially in the Emergency Department. He had a chest x-ray and per radiology interpretation showed a retrocardiac opacification may be secondary to atelectasis or pneumonia. Further chest x-rays were completed with the last one being on 05/10 and per radiology interpretation of a single view chest showed bilateral peripheral extensive ground glass opacification possibly from pulmonary edema or atypical infectious process or interstitial lung disease. He had multiple ultrasounds both of the lower extremities without any evidence of DVT and an ultrasound for an arterial study of the lower extremities per radiology interpretation showed essentially normal velocities and patency of the vessels throughout the right lower extremity but monophasic wave pattern suggested the possibility of inflow disease within the aorta or right iliac vessels. He also had an arterial study of the left lower extremity that showed mild to moderate atherosclerotic disease of the left lower extremity seen without ultrasound evidence of a high grade arterial occlusion or stenosis. He had an x-ray of both feet and per radiology interpretation there was no evidence of bony destructive changes. No evidence of fractures or dislocations. On the day before discharge, he had an ultrasound of the carotids and per radiology interpretation they were noted to be normal. HOSPITAL COURSE: Mr. Omid Porras was admitted on 05/05/17 as noted above. He was initiated on treatment with antibiotics initially to include vancomycin which was followed by Pharmacy per Pharmacy protocol as well as Zosyn, but as his kidney function showed decline he was transitioned from Zosyn to Meropenem. He did show good clinical response and was able to be titrated down on his BiPAP during the day. Cellulitis of the lower extremity resolved with elevation and rest, and further fluid restrictions and some diuretics and showed good response to treatment initiation with antibiotics. Further management was required of his Coumadin levels, but prior to discharge he had shown therapeutic levels. On the prior to discharge, it was reported he was having some difficulty with some expressive efforts considered to be a possible transient ischemic attack, but no evidence of neurological deficits were noted and it was transient in its presentation. No further complications were noted. It was felt that the patient had progressed clinically well enough to be continued in the outpatient setting. PLAN: Mr. Porras was discharged on 05/12/17 with instructions to return back to [facility] and have close clinical followup with Dr. Correia as well as Dr. Nicholson. He was again encouraged to stop smoking. He is to resume his medications from medical electronic record administration with new medications instructed to be includin. Vancomycin 1250 mg every 48 hours starting on 05/13/17 at 9:00 in the morning with mcc to monitor serum and creatinine levels, trough levels and dosings for a total of 6 days for 3 doses. 2. Merrem 250 mg every 12 hours to start at 2300 on 05/12/17 at 9 and 9 for a total of 6 days. He is to return to the hospital or call Dr. Correia with any questions. No new medications other than what was mentioned above or added to his medication regimen. He was discharged and transported back to [facility] in stable and improved condition. #[id number] [facility]
== END 2017-05-12 13:45 | DRG 193 ==
LOC: ER 03:16 → MS 08:05
PROVIDERS: ADMIT Nurse Practitioner Family; ATTEND Nurse Practitioner Family
DX: J18.9 Pneumonia, unspecified organism (principal); J96.21 Acute and chronic respiratory failure with hypoxia; J96.22 Acute and chronic respiratory failure with hypercapnia; J44.0 Chronic obstructive pulmonary disease with (acute) lower respiratory infection; L03.115 Cellulitis of right lower limb; L97.919 Non-pressure chronic ulcer of unspecified part of right lower leg with unspecified severity; G45.9 Transient cerebral ischemic attack, unspecified; R47.01 Aphasia; E87.2 Acidosis; N18.4 Chronic kidney disease, stage 4 (severe); I13.0 Hypertensive heart and chronic kidney disease with heart failure and stage 1 through stage 4 chronic kidney disease, or unspecified chronic kidney disease; E87.0 Hyperosmolality and hypernatremia; J44.1 Chronic obstructive pulmonary disease with (acute) exacerbation; I83.019 Varicose veins of right lower extremity with ulcer of unspecified site; I73.9 Peripheral vascular disease, unspecified; G47.33 Obstructive sleep apnea (adult) (pediatric); F17.200 Nicotine dependence, unspecified, uncomplicated; I48.2 Chronic atrial fibrillation; Z79.01 Long term (current) use of anticoagulants; Z87.01 Personal history of pneumonia (recurrent); E66.9 Obesity, unspecified; Z68.36 Body mass index [BMI] 36.0-36.9, adult; I50.9 Heart failure, unspecified; E86.0 Dehydration; Z86.718 Personal history of other venous thrombosis and embolism; Z89.422 Acquired absence of other left toe(s); Z89.421 Acquired absence of other right toe(s); Z89.412 Acquired absence of left great toe; Z89.411 Acquired absence of right great toe; Z79.51 Long term (current) use of inhaled steroids

== ENCOUNTER 2017-06-16 10:47 | Emergency (ER) | payer MEDICARE, MEDICAID ==
[2017-06-16] MEDS ORDERED: MIDAZOLAM INJ 5 MG/5 ML VIAL IV ONE (10:57)
[2017-06-16] MEDS ORDERED: IPRATROPIUM/ALBUTEROL 3 ML VIAL NEB ONE ×2 (10:58→11:46)
[2017-06-16] MEDS ORDERED: VECURONIUM BROMIDE 10 MG VIAL IV ONE ×4 (11:11→14:07)
[2017-06-16 11:22] VITALS: TEMP 96.8
--- NOTE | 2017-06-16 11:33 | ED.PDOC ---
History of Present Illness - General Chief Complaint: Respiratory Problem Stated Complaint: difficulty breathing Time Seen by Provider: 06/16/17 10:54 Source: EMS Exam Limitations: clinical condition, physical impairment Additional Information: Unresponsive on arrival - History of Present Illness Initial Comments: Omid Porras 72 y/o male with history of copd,ajith,chf brought by ems after he was found unresponsive inside his room at [facility].He had spontaneous respiration ,Bp-170/81 Sa02-79 % on cpap Timing/Duration: 1 hour Severity: severe Episode Description: see hpi Improving Factors: nothing Worsening Factors: nothing Allergies/Adverse Reactions: Allergies Celecoxib [From Celebrex] Allergy (Verified 06/16/17 11:22) Metformin Allergy (Verified 06/16/17 11:22) NSAIDs Allergy (Verified 06/16/17 11:22) Home Medications: Ambulatory Orders Ascorbic Acid [Vitamin C] 500 mg PO BID 02/11/17 Buspirone HCl 5 mg PO AC 02/11/17 Calcium Acetate (Phosphate Bin [Calcium Acetate] 2 tablet PO AC 02/11/17 Calcium Carbonate-Cholecalcife [Calcium 600+D3 600-400 mg-Unit] 1 tab PO DAILY 02/11/17 Duloxetine HCl [Cymbalta] 60 mg PO BEDTIME 02/11/17 Furosemide [Lasix] 40 mg PO DAILY 02/11/17 Gabapentin [Neurontin] 300 mg PO TID 02/11/17 Guaifenesin [Mucinex] 1,200 mg PO BID 02/11/17 HYDROcodone 7.5MG/APAP 325MG [Marlin 7.5/325] 1 tab PO Q4H PRN 02/11/17 Ipratropium/Albuterol [Duoneb] 3 ml NEB QID 02/11/17 Metoprolol Tartrate 25 mg PO BIDFD 02/11/17 Potassium Chloride [Potassium Chloride ER] 20 meq PO DAILYBK 02/11/17 Warfarin Sodium [Coumadin] 5 mg PO DAILY 02/11/17 predniSONE 20 mg PO DAILY 02/11/17 Acetaminophen [APAP] 650 mg PO Q4HR PRN 05/06/17 Albuterol Sulfate Nebs [Proventil Nebs] 2.5 mg INH Q6HR PRN 05/06/17 Docusate Sodium 100 mg PO BID 05/06/17 Fluticasone Furoate-Vilanterol [Breo Ellipta 200-25 Mcg/INH] 1 inh IN DAILY Polyethylene Glycol 3350 [Miralax] 17 gm PO DAILY 05/06/17 Bifidobacterium Infantis [Align] 4 mg PO BID cap 05/12/17 Meropenem [Merrem] 1 gm IVPB Q12H 7 Days vial 05/12/17 Vancomycin HCl Inj 1,250 mg IVPB Q48H vial 05/12/17 Review of Systems - Review of Systems Unable to Obtain Due To: condition, intubated, clinical condition Past Medical History (General) - Patient Medical History Hx Seizures: No Hx Stroke: No Hx Dementia: No Hx Asthma: No Hx of COPD: Yes Hx Cardiac Disorders: Yes - AFib Hx Congestive Heart Failure: Yes - Unspecified per history Hx Pacemaker: No Hx Hypertension: Yes Hx Thyroid Disease: No Hx Diabetes: No Hx Gastroesophageal Reflux: Yes Hx Renal Disease: No Hx Cancer: No Hx of HIV: No Hx Hepatitis C: No Hx MRSA: No MRSA Source:: Unknown Surgical History: cholecystectomy, other - cataract,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 - Vaccination History Hx Tetanus, Diphtheria Vaccination: Yes Hx Influenza Vaccination: Yes Hx Pneumococcal Vaccination: Yes - Social History Hx Tobacco Use: No Hx Chewing Tobacco Use: No - does not chew anymore Hx Alcohol Use: No Hx Substance Use: No Hx Substance Use Treatment: No Hx Depression: Yes Hx Physical Abuse: No Hx Emotional Abuse: No Hx Suspected Abuse: No - Activities of Daily Living Penitentiary/Assisted Living (if applicable):: [facility] Grooming Ability: Moderate Assistance Eating (Feeding) Ability: Minimum Assistance Toileting Ability: Moderate Assistance - Female History Patient : No Family Medical History - Family History Father Living Status: Age at (years of age): 101 Cause of : old age Mother Family History: No Known Name: mom Age (years): 56 Living Status: Cause of : cancer-brain Hx Family Asthma: No Hx Family Congestive Heart Failure: No Hx Family Hypertension: No Hx Family Stroke: No Hx Cardiac Disease: No Hx Family Diabetes: No Hx Family Cancer: Yes - mom-brain Physical Exam - Physical Exam General Appearance: Other - unresponsive Eye Exam: bilateral other - PERLL ENT Exam: pharynx normal, other - edentelous with dentures Neck: supple, trachea midline Respiratory: decreased breath sounds Cardiovascular/Chest: normal peripheral pulses, regular rate, rhythm, no murmur Peripheral Pulses: radial,right: 2+, radial,left: 2+ Gastrointestinal/Abdominal: normal bowel sounds, non tender, soft, other - obese Back Exam: normal inspection Mental Status: unresponsive Motor/Sensory: negative Babinski's sign Skin Exam: normal color, warm/dry Comments: GSC-8 Progress - Progress Progress: 06/16/17 12:07 Vital Signs - 8 hr 06/16/17 06/16/17 10:49 11:05 Temperature 96.8 F L Pulse Rate [ 73 98 H pulse ox] Respiratory 32 H Rate Blood Pressure 142/79 174/90 [Left Arm] O2 Sat by Pulse 85 L 91 L Oximetry - Results/Orders Results/Orders: 06/16/17 11:34 Catheter:Velázquez QSHIFT Intake/Output PRN URINE DRUG SCREEN, 7 ASSAY Stat 06/16/17 11:46 SVN/Updraft Therapy .PRN 06/16/17 11:47 SVN/Updraft Therapy .ONCE 06/16/17 11:56 LACTIC ACID Stat 06/16/17 12:45 BiPAP/CPAP Treatment DAILY EKG Assessment ONCE EKG STAT 06/16/17 12:46 Capnography .ONCE 06/16/17 13:08 URINALYSIS Stat 06/17/17 09:00 BiPAP Daily Updrafts Daily Ventilator Monitor Daily Laboratory Results - last 24 hr 06/16/17 06/16/17 06/16/17 11:56 11:56 11:56 WBC 9.7 RBC 4.51 L Hgb 12.6 L Hct 40.7 L MCV 90.2 MCH 27.9 MCHC 31.1 L RDW 19.7 H Plt Count 152 MPV 9.3 Absolute Neuts (auto) 8.60 H Absolute Lymphs (auto) 0.50 L Absolute Monos (auto) 0.60 Absolute Eos (auto) 0.00 Absolute Basos (auto) 0.00 Neutrophils % 88.5 H Lymphocytes % 4.8 L Monocytes % 5.9 Eosinophils % 0.4 L Basophils % 0.4 PT 41.7 H* INR 3.640 H* PTT (SP) 42.0 H D-Dimer, Quantitative < 230 pCO2 pO2 HCO3 ABG pH ABG O2 Saturation ABG Base Excess ABG Deoxyhemoglobin Oxyhemoglobin % Carboxyhemoglobin % Methemoglobin % Sat Calc Total Hemoglobin Sodium 145 Potassium 5.1 H Chloride 109 Carbon Dioxide 30 Anion Gap 11.1 L BUN 42 H Creatinine 2.51 H BUN/Creatinine Ratio 16.7 Random Glucose 119 H Serum Osmolality 300.3 H Calcium 8.3 L Magnesium 2.3 Total Bilirubin 0.7 Direct Bilirubin < 0.1 Indirect Bilirubin 0.6 AST 16 ALT 22 Alkaline Phosphatase 53 Creatine Kinase 42 CK-MB (CK-2) 4.5 H CK-MB (CK-2) % Not Reportable Troponin I 0.03 C-Reactive Protein 0.7 B-Natriuretic Peptide Serum Total Protein 6.0 L Albumin 3.1 L 06/16/17 06/16/17 11:56 12:09 WBC RBC Hgb Hct MCV MCH MCHC RDW Plt Count MPV Absolute Neuts (auto) Absolute Lymphs (auto) Absolute Monos (auto) Absolute Eos (auto) Absolute Basos (auto) Neutrophils % Lymphocytes % Monocytes % Eosinophils % Basophils % PT INR PTT (SP) D-Dimer, Quantitative pCO2 54 H pO2 174 H* HCO3 25.3 ABG pH 7.300 L ABG O2 Saturation 100.2 H ABG Base Excess -1.3 ABG Deoxyhemoglobin -0.2 L Oxyhemoglobin % 93.8 L Carboxyhemoglobin % 4.9 H Methemoglobin % Sat 1.5 Calc Total Hemoglobin 12.2 L Sodium Potassium Chloride Carbon Dioxide Anion Gap BUN Creatinine BUN/Creatinine Ratio Random Glucose Serum Osmolality Calcium Magnesium Total Bilirubin Direct Bilirubin Indirect Bilirubin AST ALT Alkaline Phosphatase Creatine Kinase CK-MB (CK-2) CK-MB (CK-2) % Troponin I C-Reactive Protein B-Natriuretic Peptide 510.0 H* Serum Total Protein Albumin - EKG/XRAY/CT EKG: Sinus, nonspecific ST T wave Chg Comments: HR-89 XRAY: chest - ;ET above lubna;left lung volume loss with effusion CT Ordered: Yes - head-no hemorrhage or recent infarct - Additional EKG/XRAY/Consults EKG #2: Sinus, nonspecific ST T wave Chg Comments: HR-89 Procedures - Intubation Time of Intubation: 11:10 - attempted 2 x then bougie was used Intubation Method: orotracheal Tube Size (cm): 8.0 Medications: Succinylcholine, Versed Breath Sounds after Intubation: equal Intubation Complications: no complications Post Intubation Xray: Yes - above lubna ET tube Departure - Departure Clinical Impression: Respiratory failure requiring intubation, Renal insufficiency, jail ( current) use of anticoagulants, History of atrial fibrillation, Sleep apnea, obstructive Altered mental status, unspecified Qualifiers: Altered mental status type: unspecified Qualified Code(s): R41.82 - Altered mental status, unspecified Time of Disposition: 13:20 Disposition: Transfer to Hospital Condition: Fair Departure Forms: Patient Portal Self Enrollment Referrals: CARLOS SALDANA [Primary Care Provider] - 1-2 Weeks Home Medications: Ambulatory Orders Ascorbic Acid [Vitamin C] 500 mg PO BID 02/11/17 Buspirone HCl 5 mg PO AC 02/11/17 Calcium Acetate (Phosphate Bin [Calcium Acetate] 2 tablet PO AC 02/11/17 Calcium Carbonate-Cholecalcife [Calcium 600+D3 600-400 mg-Unit] 1 tab PO DAILY 02/11/17 Duloxetine HCl [Cymbalta] 60 mg PO BEDTIME 02/11/17 Furosemide [Lasix] 40 mg PO DAILY 02/11/17 Gabapentin [Neurontin] 300 mg PO TID 02/11/17 Guaifenesin [Mucinex] 1,200 mg PO BID 02/11/17 HYDROcodone 7.5MG/APAP 325MG [Marlin 7.5/325] 1 tab PO Q4H PRN 02/11/17 Ipratropium/Albuterol [Duoneb] 3 ml NEB QID 02/11/17 Metoprolol Tartrate 25 mg PO BIDFD 02/11/17 Potassium Chloride [Potassium Chloride ER] 20 meq PO DAILYBK 02/11/17 Warfarin Sodium [Coumadin] 5 mg PO DAILY 02/11/17 predniSONE 20 mg PO DAILY 02/11/17 Acetaminophen [APAP] 650 mg PO Q4HR PRN 05/06/17 Albuterol Sulfate Nebs [Proventil Nebs] 2.5 mg INH Q6HR PRN 05/06/17 Docusate Sodium 100 mg PO BID 05/06/17 Fluticasone Furoate-Vilanterol [Breo Ellipta 200-25 Mcg/INH] 1 inh IN DAILY Polyethylene Glycol 3350 [Miralax] 17 gm PO DAILY 05/06/17 Bifidobacterium Infantis [Align] 4 mg PO BID cap 05/12/17 Meropenem [Merrem] 1 gm IVPB Q12H 7 Days vial 05/12/17 Vancomycin HCl Inj 1,250 mg IVPB Q48H vial 05/12/17 Transfer to Outside Facility - Transfer Information Accepting Provider:: Dr. Mikhail Das Accepting Facility: [facility]
--- NOTE | 2017-06-16 11:51 | RAD ---
EXAM DESCRIPTION: Chest,1 View CLINICAL HISTORY: S/P INTUBATION COMPARISON: Portable chest 05/10/2017. TECHNIQUE: AP portable taken at 1122 hours, upright position. FINDINGS: Endotracheal tube is been introduced and is approximately 2 cm above the lubna directed to the right of midline. Volume loss on the right with possible infiltrate or pleural effusion in the base. This may be partially artifactual due to patient in CHAMPION position. Heart size and pulmonary vascularity stable. Stable infiltrate right lung. IMPRESSION: Endotracheal tube in customary position. Left lung volume loss with effusion and infiltrate in the base but volume loss may be exaggerated due to chest rotation. Electronically signed by: Everett Solis MD 06/16/2017 11:49 AM CDT
[2017-06-16] MEDS ORDERED: WATER FOR INJ 10 ML VIAL INJ ONE ×2 (12:05→14:05)
[2017-06-16] MEDS ORDERED: SUCCINYLCHOLINE CHLORIDE 200 MG/10 ML VIAL IV ONE (12:19)
--- NOTE | 2017-06-16 13:04 | CT ---
EXAM DESCRIPTION: Head: Computed Tomography. CLINICAL HISTORY: AMS COMPARISON: CT scan of the head without contrast 05/11/2017 TECHNIQUE: Non-helical axial scans through the skull and brain, at 2.5 mm intervals, non-contrast. Coronal and sagittal reconstructions. Total Exam DLP: 967.47 mGy-cm. This exam was performed according to our departmental dose-optimization program which includes automated exposure control, adjustment of the mA and/or kV according to patient size and/or use of iterative reconstruction technique; to reduce radiation dose to as low as reasonably achievable (ALARA). FINDINGS: No hemorrhage, no mass-effect, and no midline shift. Minimal low-density in the periventricular white matter at and superior to the level of the lateral ventricles. Vascular calcifications anterior and posterior; physiologic calcifications in the pineal gland and choroid plexus. Probable atherosclerotic calcifications in the bilateral basal ganglia. No effacement or displacement of the ventricles, CSF spaces, or subdural spaces. No extra axial fluid collection or hemorrhage. No gross abnormalities of the bony calvarium. Included paranasal sinuses and mastoid air cells are well - aerated. However, marked congestion with minimal aeration of the bilateral nasal passageways with no air seen in the nasopharynx and oropharynx. Oral pharyngeal tube on the right. IMPRESSION: 1. No hemorrhage, no mass effect, no midline shift. Minimal periventricular leukomalacia most likely related to cerebral microvascular disease. Vascular calcifications anterior posterior and atherosclerotic calcifications in the basal ganglia. 2. CT scans are insensitive for detecting small CVAs in the first 24 hours after onset. Evaluation of the brain stem is also limited. If symptoms persist, consider NON-EMERGENT MRI scan of the brain with diffusion imaging. 3. Soft tissue obstruction of the bilateral nasal passageways nasopharynx and oropharynx. Oral pharyngeal tube on the right. Electronically signed by: Everett Solis MD 06/16/2017 1:03 PM CDT
[2017-06-16 14:30] VITALS: O2SAT 99
[2017-06-16 14:31] VITALS: BP 132/93
== END 2017-06-16 14:15 | disposition short-term general hospital (02) ==
LOC: ER 10:47
DX: J96.90 Respiratory failure, unspecified, unspecified whether with hypoxia or hypercapnia (principal); N28.9 Disorder of kidney and ureter, unspecified; I48.91 Unspecified atrial fibrillation; G47.33 Obstructive sleep apnea (adult) (pediatric); R41.82 Altered mental status, unspecified; J44.9 Chronic obstructive pulmonary disease, unspecified; I11.0 Hypertensive heart disease with heart failure; I50.9 Heart failure, unspecified; Z79.899 Other long term (current) drug therapy; Z79.01 Long term (current) use of anticoagulants
CPT/HCPCS: 36415; 36600; 70450; 71045; 80048; 80076; 80307; 81001; 82550; 82553; 82803; 82805; 83605; 83880; 84484; 85025; 85379; 85610; 85730; 86140; 93005; 94002; 94644; 94660; 94770; A4216; J0330; J2060; J2250; J7620